=== PATIENT | female | born 1980 | race Caucasian/White ===

== ENCOUNTER 2023-01-09 15:54 | Observation (INO) ==
[2023-01-09 17:12] LABS: Appearance Urine Clear (Clear); Bilirubin Urine Negative (Negative); Blood Urine Negative (Negative); Color Urine Yellow; Glucose Urine UA Negative (Negative); Ketones Urine Negative (Negative); Leukocyte Esterase Urine Negative (Negative); Nitrite Urine Negative (Negative); Protein Urine Negative (Negative); Specific Gravity Urine 1.004 (1.000-1.030); Urobilinogen Urine Negative (Negative); pH Urine 6.5 (4.5-7.5)
[2023-01-09] MEDS ORDERED: SODIUM CHLORIDE 0.9% 500 ML IV SCH (17:15)
[2023-01-09 17:24] LABS: Basophils # (auto) 0.02 K/uL (0-0.2); Basophils % (auto) 0.3 %; Eosinophils # (auto) 0.27 K/uL (0-0.50); Hematocrit (blood only) 35.6 % (37.0-47.0); Hemoglobin 12.1 g/dl (12.0-16.0); Immature Granulocytes # (auto) 0.01 K/uL (0.01-0.20); Immature Granulocytes % (auto) 0.1 %; Lymphocytes % (auto) 25.4 %; Mean Corpuscular Hemoglobin 30.8 pg (25.0-34.0); Mean Corpuscular Volume 90.6 fL (80.0-100.0); Mean Platelet Volume 10.8 fL (9.4-12.4); Monocytes # (auto) 0.33 K/uL (0.11-0.59); Monocytes % (auto) 4.9 %; Neutrophils # (auto) 4.36 K/uL (1.40-6.50); Neutrophils % (auto) 65.3 %; Platelet Count 181 K/uL (130-400); RDW Coefficient of Variation 13.1 % (11.5-14.5); RDW Standard Deviation 43.4 fL (36.4-46.3); Red Blood Count 3.93 M/uL (4.20-5.40); White Blood Count 6.69 K/ul (4.8-10.8)
[2023-01-09] MEDS ORDERED: THIAMINE HCL 100 MG, FOLIC ACID 1 MG in SODIUM CHLORIDE 0.9% 1000ML 1,000 ML IV STA (17:30)
[2023-01-09] MEDS ORDERED: CEROVITE ADV FORMULA TAB PO STA (17:30)
--- NOTE | 2023-01-09 17:30 | Emergency Department Note ---
Impression & Plan Alcohol abuse, Benzodiazepine abuse, Withdrawal syndrome ED Provider Note NAME: DAGMAR LI AGE: 42 SEX: F : 1980 ARRIVES VIA: Walk-In INFORMANT: [Patient] ED PROVIDER(S): [Delano Perry MD] CHIEF COMPLAINT: Detox request HISTORY OF PRESENT ILLNESS: The patient is a 42-year-old female with a history of alcohol abuse and benzodiazepine abuse. She had been sober for 19 months but a week ago, had some wine. The patient states that she then started taking a lot of Klonopin. She had been taking 1 Klonopin daily, 1 mg. The patient states that she took way too many Klonopin and was in the ED until she sobered up. She states that her last dose of Klonopin was yesterday morning, 1 mg. She has no more to take and she knows she will start to withdrawal. The patient states that in the past, she has had hallucinations and seizures from withdrawal. She currently feels paranoid. She is not suicidal but does not care if she dies. She is asking to be admitted to the hospital for detox for a few days and then possibly be transferred to a center for more intensive therapy. There has been no cough or cold or congestion. She has not had fever. No vomiting or diarrhea PMHx/PSHx: See Below SOCIAL HISTORY: See Below. PHYSICAL EXAM: GENERAL: Patient is in no acute distress. HEENT: No acute trauma, normocephalic atraumatic, mucous membranes moist, no nasal congestion. NECK: No stridor, no adenopathy, no meningismus, trachea is midline. LUNGS: Clear to auscultation bilaterally, no wheeze, no rhonchi, breath sounds equal. HEART: Without murmurs gallops or rubs, regular rate and rhythm. ABDOMEN: Soft, nontender, bowel sounds positive, no peritonitis. EXTREMITIES: No cyanosis or edema, full range of motion of all the joints without pain or difficulty, no signs for acute trauma. NEUROLOGIC: Oriented x 3, no acute motor or sensory deficits, no focal weakness. SKIN: No rash, no jaundice, no diaphoresis. Psychiatric: Cooperative, voluntary, not actively suicidal. DIFFERENTIAL DIAGNOSIS: Need for detox, psychosis, electrolyte imbalance, anemia, thyroid disorder, among others. EMERGENCY DEPARTMENT COURSE/PROCEDURES: Prior/Outside records reviewed: Previous ED note. ECG per my interpretation: Indication was withdrawal. The ECG shows a normal sinus rhythm with a rate of 77. There is some baseline artifact. There is no ST elevation, no PVCs but the QTc is 445. Continuous Cardiac Monitoring per my interpretation: An order was placed for continuous cardiac monitoring. The monitor shows a rate of 99 with normal sinus rhythm. MEDICAL DECISION MAKING: There is no leukocytosis or concerning anemia. There is a normal platelet count. Potassium slightly low at 3.2. No renal failure. No concerning liver enzyme elevation. Patient appeared to be in a euthyroid state. testing returned negative. Urinalysis did not show infection. Aspirin, Tylenol levels were undetectable. Alcohol level was elevated at 180. Urine tox was negative. COVID test returned negative. ECG showed a normal sinus rhythm, no ischemia or dysrhythmia. On exam, the patient was not toxic or febrile. She was beginning to feel paranoia consistent with early benzodiazepine and/or alcohol withdrawal. Patient received IV saline, 500 cc. She was given IV saline with multivitamins, thiamine and folate. She received 5 mg of IV Valium. The patient presents with benzodiazepine withdrawal. She has gone through this type of withdrawal before. She has been quite ill with this type of withdrawal before. The patient was asking for detox, this seemed appropriate. She currently seems medically clear for hospitalization. I spoke with the patient and case management, the on-call hospitalist was consulted. DISPOSITION: Patient's presentation and findings warrant a hospital stay. Past Med/Surg History Medical History History of alcohol abuse Hx of drug abuse Hx drug and alcohol abuse. Has been free from drugs and alcohol since May 2021. Intentional overdose Surgical History History of D&C History of oral surgery Family History Sister Breast cancer Denies family history of Ovarian cancer Prostate cancer Myocardial infarction Colorectal cancer Social History Smoking Status: Never smoker Age Started Using Tobacco: 41; Age Quit Using Tobacco: 42; Cigarettes Per Day: 20; Second Hand Exposure: No; Do You Dip or Chew Tobacco: No; Hx Alcohol Use: Yes Alcohol type: wine Hx Substance Use: Yes Last Used Substance: Days (ago) Last Used Substance Other:: 2 Substance Use Type Other:: Benzodiazepines Preferred Language: Nigerian Communication Ability: Effective Micro Lab Analyst Required: No Beliefs That Will Affect Care: None marital status: Current Living Situation: Alone Current Living Situation Comment: Lives at home alone current occupational status: unemployed How many Children do You have: 0 Other Information That Helps Us Care for You: No Feels Safe at Home: Hesitant to Answer Safety Concerns: Afraid for Self Childhood Exposure to Second-Hand Smoke: No Diet: regular caffeine: Yes Dental Care, Regularly: No Physical Activity Frequency: Daily Seatbelt Use: always Sunscreen Use: Yes Allergies Allergies Allergy/AdvReac Type Severity Reaction Status Date / Time No Known Allergies Allergy Verified 11/13/22 09:09 Home Meds Home Medications Medication Instructions Recorded Confirmed clonazepam 1 mg tablet (Klonopin) 1 mg PO DAILY 09/18/22 11/13/22 vortioxetine 10 mg tablet 10 mg PO DAILY 11/13/22 11/13/22 (Trintellix) Previous Rx's Medication Instructions Recorded doxycycline monohydrate 100 mg 100 mg PO BID #20 caps 11/13/22 capsule clonazepam 0.5 mg tablet See Rx Instructions .Route 01/07/23 .COMPLEX #5 tabs Results & Data (ED) Vital Signs Vital Signs - 24 hr 01/09/23 15:57 01/09/23 16:12 01/09/23 15:54 Temperature 36.7 C Temperature Source Temporal Artery Scan Pulse Rate 97 H 89 Pulse Rate from SpO2 Sensor Pulse Rhythm Regular Pulse Strength Normal Respiratory Rate 18 Blood Pressure 131/78 Blood Pressure Mean 95 Pulse Oximetry 96 98 Oxygen Delivery Method Room Air Room Air Oxygen Flow Rate 0 Sepsis Recent Fever Within 48 Hours No Sepsis New/Unexplained Change in Mental Status N/A Sepsis Action Taken by Nursing No Action Required Pulse Oximetry Post Tiitration 98 01/09/23 16:12 01/09/23 16:13 01/09/23 16:30 Temperature Temperature Source Pulse Rate 89 92 H Pulse Rate from SpO2 Sensor 89 94 H Pulse Rhythm Pulse Strength Respiratory Rate 32 H 20 Blood Pressure 123/74 Blood Pressure Mean 89 Pulse Oximetry 96 96 Oxygen Delivery Method Oxygen Flow Rate Sepsis Recent Fever Within 48 Hours Sepsis New/Unexplained Change in Mental Status Sepsis Action Taken by Nursing Pulse Oximetry Post Tiitration 01/09/23 16:40 01/09/23 16:50 Temperature Temperature Source Pulse Rate 87 103 H Pulse Rate from SpO2 Sensor 87 101 H Pulse Rhythm Pulse Strength Respiratory Rate 28 H 15 Blood Pressure Blood Pressure Mean Pulse Oximetry 97 94 Oxygen Delivery Method Oxygen Flow Rate Sepsis Recent Fever Within 48 Hours Sepsis New/Unexplained Change in Mental Status Sepsis Action Taken by Nursing Pulse Oximetry Post Tiitration Home Medications Current Medication List: was personally reviewed by me Laboratory Data Attestation: I reviewed the patient's lab results. 01/09/23 16:30 01/09/23 16:30 Lab Results 01/09/23 01/09/23 01/09/23 Range/Units 16:30 16:30 16:30 WBC 6.69 (4.8-10.8) K/ul RBC 3.93 L (4.20-5.40) M/uL Hgb 12.1 (12.0-16.0) g/dl Hct 35.6 L (37.0-47.0) % MCV 90.6 (80.0-100.0) fL MCH 30.8 (25.0-34.0) pg MCHC 34.0 (32.0-36.0) g/dL RDW Std Deviation 43.4 (36.4-46.3) fL RDW Coeff of [place] 13.1 (11.5-14.5) % Plt Count 181 (130-400) K/uL MPV 10.8 (9.4-12.4) fL Immature Gran % (Auto) 0.1 % Neut % (Auto) 65.3 % Lymph % (Auto) 25.4 % [place] % (Auto) 4.9 % Eos % (Auto) 4.0 % Baso % (Auto) 0.3 % Neut # (Auto) 4.36 (1.40-6.50) K/uL Lymph # (Auto) 1.70 (1.2-3.4) K/uL [place] # (Auto) 0.33 (0.11-0.59) K/uL Eos # (Auto) 0.27 (0-0.50) K/uL Baso # (Auto) 0.02 (0-0.2) K/uL Immature Gran # (Auto) 0.01 (0.01-0.20) K/uL Sodium 140 (136-145) mmol/L Potassium 3.2 L (3.5-5.1) mmol/L Chloride 108 H (98-107) mmol/L Carbon Dioxide 24 (21-32) mmol/L Anion Gap 8 (3-11) BUN 10 (6-23) mg/dl Creatinine 0.65 (0.6-1.2) mg/dl Est Cr Clr Drug Dosing 116.6 ml/min Est GFR ( Amer) 126.0 ml/min Est GFR (Non-Af Amer) 108.7 ml/min BUN/Creatinine Ratio 15.4 (10-20) Glucose 119 H (70-99(Fasting)) mg/dl Calcium 8.9 (8.6-10.3) mg/dl Magnesium 2.0 (1.7-2.4) mg/dl Total Bilirubin 0.3 (0.2-1.0) mg/dl AST 25 (13-39) U/L ALT 20 (7-52) U/L Alkaline Phosphatase 32 L (34-104) U/L Total Protein 7.0 (6.0-8.3) gm/dl Albumin 4.4 (3.4-5.0) gm/dl Globulin 2.6 (2.5-4.0) gm/dl Albumin/Globulin Ratio 1.7 (0.9-2) TSH 1.053 (0.300-4.500) uIu/ml HCG, Qual (Negative) Urine Color Urine Appearance (Clear) Urine pH (4.5-7.5) Ur Specific [place] (1.000-1.030) Urine Protein (Negative) Urine Glucose (UA) (Negative) Urine Ketones (Negative) Urine Blood (Negative) Urine Nitrite (Negative) Urine Bilirubin (Negative) Urine Urobilinogen (Negative) Ur Leukocyte Esterase (Negative) Salicylates (3.0-30) mg/dl Urine Opiates Screen (Neg) Ur Methadone, Qual (Neg) Acetaminophen (10-30) ug/ml Urine Barbiturates (Neg) Ur Phencyclidine (PCP) (Neg) U Amphetamin/Meth Scrn (Neg) MDMA (Ecstasy) Screen (Neg) U Benzodiazepines Scrn (Neg) Ur Cocaine Metabolite (Neg) U Marijuana (THC) Screen (Neg) Ethyl Alcohol mg/dL (<10.0) mg/dl 01/09/23 01/09/23 01/09/23 Range/Units 16:30 16:30 16:30 WBC (4.8-10.8) K/ul RBC (4.20-5.40) M/uL Hgb (12.0-16.0) g/dl Hct (37.0-47.0) % MCV (80.0-100.0) fL MCH (25.0-34.0) pg MCHC (32.0-36.0) g/dL RDW Std Deviation (36.4-46.3) fL RDW Coeff of [place] (11.5-14.5) % Plt Count (130-400) K/uL MPV (9.4-12.4) fL Immature Gran % (Auto) % Neut % (Auto) % Lymph % (Auto) % [place] % (Auto) % Eos % (Auto) % Baso % (Auto) % Neut # (Auto) (1.40-6.50) K/uL Lymph # (Auto) (1.2-3.4) K/uL [place] # (Auto) (0.11-0.59) K/uL Eos # (Auto) (0-0.50) K/uL Baso # (Auto) (0-0.2) K/uL Immature Gran # (Auto) (0.01-0.20) K/uL Sodium (136-145) mmol/L Potassium (3.5-5.1) mmol/L Chloride (98-107) mmol/L Carbon Dioxide (21-32) mmol/L Anion Gap (3-11) BUN (6-23) mg/dl Creatinine (0.6-1.2) mg/dl Est Cr Clr Drug Dosing ml/min Est GFR ( Amer) ml/min Est GFR (Non-Af Amer) ml/min BUN/Creatinine Ratio (10-20) Glucose (70-99(Fasting)) mg/dl Calcium (8.6-10.3) mg/dl Magnesium (1.7-2.4) mg/dl Total Bilirubin (0.2-1.0) mg/dl AST (13-39) U/L ALT (7-52) U/L Alkaline Phosphatase (34-104) U/L Total Protein (6.0-8.3) gm/dl Albumin (3.4-5.0) gm/dl Globulin (2.5-4.0) gm/dl Albumin/Globulin Ratio (0.9-2) TSH (0.300-4.500) uIu/ml HCG, Qual (Negative) Urine Color Yellow Urine Appearance Clear (Clear) Urine pH 6.5 (4.5-7.5) Ur Specific [place] 1.004 (1.000-1.030) Urine Protein Negative (Negative) Urine Glucose (UA) Negative (Negative) Urine Ketones Negative (Negative) Urine Blood Negative (Negative) Urine Nitrite Negative (Negative) Urine Bilirubin Negative (Negative) Urine Urobilinogen Negative (Negative) Ur Leukocyte Esterase Negative (Negative) Salicylates < 3.0 L (3.0-30) mg/dl Urine Opiates Screen (Neg) Ur Methadone, Qual (Neg) Acetaminophen < 3 L (10-30) ug/ml Urine Barbiturates (Neg) Ur Phencyclidine (PCP) (Neg) U Amphetamin/Meth Scrn (Neg) MDMA (Ecstasy) Screen (Neg) U Benzodiazepines Scrn (Neg) Ur Cocaine Metabolite (Neg) U Marijuana (THC) Screen (Neg) Ethyl Alcohol mg/dL 180.0 H (<10.0) mg/dl 01/09/23 01/09/23 Range/Units 16:30 16:30 WBC (4.8-10.8) K/ul RBC (4.20-5.40) M/uL Hgb (12.0-16.0) g/dl Hct (37.0-47.0) % MCV (80.0-100.0) fL MCH (25.0-34.0) pg MCHC (32.0-36.0) g/dL RDW Std Deviation (36.4-46.3) fL RDW Coeff of Zahra[place] (11.5-14.5) % Plt Count (130-400) K/uL MPV (9.4-12.4) fL Immature Gran % (Auto) % Neut % (Auto) % Lymph % (Auto) % [place] % (Auto) % Eos % (Auto) % Baso % (Auto) % Neut # (Auto) (1.40-6.50) K/uL Lymph # (Auto) (1.2-3.4) K/uL [place] # (Auto) (0.11-0.59) K/uL Eos # (Auto) (0-0.50) K/uL Baso # (Auto) (0-0.2) K/uL Immature Gran # (Auto) (0.01-0.20) K/uL Sodium (136-145) mmol/L Potassium (3.5-5.1) mmol/L Chloride (98-107) mmol/L Carbon Dioxide (21-32) mmol/L Anion Gap (3-11) BUN (6-23) mg/dl Creatinine (0.6-1.2) mg/dl Est Cr Clr Drug Dosing ml/min Est GFR ( Amer) ml/min Est GFR (Non-Af Amer) ml/min BUN/Creatinine Ratio (10-20) Glucose (70-99(Fasting)) mg/dl Calcium (8.6-10.3) mg/dl Magnesium (1.7-2.4) mg/dl Total Bilirubin (0.2-1.0) mg/dl AST (13-39) U/L ALT (7-52) U/L Alkaline Phosphatase (34-104) U/L Total Protein (6.0-8.3) gm/dl Albumin (3.4-5.0) gm/dl Globulin (2.5-4.0) gm/dl Albumin/Globulin Ratio (0.9-2) TSH (0.300-4.500) uIu/ml HCG, Qual Negative (Negative) Urine Color Urine Appearance (Clear) Urine pH (4.5-7.5) Ur Specific [place] (1.000-1.030) Urine Protein (Negative) Urine Glucose (UA) (Negative) Urine Ketones (Negative) Urine Blood (Negative) Urine Nitrite (Negative) Urine Bilirubin (Negative) Urine Urobilinogen (Negative) Ur Leukocyte Esterase (Negative) Salicylates (3.0-30) mg/dl Urine Opiates Screen Neg (Neg) Ur Methadone, Qual Neg (Neg) Acetaminophen (10-30) ug/ml Urine Barbiturates Neg (Neg) Ur Phencyclidine (PCP) Neg (Neg) U Amphetamin/Meth Scrn Neg (Neg) MDMA (Ecstasy) Screen Neg (Neg) U Benzodiazepines Scrn Neg (Neg) Ur Cocaine Metabolite Neg (Neg) U Marijuana (THC) Screen Neg (Neg) Ethyl Alcohol mg/dL (<10.0) mg/dl Administered Medications Discontinued Medications Diazepam (Diazepam 5 Mg/Ml Inj 10ml Vial) 5 mg IV NOW STA Stop: 01/09/23 17:31 Last Admin: 01/09/23 18:30 Dose: 5 mg Documented By: ACC Sodium Chloride (Nss) 500 mls @ 999 mls/hr IV .Q31M LEXX Stop: 01/09/23 17:45 Last Infusion: 01/09/23 18:49 Dose: 0 mls/hr Documented By: Admin: 01/09/23 17:30 Dose: 999 mls/hr Documented By: ACC Thiamine HCl 100 mg/ Folic (Acid 1 mg/ Sodium Chloride) 1,001.2 mls @ 500 mls/hr IV .Q2H1M STA; Protocol Stop: 01/09/23 19:30 Last Infusion: 01/09/23 21:45 Dose: 0 mls/hr Documented By: Admin: 01/09/23 18:31 Dose: 500 mls/hr Documented By: ACC Multivitamins/Minerals (Cerovite Adv Formula Tab) 1 tab PO ONE STA Stop: 01/09/23 17:31 Last Admin: 01/09/23 18:30 Dose: 1 tab Documented By: ACC Potassium Chloride (Potassium Chloride Crtab 20 Meq Tabcr) 20 meq PO NOW STA Stop: 01/09/23 18:34 Last Admin: 01/09/23 19:23 Dose: 20 meq Documented By: Discharge Plan Visit Data Chief Complaint: Detox Request Stated Complaint: DETOX REQUEST ED Provider: Delano Perry Discharge Problem: Alcohol abuse, Benzodiazepine abuse, Withdrawal syndrome Patient Disposition: Admitted As Inpatient Condition: Fair Discharge Instructions Interventions: ED Discharge Assessment Last Done: 01/09/23 20:00
[2023-01-09 17:31] LABS: Pregnancy Test, Serum Negative (Negative)
[2023-01-09 17:42] LABS: Albumin Globulin Ratio 1.7 (0.9-2); Albumin Level 4.4 gm/dl (3.4-5.0); BUN Creatinine Ratio 15.4 (10-20); Bilirubin,Total 0.3 mg/dl (0.2-1.0); Calcium 8.9 mg/dl (8.6-10.3); Creatinine Clr Calc Pharmacy 116.6 ml/min; Est GFR (Non-African American) 108.7 ml/min; Globulin 2.6 gm/dl (2.5-4.0); Potassium 3.2 mmol/L (3.5-5.1)
[2023-01-09 17:59] LABS: Acetaminophen < 3 ug/ml (10-30); Salicylate < 3.0 mg/dl (3.0-30)
[2023-01-09 18:08] LABS: Amphetamines+Metham, Urine Neg (Neg); Barbiturates, Urine Neg (Neg); Benzodiazepine, Urine Neg (Neg); Cocaine, Urine Neg (Neg); MDMA (Ecstacy), Urine Neg (Neg); Methadone, Urine Neg (Neg); Opiate, Urine Neg (Neg); Phencyclidine, Urine Neg (Neg)
--- NOTE | 2023-01-09 18:23 | History & Physical Report ---
Date of Service January 09, 2023 Assessment & Plan (1) Intentional clonazepam overdose: Plan: Clonazepam overdose, alcohol abuse with history of seizure and DTs/concern for suicidality Patient has a prior history of both alcohol abuse and benzodiazepine abuse She is continued on clonazepam 1 mg daily for breathing somatic dysfunction which had failed all treatments except gabapentin and clonazepam She reports that she was in rehab "a while "ago and was clean for 19 months until 1 week ago when she had some wine and then began to decompensate and was drinking "a lot "of wine and sometimes fireball She reports that 2 days ago she took all 25 remaining 1 mg tablets of her Klonopin. She reports she did not have suicidal intention or ideation, but also did not care if she lived. She reports she took these because she was having trouble sleeping waking up and worrying about whether she would or would not drink alcohol. 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 Positive alcohol while in the ER, last drink was morning of admission. Denies any benzodiazepine ingestion since she took the tablets 2 days ago Many years ago at a prior hospitalization for detox she had hallucinations and seizures at around day 3 of benzodiazepine withdrawal Received diazepam while in the ER We will admit on DHARMESH S protocol. No airway compromise CM and psych consulted. Does not overtly endorse SI/HI, but did have gestural ingestion with the intention to make her worries go away. Continue on one-to-one and suicide precautions with safe tray at this time Received banana bag Continue thiamine, folic acid daily Ethyl alcohol 180 at 1630, acetaminophen is negative, salicylates negative. No coingestions - Remaining tox screen negative - Clonazepam 2 days ago unlikely to precipiate toxic ingestion at this time. Rouses easily, although was initially very confused and does not remember coming to the ER. After reorientation is able to give a reasonably accurate history. Given high risk of seizures and benzo withdrawal agree with diazepam administration while in ER, and will continue DHARMESH S. Patient is agreeable to looking for rehab placement EKG: QTc 445, normal sinus rhythm without ischemic change Somatic dysfunction of breathing Patient reports a discomfort with breathing which while is not anxiety is related to anxiety and is only improved with clonazepam AWSS as noted No hypoxia DVT prophylaxis: Low risk SCDs Disposition: PCU given seizure precautions, past seizures, and active withdrawal with congestion CODE STATUS: Full Diet: Safe Tray (2) Alcohol intoxication: (3) Intentional overdose: (4) Somatic dysfunction of pelvic region: (5) Hx of drug abuse: History of Present Illness Primary Care Provider: DO Adia Michaelgaurav Woo is a 42-year-old female with a past medical history of alcohol abuse, clonazepam abuse, somatic dysfunction, anxiety/depression who presents after a relapse with alcohol use and withdrawal symptoms. She has a history of hallucinations and seizures with alcohol withdrawal in the past. Adia reports she has been abusing benzos. she has been sober for 19 months and last she relapsed and started drinking some wine but then decided to take all of her Klonopin. Took 25x 1mg tablets of klonopin 2 days ago. Takes clonopin 1mg per day at bedtime for 'not anxiety but a breathing condition related to anxiety which the klopin helps." Had tried many remedies over 20 years and only gabapentin and klonopin help. No shortness of breath or chest pain at time of admission. Adia reports 'things were going really well last week." [place] to be closer to family. Doing well with her own apartment, an dher job has been going well and isn't really sure what caused her to relapse. She had a interview at [facility] but felt it went good and 'felt like fuck it I'll celebrate a little.' She reports that she was tired of waking up and thinking and worrying over drinking after having some wine the night before so took the klonopin to make the thoughts go away. Sheknows she could from klonopin and while she did not have active SI, also did not care if she or not. Denies SI/HI. Medical History: Reviewed Medications: Reviewed Surgical History: Reviewed Family history: Reviewed Allergies: Reviewed Social History: See HPI Code Status: Full Allergies Allergy/AdvReac Type Severity Reaction Status Date / Time No Known Allergies Allergy Verified 11/13/22 09:09 Home Medications Medication Instructions Recorded Confirmed Type clonazepam 1 mg tablet (Klonopin) 1 mg PO DAILY 09/18/22 11/13/22 History doxycycline monohydrate 100 mg 100 mg PO BID #20 caps 11/13/22 11/13/22 Rx capsule vortioxetine 10 mg tablet 10 mg PO DAILY 11/13/22 11/13/22 History (Trintellix) clonazepam 0.5 mg tablet See Rx Instructions .Route 01/07/23 Rx .COMPLEX #5 tabs Past Med/Surg History Surgical History History of D&C History of oral surgery Family History Sister Breast cancer Denies family history of Ovarian cancer Prostate cancer Myocardial infarction Colorectal cancer Social History Smoking Status: Former smoker Age Started Using Tobacco: 41; Age Quit Using Tobacco: 42; Cigarettes Per Day: 20; Second Hand Exposure: No; Do You Dip or Chew Tobacco: No; Hx Alcohol Use: No Hx Substance Use: No Preferred Language: Khmer Communication Ability: Effective Soc Analyst Required: No marital status: Current Living Situation: Family current occupational status: unemployed How many Children do You have: 0 Feels Safe at Home: Yes Childhood Exposure to Second-Hand Smoke: No Diet: regular caffeine: Yes Dental Care, Regularly: No Physical Activity Frequency: Daily Seatbelt Use: always Sunscreen Use: Yes Review of Systems Review of Systems: All systems reviewed & are unremarkable except as noted in HPI & below Physical Exam Physical Exam: General: Not oriented when she awakes initially, reorients easily including ER/day of week/place HEENT: Atraumatic, normocephalic. Patient/hearing grossly intact Pulm: CTAB A&P. -wheezes, -rales, -rhonchi. Symmetrical chest rise. No increased work of breathing. No respiratory distress. Cardiac: Regular, tachycardic, no murmurs or radial pulses intact and symmetrical. Abdominal: Nontender, nondistended, soft. BS present. Extremities: Slightly tremulous, otherwise warm and dry. Sensation soft touch intact in hands and feet. Moves all extremities equally. No interdigital or antecubital chahal Results & Data Results & Data Vital Signs (Past 12 Hours) Vital Signs Temp Pulse Resp BP Pulse Ox O2 Del Method O2 Flow Rate 01/09/23 16:50 103 H 15 94 01/09/23 16:40 87 28 H 97 01/09/23 16:30 92 H 20 96 01/09/23 16:13 89 32 H 96 01/09/23 16:12 123/74 01/09/23 15:54 98 Room Air 0 01/09/23 16:12 89 01/09/23 15:57 36.7 C 97 H 18 131/78 96 Room Air PG Care Time/CCT Total # of Minutes Spent Total Time Spent with Patient: Total time spent is greater than 50% in coordination of care (as documented) at patient's floor/unit and/or counseling patient: Coding Level of Care Code 36820 INT INP/OBS CARE 3/75MIN Diagnoses Intentional clonazepam overdose T42.4X2A Alcohol intoxication F10.929 Intentional overdose T50.902A Somatic dysfunction of pelvic region M99.05 Hx of drug abuse F19.11
[2023-01-09] MEDS ORDERED: POTASSIUM CHLORIDE CRTAB 20 MEQ TABCR PO STA (18:33)
[2023-01-09] MEDS ORDERED: LORazepam 2 MG/1 ML VIAL IV PRN ×3 (20:56)
[2023-01-09] MEDS ORDERED: Ativan IV Alcohol Withdrawal--Active Protocol IV PRN (20:56)
[2023-01-10 06:54] LABS: Basophils # (auto) 0.02 K/uL (0-0.2); Basophils % (auto) 0.5 %; Eosinophils # (auto) 0.29 K/uL (0-0.50); Eosinophils % (auto) 6.7 %; Hematocrit (blood only) 34.5 % (37.0-47.0); Hemoglobin 11.9 g/dl (12.0-16.0); Immature Granulocytes # (auto) 0.01 K/uL (0.01-0.20); Immature Granulocytes % (auto) 0.2 %; Lymphocytes % (auto) 27.7 %; Mean Corpuscular Hemoglobin 31.3 pg (25.0-34.0); Mean Corpuscular Hgb Conc 34.5 g/dL (32.0-36.0); Mean Corpuscular Volume 90.8 fL (80.0-100.0); Mean Platelet Volume 10.9 fL (9.4-12.4); Monocytes # (auto) 0.25 K/uL (0.11-0.59); Monocytes % (auto) 5.8 %; Neutrophils # (auto) 2.56 K/uL (1.40-6.50); Neutrophils % (auto) 59.1 %; Platelet Count 135 K/uL (130-400); RDW Coefficient of Variation 13.2 % (11.5-14.5); RDW Standard Deviation 43.9 fL (36.4-46.3); White Blood Count 4.33 K/ul (4.8-10.8)
[2023-01-10 07:17] LABS: Albumin Globulin Ratio 1.5 (0.9-2); Albumin Level 3.7 gm/dl (3.4-5.0); BUN Creatinine Ratio 14.7 (10-20); Bilirubin,Total 0.7 mg/dl (0.2-1.0); Calcium 8.4 mg/dl (8.6-10.3); Creatinine Clr Calc Pharmacy 111.5 ml/min; Est GFR (African American) 124.2 ml/min; Est GFR (Non-African American) 107.1 ml/min; Globulin 2.4 gm/dl (2.5-4.0); Total Protein 6.1 gm/dl (6.0-8.3)
--- NOTE | 2023-01-10 07:56 | Hospitalist Progress Note ---
Date of Service January 10, 2023 Assessment & Plan (1) Intentional clonazepam overdose: Plan: Clonazepam overdose, alcohol abuse with history of seizure and DTs/concern for suicidality Patient has a prior history of both alcohol abuse and benzodiazepine abuse Home medication includes clonazepam 1 mg daily for breathing somatic dysfunction which had failed all treatments except gabapentin and clonazepam After recent rehab she was off alcohol for many months relapsed, but then was worried about drinking and took excessive clonazepam Is on vortioxetine a seroton modulator and stimulator CM and psych consulted. Does not overtly endorse SI/HI, but did have gestural ingestion with the intention to make her worries go away. Continue on one-to-one and suicide precautions with safe tray at this time Continue thiamine, folic acid daily Patient is agreeable to looking for rehab placement Somatic dysfunction of breathing Patient reports a discomfort with breathing which while is not anxiety is related to anxiety and is only improved with clonazepam AWSS as noted No hypoxia DVT prophylaxis: Low risk SCDs Disposition: PCU given seizure precautions, past seizures, and active withdrawal with congestion CODE STATUS: Full Diet: Safe Tray (2) Alcohol intoxication: (3) Intentional overdose: (4) Somatic dysfunction of pelvic region: (5) Hx of drug abuse: Admission and Anticipated Discharge Date Admission Date: January 09, 2023 Results & Data Results & Data Vital Signs (Past 12 Hours) Vital Signs Temp Pulse Pulse Resp BP Pulse Ox O2 Del Method 01/10/23 03:19 98.4 F 71 16 116/75 97 Room Air 01/09/23 23:00 69 01/09/23 22:44 97.5 F L 67 18 127/84 97 Room Air 01/09/23 20:56 98.1 F 61 18 142/94 H 97 Room Air PG Care Time/CCT Total # of Minutes Spent Total Time Spent with Patient: Total time spent is greater than 50% in coordination of care (as documented) at patient's floor/unit and/or counseling patient: Coding Diagnoses Intentional clonazepam overdose T42.4X2A Alcohol intoxication F10.929 Intentional overdose T50.902A Somatic dysfunction of pelvic region M99.05 Hx of drug abuse F19.11
[2023-01-10] MEDS ORDERED: FOLIC ACID 1 MG in SYRINGE 9.8 ML IV SCH (09:00)
[2023-01-10] MEDS ORDERED: THIAMINE HCL 100 MG in SYRINGE 9 ML IV SCH (09:00)
[2023-01-10] MEDS ORDERED: BISMUTH SUBSALICYLATE SUSP PO PRN (15:15)
[2023-01-10] MEDS ORDERED: clonazePAM 0.5 MG TAB PO STA (16:07)
--- NOTE | 2023-01-10 19:18 | Discharge Summary ---
Date of Service January 10, 2023 Admission HPI Per Admitting Provider Angeles Woo is a 42-year-old female with a past medical history of alcohol abuse, clonazepam abuse, somatic dysfunction, anxiety/depression who presents after a relapse with alcohol use and withdrawal symptoms. She has a history of hallucinations and seizures with alcohol withdrawal in the past. Adia reports she has been abusing benzos. she has been sober for 19 months and last she relapsed and started drinking some wine but then decided to take all of her Klonopin. Took 25x 1mg tablets of klonopin 2 days ago. Takes clonopin 1mg per day at bedtime for 'not anxiety but a breathing condition related to anxiety which the klopin helps." Had tried many remedies over 20 years and only gabapentin and klonopin help. No shortness of breath or chest pain at time of admission. Adia reports 'things were going really well last week." moved to [place] in June to be closer to family. Doing well with her own apartment, an dher job has been going well and isn't really sure what caused her to relapse. She had a interview at [facility] but felt it went good and 'felt like fuck it I'll celebrate a little.' She reports that she was tired of waking up and thinking and worrying over drinking after having some wine the night before so took the klonopin to make the thoughts go away. Sheknows she could from klonopin and while she did not have active SI, also did not care if she or not. Denies SI/HI. Medical History: Reviewed Medications: Reviewed Surgical History: Reviewed Family history: Reviewed Allergies: Reviewed Social History: See HPI Code Status: Full Principal Diagnosis intentional benzodiazepine overdose now resolved Discharge Exam physical exam is without distress she is alert and clear she is protecting airway not slurring speech able to ambulate Discharge Data Allergies Allergy/AdvReac Type Severity Reaction Status Date / Time No Known Allergies Allergy Verified 11/13/22 09:09 Consultations 01/09/23 18:06 ED Decision to Admit Stat 01/09/23 20:56 Consult Behavioral Health Liaison Routine Hospital Course (1) Intentional clonazepam overdose: Clonazepam overdose, alcohol abuse with history of seizure and DTs/concern for suicidality Patient has a prior history of both alcohol abuse and benzodiazepine abuse Home medication includes clonazepam 1 mg daily for breathing somatic dysfunction which had failed all treatments except gabapentin and clonazepam After recent rehab she was off alcohol for many months relapsed, but then was worried about drinking and took excessive clonazepam Is on vortioxetine a seroton modulator and stimulator patient now thinks she can control her self at home with supportive friends she is gonorrhea and role with [facility]. Patient has a friend coming again at this evening will be given a prescription for clonazepam to get her to her next fill state and is following with [place] care physician Somatic dysfunction of breathing Patient reports a discomfort with breathing which while is not anxiety is related to anxiety and is only improved with clonazepam (2) Alcohol intoxication: (3) Intentional overdose: (4) Somatic dysfunction of pelvic region: (5) Hx of drug abuse: Total Time Total Time Spent Total Time Spent (In Minutes): it required greater than 30 minutes to prepare this patient for discharge Discharge Plan Discharge Items Patient Disposition: Home - Self-Care Reason For Visit: BENZO INGESTION, WITHDRAWAL, HX SEIZURE Discharge Diagnosis: benzodiazepine overdose alcohol ingestion Condition on Discharge: Fair Activity: Resume your previous activity Non-emergency contact: Primary Care Provider Call non-emergency contact if: your symptoms worsen Follow-up/Referrals: Jair Cui, [Primary Care Provider] - Diet: Regular Addtl Attending Provider Instructions: please do not take more than one full tablet of clonazepam a day contact your primary care and your counsellor as soon as possible for a follow up Pending Studies at Discharge: No Stand-Alone Forms: My [id number], Smoking Cessation Medications and DC Order Prescriptions: Continued Trintellix 10 mg tablet 10 mg PO DAILY clonazepam [Klonopin] 1 mg tablet 1 mg PO DAILY Qty: 24 0RF Discontinued doxycycline monohydrate 100 mg capsule 100 mg PO BID Qty: 20 0RF clonazepam 0.5 mg tablet See Rx Instructions .ROUTE .COMPLEX Qty: 5 0RF Rx Instructions: Take 2 tab x 1 day, 1 tab x 1 day, 1/2 tab x 2 days Discharge Orders: Discharge Order (Routine); Ordered 01/10/23 Ordered By: Juan Khoury Admission Data Admit Date/Time: 01/09/23 18:55 Attending Provider: Juan Khoury Admit Provider: Ankit Gupta Primary Care Provider: Jair Cui Other Providers: Ankit Gupta Other Interventions: Discharge Summary Assessment (RN) Last Done: 01/10/23 16:28 Coding Level of Care Code 61231 INP/OBS DISCH >30 MIN Diagnoses Intentional clonazepam overdose T42.4X2A Alcohol intoxication F10.929 Intentional overdose T50.902A Somatic dysfunction of pelvic region M99.05 Hx of drug abuse F19.11
--- NOTE | 2023-01-11 06:32 | Electrocardiogram Report ---
Test Reason : Blood Pressure : / mmHG Vent. Rate : 077 BPM Atrial Rate : 077 BPM P-R Int : 166 ms QRS Dur : 088 ms QT Int : 394 ms P-R-T Axes : 050 033 045 degrees QTc Int : 445 ms Normal sinus rhythm When compared with ECG of 07-JAN-2023 15:36, No significant change was found Confirmed by Juanpablo Lawrence ([id number]) on 01/11/2023 6:31:52 AM Referred By: REFERRED SELF Confirmed By:Juanpablo Lawrence
== END 2023-01-10 17:32 | disposition home or self-care (01) | DRG 918 ==
LOC: ED 15:54 → 2S 18:55 → SUATTDRO 18:55 → INTOOBSV 18:55 → 2S 20:00

== ENCOUNTER 2023-12-20 15:58 | Observation (INO) ==
--- NOTE | 2023-12-20 16:06 | Emergency Department Note ---
ED Provider Note History of Present Illness Chief Complaint: Bite Stated Complaint: LEFT FOOT SPIDER BITE Time Seen by Provider: 12/20/23 16:05 This is a 43-year-old female who returns to the emergency department with pain in her left foot, concerned the infection is getting worse. Patient was seen in this emergency department last night and early this morning and diagnosed with an infection in her toe spreading onto her foot. She had normal labs this morning and was given a dose of Rocephin and instructed to start Bactrim for possible MRSA. Culture is pending. Please see prior ED notes for further details. Patient states that she has not started the Bactrim. She went home and took a nap after being seen this morning, and when she woke up she felt like the pain was worse in her foot and she felt like she had a fever, felt very warm. She did not check her temperature. She has not taken any Tylenol or ibuprofen since being given Toradol this morning. She left the Ruelas wrap in place, and has not seen any red streaks going up her leg above the wrap. She states that the pain in her foot is more than it was earlier today. Has not had any vomiting. Denies any pain in her groin. Denies any IV drug use. No chance of right now. Home Medications Medication Instructions Recorded Confirmed Type epinephrine 0.3 mg/0.3 mL 0.3 mg (0.3 mL) subcut Q10M PRN 10/28/23 12/20/23 Rx injection syringe anaphylaxis #2 ea sulfamethoxazole 800 1 tab PO BID 7 days #14 tabs 12/19/23 12/20/23 Rx mg-trimethoprim 160 mg tablet (Bactrim DS) clonazepam 0.5 mg tablet 0.5 mg PO HS anxiety 12/20/23 12/20/23 History gabapentin 400 mg capsule 0 mg PO HS 12/20/23 12/20/23 History Allergies Allergy/AdvReac Type Severity Reaction Status Date / Time hornet venom Allergy Severe Anaphylaxis Unverified 12/20/23 18:13 Past Med/Surg History Problem List (Updated 12/20/23 @ 23:41 by ARTHUR Damon) Open wound of second toe of left foot (Acute) Cellulitis of foot, left (Acute) Cellulitis of second toe of left foot (Acute) Toe infection (Acute) Cellulitis (Acute) Hx of herpes genitalis Hx of cold sores Anaphylactic reaction to wasp sting to wasps and red ants Alcohol abuse (Acute) History of alcohol abuse (Acute) Hx of drug abuse Hx drug and alcohol abuse. Has been free from drugs and alcohol since May 2021. Dyspnea Arthritis Somatic dysfunction of pelvic region Somatic dysfunction of lumbar region Somatic dysfunction of thoracic region Somatic dysfunction of cervical region Somatic dysfunction of rib Chest pain Lightheadedness Anxiety (Acute) Medical History Withdrawal syndrome Benzodiazepine abuse Intentional overdose Surgical History History of oral surgery History of D&C Family History Sister Breast cancer Denies family history of Ovarian cancer Prostate cancer Myocardial infarction Colorectal cancer Social History Smoking Status: Never smoker Age Started Using Tobacco: 41; Age Quit Using Tobacco: 42; Cigarettes Per Day: 20; Second Hand Exposure: No; Do You Dip or Chew Tobacco: No; Hx Alcohol Use: Yes Alcohol type: wine Hx Substance Use: Yes Last Used Substance: Days (ago) Last Used Substance Other:: 2 Substance Use Type Other:: Benzodiazepines Preferred Language: Bahamian Communication Ability: Effective Manager Respiratory Required: No Beliefs That Will Affect Care: None marital status: Current Living Situation: Alone Current Living Situation Comment: Lives at home alone current occupational status: unemployed How many Children do You have: 0 Feels Safe at Home: Yes Childhood Exposure to Second-Hand Smoke: No Diet: regular caffeine: Yes Dental Care, Regularly: No Physical Activity Frequency: Daily Seatbelt Use: always Sunscreen Use: Yes Assistive Devices: None Physical Exam Vital Signs Vital Signs - 24 hr 12/20/23 16:01 Temperature 98.8 F Temperature Source Oral Pulse Rate 109 H Respiratory Rate 18 Respiratory Effort / Characteristics Non-Labored Spontaneous Respiratory Depth Normal Respiratory Pattern Regular Blood Pressure 148/81 H Blood Pressure Mean 103 Blood Pressure Position Sitting Pulse Oximetry 99 Oxygen Delivery Method Room Air Sepsis Recent Fever Within 48 Hours No Sepsis New/Unexplained Change in Mental Status No Sepsis Action Taken by Nursing No Action Required CONSTITUTIONAL: Well developed, well nourished, mildly uncomfortable, nontoxic. HEAD: Normocephalic, atraumatic. NECK: Full active range of motion. RESPIRATORY: Breathing unlabored and symmetric. CARDIOVASCULAR: PT pulses 2+ bilaterally. Tachycardic rate. LYMPHATIC: No left inguinal adenopathy MUSCULOSKELETAL: Left foot: Area of purple discoloration noted at the base of the second toe with some serosanguineous/thin discharge. Several tiny areas of blistering are noted, no large blisters. There is surrounding erythema associated with the purple discoloration and there is erythema that extends onto the dorsum of the foot to about the midfoot. There is a subtle streak noted traveling up the dorsum of the foot, this stops at the ankle. There is no lymphatic streaking on the leg. This whole area is warm and tender. No significant tenderness with passive range of motion of the second toe. SKIN: [place], warm, dry. NEUROLOGIC: Awake, alert, oriented. Course Administered Medications Clonazepam (Clonazepam 0.5 Mg Tab) 0.5 mg PO HS LEXX Stop: 01/19/24 22:29 Last Admin: 12/20/23 23:17 Dose: 0.5 mg Documented By: ALONDRA Gabapentin (Gabapentin 400 Mg Cap) 400 mg PO TID PRN PRN Reason: anxiety Stop: 01/19/24 22:29 Last Admin: 12/20/23 23:17 Dose: 400 mg Documented By: ALONDRA Discontinued Medications Acetaminophen (Acetaminophen 500 Mg Tab) 1,000 mg PO NOW STA Stop: 12/20/23 16:25 Last Admin: 12/20/23 16:42 Dose: 1,000 mg Documented By: NAMAN Sodium Chloride (Nss) 1,000 mls @ 999 mls/hr IV .Q1H1M ONE Stop: 12/20/23 18:01 Last Infusion: 12/20/23 18:52 Dose: Infused Documented By: Admin: 12/20/23 17:37 Dose: 999 mls/hr Documented By: JOSÉ MIGUEL Vancomycin HCl 1,500 mg/ (Sodium Chloride) 530 mls @ 200 mls/hr IV NOW ONE Stop: 12/20/23 19:57 Last Infusion: 12/20/23 21:30 Dose: Infused Documented By: Admin: 12/20/23 18:43 Dose: 200 mls/hr Documented By: JOSÉ MIGUEL Ceftriaxone Sodium (Rocephin) 1,000 mg in 50 mls @ 100 mls/hr IV NOW STA Stop: 12/20/23 17:48 Last Infusion: 12/20/23 18:52 Dose: Infused Documented By: Admin: 12/20/23 18:03 Dose: 100 mls/hr Documented By: NAMAN Ketorolac Tromethamine (Ketorolac Tromethamine 15 Mg/Ml Vial) 15 mg IV NOW ONE Stop: 12/20/23 20:19 Last Admin: 12/20/23 20:40 Dose: 15 mg Documented By: KATIE Oxycodone HCl (Oxycodone Hcl Ir 5 Mg Tab (Immediate Release)) 5 mg PO NOW STA Stop: 12/20/23 17:02 Last Admin: 12/20/23 17:36 Dose: 5 mg Documented By: JOSÉ MIGUEL Trimethoprim/Sulfamethoxazole (Sulfamethoxazole/Trimethoprim Ds 800/160mg Tab) 1 tab PO NOW ONE Stop: 12/20/23 16:30 Last Admin: 12/20/23 16:42 Dose: 1 tab Documented By: NAMAN Medical Decision Making Differential Diagnosis Cellulitis, MRSA, insect bite, tenosynovitis, lymphangitis, osteomyelitis, foreign body, spider bite, among other pathology Laboratory Data 12/20/23 17:32 12/20/23 18:46 Lab Results 12/20/23 Range/Units 17:32 WBC 8.45 (4.8-10.8) K/ul RBC 4.51 (4.20-5.40) M/uL Hgb 14.3 (12.0-16.0) g/dl Hct 41.7 (37.0-47.0) % MCV 92.5 (80.0-100.0) fL MCH 31.7 (25.0-34.0) pg MCHC 34.3 (32.0-36.0) g/dL RDW Std Deviation 42.3 (36.4-46.3) fL RDW Coeff of Zahraa 12.5 (11.5-14.5) % Plt Count 178 (130-400) K/uL MPV 11.0 (9.4-12.4) fL Immature Gran % (Auto) 0.4 % Neut % (Auto) 81.8 % Lymph % (Auto) 8.0 % Bureau % (Auto) 5.0 % Eos % (Auto) 4.6 % Baso % (Auto) 0.2 % Neut # (Auto) 6.91 H (1.40-6.50) K/uL Lymph # (Auto) 0.68 L (1.20-3.40) K/uL Bureau # (Auto) 0.42 (0.11-0.59) K/uL Eos # (Auto) 0.39 (0.00-0.50) K/uL Baso # (Auto) 0.02 (0.00-0.20) K/uL Immature Gran # (Auto) 0.03 (0.01-0.20) K/uL Sodium 136 (136-145) mmol/L Potassium TNP Chloride 103 (98-107) mmol/L Carbon Dioxide 26 (21-32) mmol/L Anion Gap 7 (3-11) BUN 12 (6-23) mg/dl Creatinine 0.86 (0.6-1.2) mg/dl Est Cr Clr Drug Dosing 87.2 ml/min Est GFR ( Amer) 95.2 ml/min Est GFR (Non-Af Amer) 82.2 ml/min BUN/Creatinine Ratio 14.0 (10-20) Glucose 106 H (70-99(Fasting)) mg/dl Lactate 1.4 (0.4-2.0) mmol/L Calcium 9.3 (8.6-10.3) mg/dl Total Bilirubin 0.4 (0.2-1.0) mg/dl AST TNP ALT 12 (7-52) U/L Alkaline Phosphatase 29 L (34-104) U/L Total Protein 7.6 (6.0-8.3) gm/dl Albumin 4.6 (3.4-5.0) gm/dl Globulin 3.0 (2.5-4.0) gm/dl Albumin/Globulin Ratio 1.5 (0.9-2) Imaging Data Attestation: I personally reviewed and interpreted this imaging study as follows: (I agree with the radiologist's interpretation) Radiologist's Impression: Foot X-Ray 12/20/23 16:24 XR foot LT min 3V routine HISTORY: 43 years-old Female infection base 2nd toe onto dorsum foot acute pain and swelling of the left foot COMPARISON: None TECHNIQUE: 3 views of the left foot FINDINGS: Mild hallux valgus. Extension of the metatarsophalangeal joints. Moderate-sized calcaneal enthesophytes. No acute fracture, dislocation, osseous erosion or opaque foreign body identified. Mild soft tissue swelling of the forefoot. Distal fifth metatarsal cortical thickening suggestive of a healed fracture deformity. IMPRESSION: No acute osseous abnormality. ACT 112: Negative or not required by law. The above report was generated using voice recognition software. It may contain grammatical, syntax or spelling errors. Electronically signed by: Bobby Marinelli M.D. 12/20/2023 4:42 PM MDM Narrative This is a 43-year-old female who presents to the emergency department for her third visit since last night secondary to presumed infection originating at the left second toe extending onto the foot. Patient states that her pain is becoming more severe and she had a subjective fever at home after taking a nap this morning. See above for further details. Patient mildly uncomfortable on initial exam. She is tachycardic in the 110s. Temperature 99.5 orally on my evaluation. Ruelas wrap was removed and patient was evaluated. The erythema on her foot was now progressed further than this morning. There was nothing to drain. She does have lymphatic streaking on the foot which was documented this morning. An x-ray of the left foot was obtained demonstrating soft tissue swelling with no bony involvement, no foreign body. Prior ED records were reviewed. Case was reviewed with ED attending Dr. Villegas. As this is the patient's third visit, infection seems to be rapidly progressing. Considered inpatient versus outpatient management and I reviewed this with the patient at bedside. After a long discussion it was felt that admission for IV antibiotics, pain control would be prudent. At that time an IV was inserted and labs were obtained and she was given IV fluids. White blood cell count slightly higher than this morning at 8.45 but still normal. No electrolyte disturbances. Renal function normal. Lactate normal. Case discussed with Dr. Ross [facility] hospitalist who requests initiating vancomycin and giving second gram of Rocephin. Agrees to admit the patient. Impression Cellulitis of second toe of left foot, Cellulitis of foot, left, Open wound of second toe of left foot Discharge Plan Visit Data Chief Complaint: Bite Stated Complaint: LEFT FOOT SPIDER BITE ED Provider: Lb Villegas ED Midlevel Provider: Hakan Domingo Discharge Problem: Cellulitis of second toe of left foot, Cellulitis of foot, left, Open wound of second toe of left foot Patient Disposition: Admitted As Inpatient Condition: Fair Discharge Instructions Interventions: ED Discharge Assessment Last Done: 12/20/23 21:50 Discharge Problem: Open wound of second toe of left foot Qualifiers: Encounter type: initial encounter Qualified Code(s): S91.105A - Unspecified open wound of left lesser toe(s) without damage to nail, initial encounter
[2023-12-20] MEDS: SULFAMETHOXAZOLE/TRIMETHOPRIM DS 800/160MG TAB PO ONE (16:42)
[2023-12-20] MEDS: ACETAMINOPHEN 500 MG TAB PO STA (16:42)
--- NOTE | 2023-12-20 16:45 | XRay Report ---
XR foot LT min 3V routine HISTORY: 43 years-old Female infection base 2nd toe onto dorsum foot acute pain and swelling of the left foot COMPARISON: None TECHNIQUE: 3 views of the left foot FINDINGS: Mild hallux valgus. Extension of the metatarsophalangeal joints. Moderate-sized calcaneal enthesophyt es. No acute fracture, dislocation, osseous erosion or opaque foreign body identified. Mild soft tiss ue swelling of the forefoot. Distal fifth metatarsal cortical thickening suggestive of a healed fract ure deformity. IMPRESSION: No acute osseous abnormality. ACT 112: Negative or not required by law. The above report was generated using voice recognition software. It may contain grammatical, syntax o r spelling errors. Electronically signed by: Bobby Marinelli M.D. 12/20/2023 4:42 PM
[2023-12-20] MEDS ORDERED: VANCOMYCIN CONSULT ACTIVE PRN (17:19)
[2023-12-20] MEDS: oxyCODONE HCL IR 5 MG TAB (IMMEDIATE RELEASE) PO STA (17:36)
[2023-12-20] MEDS: SODIUM CHLORIDE 0.9% 1,000 ML IV ONE (17:37)
--- NOTE | 2023-12-20 17:49 | History & Physical Report ---
Date of Service December 20, 2023 Assessment & Plan (1) Cellulitis: Plan: Vancomycin - GPC on gram stain therefore no need to continue ceftriaxone Monitor for improvement (picture in H&P on admission) Elevate extremity (2) Toe infection: Plan: No osseous abnormality on XR Consider ortho consult for debridement pending clinical course Plan VTE Prophylaxis - low risk Diet - regular Disposition - observation to med/surg Admission and Anticipated Discharge Date Admission Date: December 20, 2023 History of Present Illness Chief Complaint: Foot infection Primary Care Provider: DO Angeles Michael Chilo is a 43 year old female who presents to the ER with fever, chills, foot infection. Started on - she thinks possible a bug bite. Came to ER last night and prescribed Keflex. Returned this morning and given ceftriaxone in the ER. Despite this erythema got much worse throughout the day despite not walking on it or leaving it down. Prior alcohol abuse but not currently and issue - very occasional use only. No prior or current IVDU. Non-smoker. Allergies Allergy/AdvReac Type Severity Reaction Status Date / Time hornet venom Allergy Severe Anaphylaxis Unverified 12/20/23 18:13 Home Medications Medication Instructions Recorded Confirmed Type epinephrine 0.3 mg/0.3 mL 0.3 mg (0.3 mL) subcut Q10M PRN 10/28/23 12/20/23 Rx injection syringe anaphylaxis #2 ea sulfamethoxazole 800 1 tab PO BID 7 days #14 tabs 12/19/23 12/20/23 Rx mg-trimethoprim 160 mg tablet (Bactrim DS) clonazepam 0.5 mg tablet 0.5 mg PO HS anxiety 12/20/23 12/20/23 History gabapentin 400 mg capsule 0 mg PO HS 12/20/23 12/20/23 History Past Med/Surg History Problem List Toe infection (Acute) Cellulitis (Acute) Hx of herpes genitalis Hx of cold sores Anaphylactic reaction to wasp sting to wasps and red ants Alcohol abuse (Acute) History of alcohol abuse (Acute) Hx of drug abuse Hx drug and alcohol abuse. Has been free from drugs and alcohol since May 2021. Dyspnea Arthritis Somatic dysfunction of pelvic region Somatic dysfunction of lumbar region Somatic dysfunction of thoracic region Somatic dysfunction of cervical region Somatic dysfunction of rib Chest pain Lightheadedness Anxiety (Acute) Medical History Withdrawal syndrome Benzodiazepine abuse Intentional overdose Surgical History History of oral surgery History of D&C Family History Sister Breast cancer Denies family history of Ovarian cancer Prostate cancer Myocardial infarction Colorectal cancer Social History Smoking Status: Never smoker Age Started Using Tobacco: 41; Age Quit Using Tobacco: 42; Cigarettes Per Day: 20; Second Hand Exposure: No; Do You Dip or Chew Tobacco: No; Hx Alcohol Use: Yes Alcohol type: wine Hx Substance Use: Yes Last Used Substance: Days (ago) Last Used Substance Other:: 2 Substance Use Type Other:: Benzodiazepines Preferred Language: Greek Communication Ability: Effective Seed Analyst Required: No Beliefs That Will Affect Care: None marital status: Current Living Situation: Alone Current Living Situation Comment: Lives at home alone current occupational status: unemployed How many Children do You have: 0 Feels Safe at Home: Yes Childhood Exposure to Second-Hand Smoke: No Diet: regular caffeine: Yes Dental Care, Regularly: No Physical Activity Frequency: Daily Seatbelt Use: always Sunscreen Use: Yes Assistive Devices: None Review of Systems 2 Review of Systems: All systems reviewed & are unremarkable except as noted in HPI & below Physical Exam 2 Constitutional: WD/WN, vitals as above Respiratory: normal respiratory effort, lungs clear to auscultation Cardiovascular: RRR, no murmur, no edema Skin: Psychiatric: A+Ox3, euthymic affect Results & Data Results & Data Vital Signs (Past 12 Hours) Vital Signs Temp Pulse Resp BP Pulse Ox O2 Del Method 12/20/23 16:01 37.1 C 109 H 18 148/81 H 99 Room Air Diagnostic Findings XR foot LT min 3V routine HISTORY: 43 years-old Female infection base 2nd toe onto dorsum foot acute pain and swelling of the left foot COMPARISON: None TECHNIQUE: 3 views of the left foot FINDINGS: Mild hallux valgus. Extension of the metatarsophalangeal joints. Moderate-sized calcaneal enthesophytes. No acute fracture, dislocation, osseous erosion or opaque foreign body identified. Mild soft tissue swelling of the forefoot. Distal fifth metatarsal cortical thickening suggestive of a healed fracture deformity. IMPRESSION: No acute osseous abnormality. Medications Administered ER Medications Given: NSS 1L bolus Vancomycin 1500mg IV Acetaminophen 1000mg PO Bactrim 800/160 1 tab PO Oxycodone 5mg PO Ceftriaxone 1g IV Code Status & VTE Plan Code Status Full VTE Prophylaxis Plan VTE Prophylaxis will be ordered: No Reason for no VTE drug order: Treatment not indicated PG Care Time/CCT Total # of Minutes Spent Total Time Spent with Patient: Total time spent is greater than 50% in coordination of care (as documented) at patient's floor/unit and/or counseling patient: Coding Level of Care Code 43692 INT INP/OBS CARE 2/55MIN Diagnoses Cellulitis L03.90 Site of cellulitis: unspecified site Toe infection L08.9 (1) Cellulitis Site of cellulitis: unspecified site Qualified Code(s): L03.90 - Cellulitis, unspecified
[2023-12-20 17:53] LABS: Basophils # (auto) 0.02 K/uL (0.00-0.20); Basophils % (auto) 0.2 %; Eosinophils # (auto) 0.39 K/uL (0.00-0.50); Eosinophils % (auto) 4.6 %; Hematocrit (blood only) 41.7 % (37.0-47.0); Hemoglobin 14.3 g/dl (12.0-16.0); Immature Granulocytes # (auto) 0.03 K/uL (0.01-0.20); Immature Granulocytes % (auto) 0.4 %; Lymphocytes # (auto) 0.68 K/uL (1.20-3.40); Mean Corpuscular Hemoglobin 31.7 pg (25.0-34.0); Mean Corpuscular Hgb Conc 34.3 g/dL (32.0-36.0); Mean Corpuscular Volume 92.5 fL (80.0-100.0); Monocytes # (auto) 0.42 K/uL (0.11-0.59); Neutrophils # (auto) 6.91 K/uL (1.40-6.50); Neutrophils % (auto) 81.8 %; Platelet Count 178 K/uL (130-400); RDW Coefficient of Variation 12.5 % (11.5-14.5); RDW Standard Deviation 42.3 fL (36.4-46.3); Red Blood Count 4.51 M/uL (4.20-5.40); White Blood Count 8.45 K/ul (4.8-10.8)
[2023-12-20] MEDS: cefTRIAXone SODIUM 1,000 MG/50 ML BAG IV STA (18:03)
[2023-12-20 18:32] LABS: Alanine Aminotransferase 12 U/L (7-52); Albumin Globulin Ratio 1.5 (0.9-2); Albumin Level 4.6 gm/dl (3.4-5.0); Alkaline Phosphatase 29 U/L (34-104); Anion Gap 7 (3-11); Bilirubin,Total 0.4 mg/dl (0.2-1.0); Blood Urea Nitrogen 12 mg/dl (6-23); Calcium 9.3 mg/dl (8.6-10.3); Carbon Dioxide 26 mmol/L (21-32); Chloride 103 mmol/L (98-107); Creatinine Clr Calc Pharmacy 87.2 ml/min; Est GFR (African American) 95.2 ml/min; Est GFR (Non-African American) 82.2 ml/min; Glucose 106 mg/dl (70-99(Fasting)); Sodium 136 mmol/L (136-145); Total Protein 7.6 gm/dl (6.0-8.3)
[2023-12-20] MEDS: VANCOMYCIN HCL 1,500 MG in SODIUM CHLORIDE 0.9% 500 ML IV ONE (18:43)
[2023-12-20 19:15] LABS: Potassium 3.7 mmol/L (3.5-5.1)
[2023-12-20] MEDS: KETOROLAC TROMETHAMINE 15 MG/ML VIAL IV ONE (20:40)
[2023-12-20] MEDS: GABAPENTIN 400 MG CAP PO PRN (23:17)
[2023-12-20] MEDS: clonazePAM 0.5 MG TAB PO SCH (23:17)
[2023-12-21] MEDS: VANCOMYCIN HCL 1,000 MG in SODIUM CHLORIDE 0.9% 250 ML IV SCH (02:48)
[2023-12-21] MEDS: ACETAMINOPHEN 500 MG TAB PO SCH (06:06)
[2023-12-21 06:21] LABS: Creatinine Clr Calc Pharmacy 89.3 ml/min; Est GFR (Non-African American) 84.5 ml/min
[2023-12-21 08:49] LABS: BUN Creatinine Ratio 14.8 (10-20); C Reactive Protein 4.1 mg/dl (0-0.5); Calcium 8.2 mg/dl (8.6-10.3); Creatinine Clr Calc Pharmacy 92.6 ml/min; Est GFR (African American) 102.4 ml/min; Est GFR (Non-African American) 88.3 ml/min; Hematocrit (blood only) 38.1 % (37.0-47.0); Hemoglobin 12.8 g/dl (12.0-16.0); Mean Corpuscular Hemoglobin 31.2 pg (25.0-34.0); Mean Corpuscular Hgb Conc 33.6 g/dL (32.0-36.0); Mean Corpuscular Volume 92.9 fL (80.0-100.0); Mean Platelet Volume 11.1 fL (9.4-12.4); Platelet Count 163 K/uL (130-400); RDW Coefficient of Variation 12.6 % (11.5-14.5); White Blood Count 6.03 K/ul (4.8-10.8)
--- NOTE | 2023-12-21 09:32 | Hospitalist Progress Note ---
Date of Service December 21, 2023 Assessment & Plan (1) Cellulitis: Plan: Patient originally presented to the ED on 12/19 for evaluation of left second toe. She was diagnosed with cellulitis and she was discharged home on Keflex. Patient then presented back to the ER in the evening of 12/19 with complaints of infection worsening. -Wound culture prelim results from 12/19 showing gram positive cocci -Patient placed on vancomycin q12h -Await blood culture results -Consulted ortho to eval for debridement, appreciate recommendations -Consulted wound nurse -Reviewed labs from 12/20 which revealed normal WBC of 6.03, procalcitonin 0.07, CRP 4.10 -Reviewed XR from 12/19 which was negative for osseous abnormalities. -Continue to elevate extremity AM CBC and BMP Plan VTE Prophylaxis - low risk Diet - regular Disposition - observation to med/surg Admission and Anticipated Discharge Date Admission Date: December 20, 2023 Subjective Patient seen and examined this morning at bedside. Patient denied any fevers, chills, chest pain, SOB. She did note she has not moved her bowels for about 3-4 days now and would like a dose of miralax. She feels her cellulitis is worsening of her left 2nd toe. She stated another fluid collection appeared and it is still oozing discharge on left 2nd toe. Physical Exam 2 Constitutional: WD/WN, vitals as above Eyes: PERRL, conjunctivae normal, anicteric sclerae ENMT: external ear and nose normal, oropharynx normal Cardiovascular: RRR, no murmur, no edema Skin: left second toe: erythema, oozing exudate. Fluid collection in superior portion of toe. Neurologic: PERRL, EOMI, accommodation nl, no face palsy, no dysarthria Psychiatric: A+Ox3, euthymic affect Results & Data Results & Data Vital Signs (Past 12 Hours) Vital Signs Temp Pulse Pulse Resp BP BP Pulse Ox 12/21/23 08:00 12/21/23 07:08 37.2 C 91 H 14 123/73 95 12/20/23 22:00 37.3 C 92 H 18 119/70 94 O2 Del Method 12/21/23 08:00 Room Air 12/21/23 07:08 Room Air 12/20/23 22:00 Room Air Laboratory Results 12/21/23 05:46 12/21/23 05:46 Diagnostic Findings Foot X-Ray 12/20/23 16:24 XR foot LT min 3V routine HISTORY: 43 years-old Female infection base 2nd toe onto dorsum foot acute pain and swelling of the left foot COMPARISON: None TECHNIQUE: 3 views of the left foot FINDINGS: Mild hallux valgus. Extension of the metatarsophalangeal joints. Moderate-sized calcaneal enthesophytes. No acute fracture, dislocation, osseous erosion or opaque foreign body identified. Mild soft tissue swelling of the forefoot. Distal fifth metatarsal cortical thickening suggestive of a healed fracture deformity. IMPRESSION: No acute osseous abnormality. Electronically signed by: Bobby Marinelli M.D. 12/20/2023 4:42 PM PG Care Time/CCT Total # of Minutes Spent Total Time Spent with Patient: Total time spent is greater than 50% in coordination of care (as documented) at patient's floor/unit and/or counseling patient: Coding Level of Care Code 76509 SUB INP/OBS CARE 2/35MIN Diagnoses Cellulitis L03.90 Site of cellulitis: unspecified site (1) Cellulitis Site of cellulitis: unspecified site Qualified Code(s): L03.90 - Cellulitis, unspecified
--- NOTE | 2023-12-21 09:40 | Pharmacy Report ---
Pharmacy PK ABX Note - Date of Service December 21, 2023 - Assessment and Plan Assessment 43 year old F receiving vancomycin for treatment of cellulitis. Patient presented with fever, chills and foot infection. Blood cultures pending. Toe culture with pin point growth currently, few GPCs on gram stain. Day # 2 of antimicrobial therapy. Plan Vancomycin * Loading dose: 1500 mg IV x 1 (administered 12/19 @1843) * Maintenance dose: 1000 mg IV every 12 hours * Regimen is predicted to achieve target AUC/EMMANUEL of 400-600 mg/L.hr * Random level ordered for: 12/22/23 @ 1000. Pharmacy will continue to follow and will adjust dose/frequency as necessary. Thank you. Pharmacy has transitioned to AUC monitoring for vancomycin. AUC/EMMANUEL is the preferred PK/PD target and is associated with decreased risk of nephrotoxicity compared to traditional trough targets.
[2023-12-21] MEDS: POLYETHYLENE (MIRALAX) 17 GM PACK PO PRN (11:23)
[2023-12-21] MEDS: KETOROLAC TROMETHAMINE 15 MG/ML VIAL IV PRN (13:06)
[2023-12-21] MEDS: PIPER/TAZO 4.5g in D5W MINI-B 100 ML IV ONE (14:37)
[2023-12-21] MEDS: PIPERACILLIN/TAZOBACTAM 4.5 GM in DEXTROSE 5% MINI-B 100 ML IV SCH (19:46)
--- NOTE | 2023-12-22 07:16 | Orthopedic Consultation ---
Date of Service December 22, 2023 Assessment & Plan (1) Cellulitis of foot, left: 43-year-old female with fairly acute onset of left second toe infection of unclear etiology. Is progressed pretty rapidly but looks to be improving since admission. Based on previous photographs in the reviewed this morning the narendra lulitis seems to be somewhat improved. There is no detectable pus. No signs of bone infection. Plan: There is not appear to be a surgical indication at this point. Cellulitis is treated with IV antibiotics or p.o. antibiotics. If there is an abscess or pus then surgical intervention would be considered. Will follow her daily. Continue elevation. Would recommend she soak this 20 minutes 3 times a day and a one third solution of hydrogen peroxide, Betadine, normal saline. The Hilario wash the battery. Reasonable to consult the wound care nurse for routine wound care. Any orthopedic questions can be directed me at [phone]. (2) Cellulitis of second toe of left foot: History of Present Illness Reason for Consultation: . Left second toe infection. Requesting Physician: . Attending Physician: Eloy Castillo . 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 She says she thinks she got a bug bite on night. Really did not start bothering her till Friday but progressed pretty rapidly. She was in the emergency room by was discharged home and then came back. She is now been admitted. Were consulted for evaluation. She describes no other real complaints. Isolated second toe pain. This just started evening and Friday. Allergies Allergy/AdvReac Type Severity Reaction Status Date / Time hornet venom Allergy Severe Anaphylaxis Unverified 12/20/23 18:13 Home Medications Medication Instructions Recorded Confirmed Type epinephrine 0.3 mg/0.3 mL 0.3 mg (0.3 mL) subcut Q10M PRN 10/28/23 12/20/23 Rx injection syringe anaphylaxis #2 ea sulfamethoxazole 800 1 tab PO BID 7 days #14 tabs 12/19/23 12/20/23 Rx mg-trimethoprim 160 mg tablet (Bactrim DS) clonazepam 0.5 mg tablet 0.5 mg PO HS anxiety 12/20/23 12/20/23 History gabapentin 400 mg capsule 0 mg PO HS 12/20/23 12/20/23 History Past Med/Surg History Problem List Open wound of second toe of left foot (Acute) Cellulitis of foot, left (Acute) Cellulitis of second toe of left foot (Acute) Toe infection (Acute) Cellulitis (Acute) Hx of herpes genitalis Hx of cold sores Anaphylactic reaction to wasp sting to wasps and red ants Alcohol abuse (Acute) History of alcohol abuse (Acute) Hx of drug abuse Hx drug and alcohol abuse. Has been free from drugs and alcohol since May 2021. Dyspnea Arthritis Somatic dysfunction of pelvic region Somatic dysfunction of lumbar region Somatic dysfunction of thoracic region Somatic dysfunction of cervical region Somatic dysfunction of rib Chest pain Lightheadedness Anxiety (Acute) Medical History Withdrawal syndrome Benzodiazepine abuse Intentional overdose Surgical History History of oral surgery History of D&C Family History Sister Breast cancer Denies family history of Ovarian cancer Prostate cancer Myocardial infarction Colorectal cancer Social History Smoking Status: Never smoker Age Started Using Tobacco: 41; Age Quit Using Tobacco: 42; Cigarettes Per Day: 20; Second Hand Exposure: No; Do You Dip or Chew Tobacco: No; Hx Alcohol Use: No Hx Substance Use: Yes Last Used Substance: Days (ago) Last Used Substance Other:: 2 Substance Use Type Other:: Benzodiazepines Preferred Language: Serbian Communication Ability: Effective Electronic Lab Technician Required: No Beliefs That Will Affect Care: None marital status: Current Living Situation: Alone Current Living Situation Comment: Lives at home alone current occupational status: unemployed How many Children do You have: 0 Feels Safe at Home: Yes Safety Concerns: Feels Safe At This Time Childhood Exposure to Second-Hand Smoke: No Diet: regular caffeine: Yes Dental Care, Regularly: No Physical Activity Frequency: Daily Seatbelt Use: always Sunscreen Use: Yes Assistive Devices: None Review of Systems All systems reviewed & are unremarkable except as noted in HPI & below. Physical Exam . Physical examination left foot reveals some mild forefoot swelling. Is got obvious diffuse swelling of her second toe with some blistering which is ruptured on the dorsal side. Is kind of fusiform swelling. There is no pus. I will detect any abscess. She is neurologically intact. Results & Data Results & Data Laboratory Results . Diagnostic Findings . X-rays of the left foot were reviewed. Shows no signs of bone destruction. Some mild forefoot swelling. PG Care Time/CCT Total # of Minutes Spent Total Time Spent with Patient: Total time spent is greater than 50% in coordination of care (as documented) at patient's floor/unit and/or counseling patient: Coding Level of Care Code 36611 IN/OBS CONSULT LVL 3,45M Diagnoses Cellulitis of foot, left L03.116 Cellulitis of second toe of left foot L03.032
[2023-12-22 10:17] LABS: Hematocrit (blood only) 38.4 % (37.0-47.0); Hemoglobin 12.9 g/dl (12.0-16.0); Mean Corpuscular Hemoglobin 31.3 pg (25.0-34.0); Mean Corpuscular Hgb Conc 33.6 g/dL (32.0-36.0); Mean Corpuscular Volume 93.2 fL (80.0-100.0); Mean Platelet Volume 10.2 fL (9.4-12.4); Platelet Count 191 K/uL (130-400); RDW Coefficient of Variation 12.7 % (11.5-14.5); RDW Standard Deviation 43.7 fL (36.4-46.3); Red Blood Count 4.12 M/uL (4.20-5.40)
[2023-12-22 10:35] LABS: BUN Creatinine Ratio 10.6 (10-20); Calcium 8.6 mg/dl (8.6-10.3); Creatinine Clr Calc Pharmacy 88.3 ml/min; Est GFR (African American) 96.6 ml/min; Est GFR (Non-African American) 83.3 ml/min; Potassium 4.2 mmol/L (3.5-5.1)
--- NOTE | 2023-12-22 10:51 | Pharmacy Report ---
Pharmacy PK ABX Note - Date of Service December 22, 2023 - Assessment and Plan Assessment 12/21: * Random vancomycin level came back at 11.7 mcg/ml - current vancomycin dosing expected to achieve goal AUC/EMMANUEL 400-600 therefore will continue current regimen 12/20: * 43 year old F receiving vancomycin for treatment of cellulitis. Patient presented with fever, chills and foot infection. Blood cultures pending. Toe culture with pin point growth currently, few GPCs on gram stain. * Day # 2 of antimicrobial therapy. Plan Vancomycin * Continue vancomycin 1000 mg iv q 12 hours Pharmacy will continue to follow and will adjust dose/frequency as necessary. J Luis anderson. Pharmacy has transitioned to AUC monitoring for vancomycin. AUC/EMMANUEL is the preferred PK/PD target and is associated with decreased risk of nephrotoxicity compared to traditional trough targets.
[2023-12-22] MEDS: valACYclovir HCL 500 MG TABLET PO ONE ×2 (13:19→21:57)
[2023-12-22] MEDS: DOCUSATE SODIUM 100 MG CAP PO SCH (13:20)
--- NOTE | 2023-12-22 15:07 | Hospitalist Progress Note ---
Date of Service December 22, 2023 Assessment & Plan (1) Cellulitis: Plan: Patient originally presented to the ED on 12/19 for evaluation of left second toe. She was diagnosed with cellulitis and she was discharged home on Keflex. Patient then presented back to the ER in the evening of 12/19 with complaints of infection worsening. -Foot xray: no acute osseous abnormality -Wound culture prelim results from 12/19 showing gram positive cocci -Patient placed on vancomycin q12h and IV ZOsyn -blood cultures: no growth 24 hours -Consulted ortho - no surgical management - soak with hydrogen peroxide/betadine/normal saline solution TID -Consulted wound nurse -Continue to elevate extremity AM CBC and BMP (2) Hx of cold sores: Plan: Patient feels like oral cold sore coming on 2g valtrex BID x 2 doses Plan VTE Prophylaxis - low risk Dispo: continued inpatient stay, hopeful for discharge in the next 24-48 hours Admission and Anticipated Discharge Date Admission Date: December 20, 2023 Supervising Physician Co-Signing Physician Notes PA Supervision Note: I did not personally see or examine the patient today, but I verified all torres points of ARTHUR Castañeda's assessment and plan with the following exceptions/additions: None Subjective Patient seen ambulating in the room. Pain in her toe is improving. feels like she is getting a cold sore and requesting valtrex Review of Systems Review of Systems: All systems reviewed & are unremarkable except as noted in Subjective Physical Exam Physical Exam: General: NAD, VS as above Resp: normal respiratory effort, lungs clear to auscultation CV: RRR, no murmur, Extremities: Moves all extremities, cellulitis on foot improving, with central ulcerative lesion. see picture in chart Neuro: A&O x3, Results & Data Results & Data Vital Signs (Past 12 Hours) Vital Signs Temp Pulse Resp BP Pulse Ox O2 Del Method 12/22/23 14:35 36.7 C 80 17 116/72 95 Room Air 12/22/23 08:00 Room Air 12/22/23 07:14 36.8 C 76 16 120/77 97 Room Air Laboratory Results CBC and chemistry reviewed PG Care Time/CCT Total # of Minutes Spent Total Time Spent with Patient: Total time spent is greater than 50% in coordination of care (as documented) at patient's floor/unit and/or counseling patient: Coding Level of Care Code 99429 SUB INP/OBS CARE MIN Diagnoses Cellulitis L03.90 Site of cellulitis: unspecified site Hx of cold sores Z86.19 (1) Cellulitis Site of cellulitis: unspecified site Qualified Code(s): L03.90 - Cellulitis, unspecified
[2023-12-23 06:41] LABS: Hematocrit (blood only) 37.2 % (37.0-47.0); Hemoglobin 12.6 g/dl (12.0-16.0); Mean Corpuscular Hemoglobin 31.7 pg (25.0-34.0); Mean Corpuscular Hgb Conc 33.9 g/dL (32.0-36.0); Mean Corpuscular Volume 93.5 fL (80.0-100.0); Mean Platelet Volume 10.2 fL (9.4-12.4); Platelet Count 206 K/uL (130-400); RDW Coefficient of Variation 12.4 % (11.5-14.5); RDW Standard Deviation 42.8 fL (36.4-46.3); Red Blood Count 3.98 M/uL (4.20-5.40); White Blood Count 4.34 K/ul (4.8-10.8)
[2023-12-23 06:59] LABS: BUN Creatinine Ratio 14.4 (10-20); Calcium 8.4 mg/dl (8.6-10.3); Creatinine Clr Calc Pharmacy 83.4 ml/min; Est GFR (African American) 90.1 ml/min; Est GFR (Non-African American) 77.8 ml/min; Potassium 4.3 mmol/L (3.5-5.1)
--- NOTE | 2023-12-23 11:13 | Orthopedic Progress Note ---
Date of Service December 23, 2023 Assessment & Plan (1) Open wound of second toe of left foot: - No urgent surgical intervention at this time. She has a stable white count and no worsening of her symptoms. - Dr. Jimenez also evaluated the patient this morning. I personally spoke with nursing staff today as well as the wound care nurse about ortho recommendations of TID soaks with 1/3 Betadine, 1/3 peroxide, 1/3 saline. It can then be covered with the Aquacel dressing after the soaks. Order will be changed by wound care nurse. We appreciate the assistance with inpatient wound care and wound care follow-up. I, as well as Dr. Jimenez, informed the patient of the plan. - Continue ABX as per hospitalist. - Ortho will follow daily. Please reach out with any questions or concerns. (2) Cellulitis of foot, left: Subjective CC: left 2nd toe cellulitis Patient is a 43 year old male who is being seen today for an interval check of her left 2nd toe cellulitis. She was seen by Dr. Jimenez yesterday where it was recommended to begin TID soaks of the left foot in Saline, Peroxide and Betadine as he recommended no urgent surgical intervention at that time. A wound care consult was placed yesterday as well to help with these soaks. The patient states that she has not been having the soaks done but was instructed to use saline, a silver dressing and then a protective dressing without soaks by wound care. She feels as if the pain is improving, but the swelling is persistent. She is on vancomycin. She denies any worsening of her left foot pain and swelling. She denies any fever,chills, etc. Review of Systems All systems reviewed & are unremarkable except as noted in HPI & below. Physical Exam General: alert and oriented. In no acute distress. Left foot: She does have soft tissue swelling from her midfoot down to her toes. Regarding her left second toe, the dressing was removed. The wound is on the dorsum of the toe below the PIP joint. The skin surrounding the wound looks macerated. Some erythema noted in the 2nd toe going into the foot. There is some saturation on the silver dressing that was placed. No active drainage at my visit. Sensation intact. Distal pulses palpated. She has good ROM of the toes and ankle. Results & Data Results & Data Laboratory Results . Abnormal lab results 12/23/23 Range/Units 06:07 WBC 4.34 L (4.8-10.8) K/ul RBC 3.98 L (4.20-5.40) M/uL Chloride 109 H (98-107) mmol/L Glucose 107 H (70-99(Fasting)) mg/dl Calcium 8.4 L (8.6-10.3) mg/dl Diagnostic Findings . PG Care Time/CCT Total # of Minutes Spent Total Time Spent with Patient: Total time spent is greater than 50% in coordination of care (as documented) at patient's floor/unit and/or counseling patient: Coding Level of Care Code 62154 SUB INP/OBS CARE 2/35MIN Diagnoses Open wound of second toe of left foot S91.105A Encounter type: initial encounter Cellulitis of foot, left L03.116 (1) Open wound of second toe of left foot Encounter type: initial encounter Qualified Code(s): S91.105A - Unspecified open wound of left lesser toe(s) without damage to nail, initial encounter
--- NOTE | 2023-12-23 15:00 | Hospitalist Progress Note ---
Date of Service December 23, 2023 Assessment & Plan (1) Cellulitis: Plan: Patient originally presented to the ED on 12/19 for evaluation of left second toe. She was diagnosed with cellulitis and she was discharged home on Keflex. Patient then presented back to the ER in the evening of 12/19 with complaints of infection worsening. -Foot xray: no acute osseous abnormality -Wound culture prelim results from 12/19 showing gram positive cocci -Patient placed on vancomycin q12h and IV ZOsyn - de-escalate to vancomycin and ceftriaxone 12/22 -blood cultures: no growth 48 hours -Consulted ortho - no surgical management - soak with hydrogen peroxide/betadine/normal saline solution TID - communication order placed so these can be completed -Consulted wound nurse -Continue to elevate extremity (2) Hx of cold sores: Plan: Patient feels like oral cold sore coming on 2g valtrex BID x 2 doses area improving Plan VTE Prophylaxis - low risk Dispo: continued inpatient stay, hopeful for discharge in the next 24-48 hours Admission and Anticipated Discharge Date Admission Date: December 22, 2023 Supervising Physician Co-Signing Physician Notes ARTHUR Supervision Note: I did not personally see or examine the patient today, but I verified all torres points of ARTHUR Castañeda's assessment and plan with the following exceptions/additions: None Subjective patient seen earlier this afternoon, resting in bed. States she has been able to ambulate in the halls and the pain in her foot is less. We discussed the [facility] wound care program, she tells me how she was stung by a bee in her right arm that caused a similar lesion in her right ankle? With similar blisters. States she was seen by her PCP for this and was given antibiotics but she never took them and resolved on its own Discussing risk factors states she has an alligator and rats in the home as pets, no dogs or cats. Pets have not been been around the wounds. 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 Review of Systems Review of Systems: All systems reviewed & are unremarkable except as noted in Subjective Physical Exam Physical Exam: General: NAD, VS as above Resp: normal respiratory effort, lungs clear to auscultation CV: RRR, no murmur, Extremities: Moves all extremities, cellulitis on foot improving, with central ulcerative lesion similar to yesterday Neuro: A&O x3, Results & Data Results & Data Vital Signs (Past 12 Hours) Vital Signs Temp Pulse Resp BP Pulse Ox O2 Del Method 12/23/23 07:29 36.7 C 77 16 121/80 96 Room Air Laboratory Results CBC and chemistry reviewed PG Care Time/CCT Total # of Minutes Spent Total Time Spent with Patient: Total time spent is greater than 50% in coordination of care (as documented) at patient's floor/unit and/or counseling patient: Coding Level of Care Code 97496 SUB INP/OBS CARE 2/35MIN Diagnoses Cellulitis L03.90 Site of cellulitis: unspecified site Hx of cold sores Z86.19 (1) Cellulitis Site of cellulitis: unspecified site Qualified Code(s): L03.90 - Cellulitis, unspecified
[2023-12-23] MEDS: cefTRIAXone SODIUM 2,000 MG/50 ML BAG IV SCH (17:55)
[2023-12-24 07:21] LABS: Hematocrit (blood only) 38.6 % (37.0-47.0); Mean Corpuscular Hemoglobin 31.2 pg (25.0-34.0); Mean Corpuscular Hgb Conc 33.7 g/dL (32.0-36.0); Mean Corpuscular Volume 92.6 fL (80.0-100.0); Mean Platelet Volume 10.3 fL (9.4-12.4); Platelet Count 243 K/uL (130-400); RDW Coefficient of Variation 12.5 % (11.5-14.5); RDW Standard Deviation 42.9 fL (36.4-46.3); Red Blood Count 4.17 M/uL (4.20-5.40); White Blood Count 5.02 K/ul (4.8-10.8)
[2023-12-24 07:41] LABS: BUN Creatinine Ratio 11.8 (10-20); Creatinine Clr Calc Pharmacy 98.7 ml/min; Est GFR (African American) 110.6 ml/min; Est GFR (Non-African American) 95.4 ml/min
--- NOTE | 2023-12-24 11:44 | Discharge Summary ---
Discharge Summary Date of Service December 24, 2023 Principal Dx & Hospital Course #1 = Principal Diagnosis (1) Cellulitis: Patient originally presented to the ED on 12/19 for evaluation of left second toe. She was diagnosed with cellulitis and she was discharged home on Keflex. Patient then presented back to the ER in the evening of 12/19 with complaints of infection worsening. -Foot xray: no acute osseous abnormality -Wound culture: normal salo -Patient placed on vancomycin q12h and IV ZOsyn - de-escalate to vancomycin and ceftriaxone 12/22 -Discharged with Ciprofloxacin 500mg twice a day and Augmentin twice a day. For 7 more doses, first dose tonight, 12/23 PM -blood cultures: no growth 48 hours -Consulted ortho - no surgical management - soak with hydrogen peroxide/betadine/normal saline solution TID - -Consulted wound nurse - will follow up outpatient -Continue to elevate extremity (2) Hx of cold sores: Patient feels like oral cold sore coming on 2g valtrex BID x 2 doses area improving Plan VTE Prophylaxis - low risk Dispo:Discharged home today, with wound care and primary care follow-up Notes For Next Care Provider Admitted after presumed spider bite, with worsening cellulitis. Improving with wound care and IV antibiotics. Discharged with ciprofloxacin and Augmentin. Blood cultures pending, negative at 48 hours Wound culture pending at discharge but preliminary reports were mixed skin salo Provided with work note to be off work as she stands and has to wear closed toed shoes until PCP follow-up Medication Changes From Visit Ciprofloxacin 500mg twice a day and Augmentin twice a day. For 7 more doses, first dose tonight, 12/23 PM Admission HPI Per Admitting Provider Angeles Woo is a 43 year old female who presents to the ER with fever, chills, foot infection. Started on - she thinks possible a bug bite. Came to ER last night and prescribed Keflex. Returned this morning and given ceftriaxone in the ER. Despite this erythema got much worse throughout the day despite not walking on it or leaving it down. Prior alcohol abuse but not currently and issue - very occasional use only. No prior or current IVDU. Non-smoker. Discharge Exam General: NAD, VS as above Resp: normal respiratory effort, lungs clear to auscultation CV: RRR, no murmur, Extremities: Moves all extremities, cellulitis on foot improving, with central ulcerative lesion similar to yesterday surrounding above edema has decreased Neuro: A&O x3, Updated Medication List Medication Instructions Recorded Confirmed Type epinephrine 0.3 mg/0.3 mL 0.3 mg (0.3 mL) subcut Q10M PRN 10/28/23 12/20/23 Rx injection syringe anaphylaxis #2 ea clonazepam 0.5 mg tablet 0.5 mg PO HS anxiety 12/20/23 12/20/23 History gabapentin 400 mg capsule 0 mg PO HS 12/20/23 12/20/23 History amoxicillin 875 mg-potassium 1 tab PO BID #7 tabs 12/24/23 Rx clavulanate 125 mg tablet ciprofloxacin HCl 500 mg tablet 500 mg PO BID #7 tabs 12/24/23 Rx (Cipro) Hospital Stay Data Consultations 12/20/23 17:20 ED Decision to Admit Stat 12/21/23 10:10 Consult Orthopedic Surgery Routine Diagnostic Imagining Performed Foot X-Ray 12/20/23 16:24 XR foot LT min 3V routine HISTORY: 43 years-old Female infection base 2nd toe onto dorsum foot acute pain and swelling of the left foot COMPARISON: None TECHNIQUE: 3 views of the left foot FINDINGS: Mild hallux valgus. Extension of the metatarsophalangeal joints. Moderate-sized calcaneal enthesophytes. No acute fracture, dislocation, osseous erosion or opaque foreign body identified. Mild soft tissue swelling of the forefoot. Distal fifth metatarsal cortical thickening suggestive of a healed fracture deformity. IMPRESSION: No acute osseous abnormality. ACT 112: Negative or not required by law. The above report was generated using voice recognition software. It may contain grammatical, syntax or spelling errors. Electronically signed by: Bobby Marinelli M.D. 12/20/2023 4:42 PM Pending Results Patient Have Any Pending Studies at Discharge: Yes (Blood cultures. ) Discharge Instructions Given to Patient (Per Discharging Provider) Ms. Woo, You were hopsitalized after having a possible insect bite resulting in cellulitis. You were seen by orthopedics and the wound care nurse. We have treated this with wound care and IV antibiotics. You will be discharged with two antibiotics and continued wound care. You will need to be off work to keep this wound clean and dry and out of shoes. You work restriction will be until your primary care appointment on 12/30, if further restrictions are needed that can be provided by your PCP. Your blood cultures are negative at 48 hours, they take 5 days to get the final results. I suspect that these will continue to be negative but if they were to turn positive you will be notified. You can also check your patient portal. Can continue tylenol for pain as needed. Recommendations: * Keep area clean and dry * Wound soaks with 1/3 Betadine, 1/3 hydrogen peroxide and 1/3 saline and pat dry. Apply Aquacel Ag and cover with optifoam or gauze. Continue this 3 times a day. * The Betadine and hydrogen peroxide can be purchased over the counter * Ciprofloxacin 500mg twice a day and Augmentin twice a day. For 7 more doses, first dose tonight, 12/23 PM * Wound care follow up - 12/31 * PCP follow up 12/30 * Please discard prior antibiotics given (bactrim) Activity: You can do normal everyday activities as your body allows. Take rest breaks if you feel tired. Do not overexert. Stop activity if you have pain, shortness of breath or feel dizzy. Follow-up appointments: Make an appointment with your primary care physician within one week of discharge. A copy of this summary will be sent to them. Every time you see your primary care physician, or any other doctor, bring your medication list, and a list of questions. CONTACT YOUR PRIMARY CARE PROVIDER if you experience any of the following: Shortness of breath or difficulty breathing Fevers or chills Feeling tired with normal activity or experiencing dizziness or fainting Difficulty following your treatment plan, or difficulty taking medications CALL 911 OR GO TO THE EMERGENCY DEPARTMENT if you experience any of the following: Severe abdominal pain or nausea/vomiting Severe chest pain, or chest pain that radiates (moves) to your jaw or arm Sudden, severe shortness of breath or difficulty breathing Thank you for allowing us to participate in your care. Total Time Total Time Spent Total Time Spent (In Minutes): Time spend day of discharge 33 minutes including direct patient care, medication reconciliation, documentation, review of labs and images, and coordination of care. Supervising Physician Co-Signing Physician Notes ARTHUR Supervision Note: I personally saw and examined the patient. I verified all torres points and agree with ARTHUR Castañeda with the following exceptions and/or additions: S-patient feeling better and wound and cellulitis of the foot improving. Denies chest pains or shortness of breath, no nausea or vomiting, no diarrhea O- Vitals reviewed Gen: AAOx3, NAD HEENT: Anicteric sclerae, EOMI CV: RRR no mgr nl S1S2 Pulm: CTAB no wcr Ext: No edema, 2+ DP pulses Skin: Left foot with second toe edema, fluctuance, open draining 1 cm wound on dorsal surface proximal phalanx, minimal surrounding erythema Neuro: Full strength throughout A/G-[id number]-old female here with left toe/foot wound and cellulitis. She does have some exotic animals that do harbor Pseudomonas in her home. Discharged home with presumed Pseudomonas coverage with Cipro and Augmentin for staph and strep. No history prior of MRSA. Follow-up on wound culture results after discharge but preliminary report is mixed skin salo as it was a surface culture. Patient otherwise doing well and has follow-up with orthopedics and wound care clinic as well as PCP Coding Level of Care Code 08294 INP/OBS DISCH >30 MIN Diagnoses Cellulitis L03.90 Site of cellulitis: unspecified site Hx of cold sores Z86.19
== END 2023-12-24 12:30 | disposition home or self-care (01) | DRG 603 ==
LOC: 3E 15:58 → ED 15:58 → SUATTDRO 17:44 → 3E 21:50

== ENCOUNTER 2024-05-04 18:18 | Observation (INO) ==
--- NOTE | 2024-05-04 18:33 | Emergency Department Note ---
Impression & Plan Alcohol abuse, Alcohol intoxication ED Provider Note NAME: DAGMAR LI AGE: 43 SEX: F : 1980 ARRIVES VIA: Walk-In INFORMANT: Patient, ED PROVIDER(S): Tom Briggs DO CHIEF COMPLAINT: Detox request HPI: The patient is a 43-year-old female who presented to the emergency department for an evaluation and requesting detox. The patient denies having any depression anxiety or suicidal ideation. The patient denies having any fever. She was in our facility recently for similar complaints. She was feeling better and was able to be discharged to home. She was told that if symptoms recurred or she wanted inpatient detox she should come back to the emergency department. The patient has had severe withdrawal in the past. She was in detox last in the spring in [facility]. ROS: See above HPI for pertinent positives & negatives. A total of 10 systems reviewed and were otherwise negative. PAST MEDICAL HISTORY: See Below PAST SURGICAL HISTORY: See Below FAMILY HISTORY: See Below SOCIAL HISTORY: See Below HOME MEDICATIONS: See Below ALLERGIES: See Below VITALS: See Below PHYSICAL EXAMINATION: GENERAL: Patient is awake alert in no acute distress patient is resting comfortably and showing no signs of anxiety EYES: The conjunctivae are injected bilaterally. The pupils are round and reactive. EARS, NOSE, MOUTH AND THROAT: The nose is without any evidence of any deformity. Mucous membranes are moist. Tongue is midline. NECK: The neck is nontender and supple. RESPIRATORY: Normal respiratory effort is noted there is no evidence of wheezing rhonchi or rales CARDIOVASCULAR: Regular rate and rhythm noted there no murmurs rubs or gallops normal S1 normal S2. GASTROINTESTINAL: The abdomen is soft. Abdomen is nontender. MUSCULOSKELETAL/EXTREMITIES: There is no evidence of gross deformity full range of motion is noted in the hips and shoulders. SKIN: There is no obvious evidence of any rash. There are no petechiae, pallor or cyanosis noted. NEUROLOGIC: Patient is awake alert and oriented x3 strength is symmetric patellar reflexes are 2+ bilaterally MEDICAL DECISION MAKING: The patient is a 43-year-old female who presented to the emergency department for an evaluation of alcohol abuse. The patient has a history of chronic alcohol abuse. She has been using alcohol more than usual. She does have periods where she stopped drinking altogether. She was through inpatient detox in the past. She would prefer to stay at our facility for inpatient detox rather than an outpatient center. I discussed patient's laboratory results with her. I did review the patient's visit from earlier today. I discussed her condition with the on-call [facility] hospitalist. They have agreed to evaluate the patient in the emergency department for further management and disposition. Triage Nursing notes reviewed. Prior medical records reviewed Vital Signs: reviewed and remarkable for no significant abnormalities Differential diagnosis: Alcohol intoxication, toxicologic, infection, hypoglycemia, electrolyte abnormalities, cardiac sources, intracerebral event, neurologic, trauma, as well as other pathologies. ER treatment provided: See below Diagnostics interpreted by me: ECG: EKG was obtained in the emergency department. My interpretation is normal sinus rhythm at 97 bpm. There is no ectopy. There is no acute ST segment abnormalities noted. This was compared to a tracing from January 09, 2023. No changes were noted. Cardiac Monitoring: An order was placed for continuous cardiac monitoring. The monitor shows a rate of 88 bpm with sinus rhythm. Laboratory studies: As stated above and show below. Imaging studies: See below. Radiographic imaging was reviewed by myself Consultation(s): I discussed this case with Dr. Jimenez who is on-call for the [facility] hospitalist group. Past Med/Surg History Problem List (Updated 05/04/24 @ 20:10 by Tom Briggs DO) Dehydration (Acute) Alcohol intoxication (Acute) Alcohol use disorder (Acute) Dense breast tissue Lump of right breast Right knee pain Hx of herpes genitalis Anaphylactic reaction to wasp sting to wasps and red ants Alcohol abuse (Acute) History of alcohol abuse (Acute) Hx of drug abuse Hx drug and alcohol abuse. Has been free from drugs and alcohol since May 2021. Dyspnea Arthritis Chest pain Lightheadedness Anxiety (Acute) Medical History Open wound of second toe of left foot Cellulitis of second toe of left foot Hx of cold sores Somatic dysfunction of pelvic region Somatic dysfunction of lumbar region Somatic dysfunction of thoracic region Somatic dysfunction of cervical region Somatic dysfunction of rib Withdrawal syndrome Benzodiazepine abuse Intentional overdose Surgical History History of oral surgery History of D&C Family History Sister Breast cancer Denies family history of Ovarian cancer Prostate cancer Myocardial infarction Colorectal cancer Social History Smoking Status: Never smoker Age Started Using Tobacco: 41; Age Quit Using Tobacco: 42; Cigarettes Per Day: 20; Second Hand Exposure: No; Do You Dip or Chew Tobacco: No; Hx Alcohol Use: No Hx Substance Use: Yes Last Used Substance: Days (ago) Last Used Substance Other:: 2 Substance Use Type Other:: Benzodiazepines Preferred Language: Kazakh Communication Ability: Effective Shipping & Receiving Lead Required: No Beliefs That Will Affect Care: None marital status: Current Living Situation: Alone Current Living Situation Comment: Lives at home alone current occupational status: employed and unemployed 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 How many Children do You have: 0 Feels Safe at Home: Yes Childhood Exposure to Second-Hand Smoke: No Diet: regular caffeine: Yes Dental Care, Regularly: No Physical Activity Frequency: Daily Seatbelt Use: always Sunscreen Use: Yes Assistive Devices: None Allergies Allergies Allergy/AdvReac Type Severity Reaction Status Date / Time hornet venom Allergy Severe Anaphylaxis Unverified 02/16/24 13:06 Home Meds Home Medications Medication Instructions Recorded Confirmed clonazepam 0.5 mg tablet 0.5 mg PO DAILY PRN anxiety/sleep 05/04/24 05/04/24 naltrexone 50 mg tablet 50 mg PO DAILY 05/04/24 05/04/24 ondansetron HCl 4 mg tablet 4 mg PO DAILY PRN Nausea 05/04/24 05/04/24 Previous Rx's Medication Instructions Recorded epinephrine 0.3 mg/0.3 mL 0.3 mg (0.3 mL) subcut Q10M PRN 10/28/23 injection syringe anaphylaxis #2 ea naproxen 500 mg tablet 500 mg PO BID PRN pain #180 tabs 02/16/24 Results & Data (ED) Vital Signs Vital Signs - 24 hr 05/04/24 18:21 05/04/24 18:52 05/04/24 18:56 Temperature 36.8 C Temperature Source Temporal Artery Scan Pulse Rate 94 H Pulse Rate [Apical] Pulse Rhythm Regular Pulse Strength Normal Respiratory Rate 20 Respiratory Effort / Characteristics Respiratory Depth Respiratory Pattern Blood Pressure 126/86 Blood Pressure [Right Arm] Blood Pressure Mean 99 Blood Pressure Mean [Right Arm] Blood Pressure Position [Right Arm] Pulse Oximetry 96 95 Oxygen Delivery Method Room Air Room Air Sepsis Recent Fever Within 48 Hours No Sepsis New/Unexplained Change in Mental Status N/A Sepsis Action Taken by Nursing No Action Required 05/04/24 18:56 Temperature Temperature Source Pulse Rate Pulse Rate [Apical] 88 Pulse Rhythm Pulse Strength Respiratory Rate 25 H Respiratory Effort / Characteristics Non-Labored Respiratory Depth Normal Respiratory Pattern Regular Blood Pressure Blood Pressure [Right Arm] 112/74 Blood Pressure Mean Blood Pressure Mean [Right Arm] 86 Blood Pressure Position [Right Arm] Semi-fowlers Pulse Oximetry 95 Oxygen Delivery Method Room Air Sepsis Recent Fever Within 48 Hours Sepsis New/Unexplained Change in Mental Status Sepsis Action Taken by Retirement Medications Current Medication List: was personally reviewed by me Laboratory Data Attestation: I reviewed the patient's lab results. 05/04/24 18:44 05/04/24 18:44 Lab Results 05/04/24 05/04/24 Range/Units 18:44 19:07 WBC 5.75 (4.8-10.8) K/ul RBC 4.52 (4.20-5.40) M/uL Hgb 14.2 (12.0-16.0) g/dl Hct 41.4 (37.0-47.0) % MCV 91.6 (80.0-100.0) fL MCH 31.4 (25.0-34.0) pg MCHC 34.3 (32.0-36.0) g/dL RDW Std Deviation 42.3 (36.4-46.3) fL RDW Coeff of Zahraa 12.7 (11.5-14.5) % Plt Count 236 (130-400) K/uL MPV 10.0 (9.4-12.4) fL Immature Gran % (Auto) 0.2 % Neut % (Auto) 48.6 % Lymph % (Auto) 39.0 % [place] % (Auto) 4.9 % Eos % (Auto) 6.8 % Baso % (Auto) 0.5 % Neut # (Auto) 2.80 (1.40-6.50) K/uL Lymph # (Auto) 2.24 (1.20-3.40) K/uL [place] # (Auto) 0.28 (0.11-0.59) K/uL Eos # (Auto) 0.39 (0.00-0.50) K/uL Baso # (Auto) 0.03 (0.00-0.20) K/uL Immature Gran # (Auto) 0.01 (0.01-0.20) K/uL Sodium 140 (136-145) mmol/L Potassium 4.0 (3.5-5.1) mmol/L Chloride 104 (98-107) mmol/L Carbon Dioxide 26 (21-32) mmol/L Anion Gap 10 (3-11) BUN 9 (6-23) mg/dl Creatinine 0.75 (0.6-1.2) mg/dl Est Cr Clr Drug Dosing 96.6 ml/min eGFR 100.62 BUN/Creatinine Ratio 12.0 (10-20) Glucose 105 H (70-99(Fasting)) mg/dl Calcium 9.3 (8.6-10.3) mg/dl Magnesium 1.9 (1.7-2.4) mg/dl Total Bilirubin 0.3 (0.2-1.0) mg/dl AST 19 (13-39) U/L ALT 21 (7-52) U/L Alkaline Phosphatase 36 (34-104) U/L Total Protein 7.3 (6.0-8.3) gm/dl Albumin 4.7 (3.4-5.0) gm/dl Globulin 2.6 (2.5-4.0) gm/dl Albumin/Globulin Ratio 1.8 (0.9-2) TSH 0.570 (0.300-4.500) uIu/ml HCG, Qual Negative (Negative) Urine Color Yellow Urine Appearance Clear (Clear) Urine pH 7.5 (4.5-7.5) Ur Specific Reading 1.008 (1.000-1.030) Urine Protein Negative (Negative) Urine Glucose (UA) Negative (Negative) Urine Ketones Negative (Negative) Urine Blood Negative (Negative) Urine Nitrite Negative (Negative) Urine Bilirubin Negative (Negative) Urine Urobilinogen Negative (Negative) Ur Leukocyte Esterase Negative (Negative) Salicylates < 3.0 L (3.0-30) mg/dl Urine Opiates Screen Neg (Neg) Ur Methadone, Qual Neg (Neg) Urine Fentanyl Screen Neg (Neg) Acetaminophen < 3 L (10-30) ug/ml Urine Barbiturates Neg (Neg) Ur Phencyclidine (PCP) Neg (Neg) U Amphetamin/Meth Scrn Neg (Neg) MDMA (Ecstasy) Screen Neg (Neg) U Benzodiazepines Scrn Neg (Neg) Ur Cocaine Metabolite Neg (Neg) U Marijuana (THC) Screen Neg (Neg) Ethyl Alcohol mg/dL 241.4 H (<10.0) mg/dl Discharge Plan Visit Data Chief Complaint: Detox Request Stated Complaint: DETOX ED Provider: Tom Briggs Discharge Problem: Alcohol abuse, Alcohol intoxication Patient Disposition: Being Evaluated by Hospitalist Forms Stand Alone Forms: My [facility], Suicide Prevention Resources Prescriptions Prescriptions: No Action epinephrine 0.3 mg/0.3 mL syringe 0.3 mg subcut Q10M PRN (Reason: anaphylaxis) Qty: 2 2RF Rx Instructions: Blue to jermaine, orange to thigh. Apply to outer thigh, hold for 3 seconds, then go to ED. HAS TO BE GENERIC for 2 doses. naproxen 500 mg tablet 500 mg PO BID PRN (Reason: pain) Qty: 180 3RF naltrexone 50 mg tablet 50 mg PO DAILY ondansetron HCl 4 mg tablet 4 mg PO DAILY PRN (Reason: Nausea) clonazepam 0.5 mg tablet 0.5 mg PO DAILY PRN (Reason: anxiety/sleep) Referrals Referrals: Jair Cui DO [Primary Care Provider] -
[2024-05-04 19:08] LABS: Basophils # (auto) 0.03 K/uL (0.00-0.20); Basophils % (auto) 0.5 %; Eosinophils # (auto) 0.39 K/uL (0.00-0.50); Eosinophils % (auto) 6.8 %; Hematocrit (blood only) 41.4 % (37.0-47.0); Hemoglobin 14.2 g/dl (12.0-16.0); Immature Granulocytes # (auto) 0.01 K/uL (0.01-0.20); Immature Granulocytes % (auto) 0.2 %; Lymphocytes # (auto) 2.24 K/uL (1.20-3.40); Mean Corpuscular Hemoglobin 31.4 pg (25.0-34.0); Mean Corpuscular Hgb Conc 34.3 g/dL (32.0-36.0); Mean Corpuscular Volume 91.6 fL (80.0-100.0); Monocytes # (auto) 0.28 K/uL (0.11-0.59); Monocytes % (auto) 4.9 %; Neutrophils % (auto) 48.6 %; Platelet Count 236 K/uL (130-400); RDW Coefficient of Variation 12.7 % (11.5-14.5); RDW Standard Deviation 42.3 fL (36.4-46.3); Red Blood Count 4.52 M/uL (4.20-5.40); White Blood Count 5.75 K/ul (4.8-10.8)
[2024-05-04 19:18] LABS: Albumin Globulin Ratio 1.8 (0.9-2); Albumin Level 4.7 gm/dl (3.4-5.0); Bilirubin,Total 0.3 mg/dl (0.2-1.0); Calcium 9.3 mg/dl (8.6-10.3); Creatinine Clr Calc Pharmacy 96.6 ml/min; Globulin 2.6 gm/dl (2.5-4.0); Magnesium 1.9 mg/dl (1.7-2.4); Total Protein 7.3 gm/dl (6.0-8.3)
[2024-05-04 19:24] LABS: Acetaminophen < 3 ug/ml (10-30); Salicylate < 3.0 mg/dl (3.0-30)
[2024-05-04 19:26] LABS: Appearance Urine Clear (Clear); Bilirubin Urine Negative (Negative); Blood Urine Negative (Negative); Color Urine Yellow; Glucose Urine UA Negative (Negative); Ketones Urine Negative (Negative); Leukocyte Esterase Urine Negative (Negative); Nitrite Urine Negative (Negative); Protein Urine Negative (Negative); Specific Gravity Urine 1.008 (1.000-1.030); Urobilinogen Urine Negative (Negative); pH Urine 7.5 (4.5-7.5)
[2024-05-04 19:26] LABS: Pregnancy Test, Serum Negative (Negative)
[2024-05-04 19:32] LABS: Thyroid Stimulating Hormone 0.57 uIu/ml (0.300-4.500)
[2024-05-04 20:02] LABS: Amphetamines+Metham, Urine Neg (Neg); Barbiturates, Urine Neg (Neg); Benzodiazepine, Urine Neg (Neg); Cocaine, Urine Neg (Neg); Fentanyl, Urine Neg (Neg); MDMA (Ecstacy), Urine Neg (Neg); Marijuana, Urine Neg (Neg); Methadone, Urine Neg (Neg); Opiate, Urine Neg (Neg); Phencyclidine, Urine Neg (Neg)
[2024-05-04] MEDS: IBUPROFEN 600 MG TAB PO STA (20:18)
--- NOTE | 2024-05-04 20:28 | History & Physical Report ---
Date of Service May 04, 2024 Assessment & Plan (1) Alcohol use disorder: Plan: 43yo female with history of alcohol use disorder presenting with concern for withdrawal. Patient with recent relapse and reports heavy drinking of appx 30 drinks daily over the last 6 days. Last drink prior to arrival - appx 12:00. EtOH [id number] -Admit to PCU -Maintain seizure precautions -Valium 5mg po given now - repeat if needed -AWSS with IV Ativan PRN -Thiamine and Folic Acid PO daily -Continue naltrexone Would consider discontinuing patient's home PRN Clonazepam on discharge. She may benefit from PRN Hydroxyzine for anxiety/sleep History of Present Illness Chief Complaint: alcohol withdrawal Primary Care Provider: Jair Cui DO Angeles Woo is a 43yo female with history of EtOH abuse, prior complicated alcohol withdrawal with seizures presenting with concern for EtOH withdrawal. Patient has been drinking heavily for the last 5 years. She was able to maintain sobriety for three years but unfortunately began drinking again 6 days ago. She reports drinking multiple bottles of wine daily as well as some vodka. She estimates 30 drinks daily for the last 6 days - last drink today around 12:00. Patient reports not feeling well today - nauseated, restless and irritable. She was not able to go to work today due to her symptoms. She was seen in the ER earlier today and was offered admission for medical detox but declined at that time. Patient is involved in AA and has a sponsor and a home group as her support system. She has participated in rehab in the past and has lived in a recovery home as well. Was on Vivitrol in the past but was recently changed to Naltrexone Patient does not wish to go to rehab after this admission. In the ER she is afebrile, HD stable ER Course: Ibuprofen 600mg Valium 5mg Allergies Allergy/AdvReac Type Severity Reaction Status Date / Time hornet venom Allergy Severe Anaphylaxis Unverified 02/16/24 13:06 Home Medications Medication Instructions Recorded Confirmed Type epinephrine 0.3 mg/0.3 mL 0.3 mg (0.3 mL) subcut Q10M PRN 10/28/23 05/04/24 Rx injection syringe anaphylaxis #2 ea naproxen 500 mg tablet 500 mg PO BID PRN pain #180 tabs 02/16/24 05/04/24 Rx clonazepam 0.5 mg tablet 0.5 mg PO DAILY PRN anxiety/sleep 05/04/24 05/04/24 History naltrexone 50 mg tablet 50 mg PO DAILY 05/04/24 05/04/24 History ondansetron HCl 4 mg tablet 4 mg PO DAILY PRN Nausea 05/04/24 05/04/24 History Past Med/Surg History Problem List Dehydration (Acute) Alcohol intoxication (Acute) Alcohol use disorder (Acute) Dense breast tissue Lump of right breast Right knee pain Hx of herpes genitalis Anaphylactic reaction to wasp sting to wasps and red ants Alcohol abuse (Acute) History of alcohol abuse (Acute) Hx of drug abuse Hx drug and alcohol abuse. Has been free from drugs and alcohol since May 2021. Dyspnea Arthritis Chest pain Lightheadedness Anxiety (Acute) Medical History Open wound of second toe of left foot Cellulitis of second toe of left foot Hx of cold sores Somatic dysfunction of pelvic region Somatic dysfunction of lumbar region Somatic dysfunction of thoracic region Somatic dysfunction of cervical region Somatic dysfunction of rib Withdrawal syndrome Benzodiazepine abuse Intentional overdose Surgical History History of oral surgery History of D&C Family History Sister Breast cancer Denies family history of Ovarian cancer Prostate cancer Myocardial infarction Colorectal cancer Social History Smoking Status: Never smoker Age Started Using Tobacco: 41; Age Quit Using Tobacco: 42; Cigarettes Per Day: 20; Second Hand Exposure: No; Do You Dip or Chew Tobacco: No; Hx Alcohol Use: Yes Alcohol type: wine Hx Substance Use: No Preferred Language: Vietnamese Communication Ability: Effective Transportation Program Director Required: No Beliefs That Will Affect Care: None marital status: Current Living Situation: Alone Current Living Situation Comment: Lives at home alone current occupational status: employed and unemployed 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 How many Children do You have: 0 Other Information That Helps Us Care for You: Yes (wants to detox but doesnt want to go to rehab) Feels Safe at Home: Yes Safety Concerns: Feels Safe At This Time Childhood Exposure to Second-Hand Smoke: No Diet: regular caffeine: Yes Dental Care, Regularly: No Physical Activity Frequency: Daily Seatbelt Use: always Sunscreen Use: Yes Assistive Devices: None Review of Systems Review of Systems: All systems reviewed & are unremarkable except as noted in HPI & below Physical Exam Physical Exam: General: patient anxious and tearful during encounter, NAD, no obvious tremors or evidence of withdrawal Skin: warm, dry, intact, no rashes or lesions HEENT: NC/AT, PERRL, EOMI, anicteric sclera, conjunctiva without injection, external ear normal to inspection and nontender, nares patent, moist mucus membranes, dentition intact, no oropharyngeal lesions, neck supple, trachea midline, no LAD, no thyromegaly, no JVD Heart: +S1/S2, regular, no m/r/g Lungs: equal air entry bilaterally, no rales/rhonchi/wheezes Abd: +BS, soft, NT/ND, no masses/organomegaly/ascites Ext: warm, 2+ pulses in UE/LE bilaterally, no clubbing/cyanosis or edema Neuro: nonfocal, patient AA&O x 4, speech intact, no facial droop, moving all extremities on command with equal strength 5/5 Results & Data Results & Data Vital Signs (Past 12 Hours) Vital Signs Temp Pulse Pulse Resp BP BP Pulse Ox 05/04/24 20:20 36.6 C 88 17 107/63 95 05/04/24 18:56 88 25 H 112/74 95 05/04/24 18:56 95 05/04/24 18:52 94 H 05/04/24 18:21 36.8 C 20 126/86 96 O2 Del Method 05/04/24 20:20 Room Air 05/04/24 18:56 Room Air 05/04/24 18:56 Room Air 05/04/24 18:52 05/04/24 18:21 Room Air Laboratory Results Laboratory Results WBC 5.75 K/ul (4.8-10.8) 05/04/24 18:44 RBC 4.52 M/uL (4.20-5.40) 05/04/24 18:44 Hgb 14.2 g/dl (12.0-16.0) 05/04/24 18:44 Hct 41.4 % (37.0-47.0) 05/04/24 18:44 MCV 91.6 fL (80.0-100.0) 05/04/24 18:44 MCH 31.4 pg (25.0-34.0) 05/04/24 18:44 MCHC 34.3 g/dL (32.0-36.0) 05/04/24 18:44 RDW Std Deviation 42.3 fL (36.4-46.3) 05/04/24 18:44 RDW Coeff of Zahraa 12.7 % (11.5-14.5) 05/04/24 18:44 Plt Count 236 K/uL (130-400) 05/04/24 18:44 MPV 10.0 fL (9.4-12.4) 05/04/24 18:44 Immature Gran % (Auto) 0.2 % 05/04/24 18:44 Neut % (Auto) 48.6 % 05/04/24 18:44 Lymph % (Auto) 39.0 % 05/04/24 18:44 Pike % (Auto) 4.9 % 05/04/24 18:44 Eos % (Auto) 6.8 % 05/04/24 18:44 Baso % (Auto) 0.5 % 05/04/24 18:44 Neut # (Auto) 2.80 K/uL (1.40-6.50) 05/04/24 18:44 Lymph # (Auto) 2.24 K/uL (1.20-3.40) 05/04/24 18:44 Pike # (Auto) 0.28 K/uL (0.11-0.59) 05/04/24 18:44 Eos # (Auto) 0.39 K/uL (0.00-0.50) 05/04/24 18:44 Baso # (Auto) 0.03 K/uL (0.00-0.20) 05/04/24 18:44 Immature Gran # (Auto) 0.01 K/uL (0.01-0.20) 05/04/24 18:44 Sodium 140 mmol/L (136-145) 05/04/24 18:44 Potassium 4.0 mmol/L (3.5-5.1) 05/04/24 18:44 Chloride 104 mmol/L (98-107) 05/04/24 18:44 Carbon Dioxide 26 mmol/L (21-32) 05/04/24 18:44 Anion Gap 10 (3-11) 05/04/24 18:44 BUN 9 mg/dl (6-23) 05/04/24 18:44 Creatinine 0.75 mg/dl (0.6-1.2) 05/04/24 18:44 Est Cr Clr Drug Dosing 96.6 ml/min 05/04/24 18:44 eGFR 100.62 05/04/24 18:44 BUN/Creatinine Ratio 12.0 (10-20) 05/04/24 18:44 Glucose 105 mg/dl (70-99(Fasting)) H 05/04/24 18:44 Calcium 9.3 mg/dl (8.6-10.3) 05/04/24 18:44 Magnesium 1.9 mg/dl (1.7-2.4) 05/04/24 18:44 Total Bilirubin 0.3 mg/dl (0.2-1.0) 05/04/24 18:44 AST 19 U/L (13-39) 05/04/24 18:44 ALT 21 U/L (7-52) 05/04/24 18:44 Alkaline Phosphatase 36 U/L (34-104) 05/04/24 18:44 Total Protein 7.3 gm/dl (6.0-8.3) 05/04/24 18:44 Albumin 4.7 gm/dl (3.4-5.0) 05/04/24 18:44 Globulin 2.6 gm/dl (2.5-4.0) 05/04/24 18:44 Albumin/Globulin Ratio 1.8 (0.9-2) 05/04/24 18:44 TSH 0.570 uIu/ml (0.300-4.500) 05/04/24 18:44 HCG, Qual Negative (Negative) 05/04/24 18:44 Urine Color Yellow 05/04/24 19:07 Urine Appearance Clear (Clear) 05/04/24 19:07 Urine pH 7.5 (4.5-7.5) 05/04/24 19:07 Ur Specific [place] 1.008 (1.000-1.030) 05/04/24 19:07 Urine Protein Negative (Negative) 05/04/24 19:07 Urine Glucose (UA) Negative (Negative) 05/04/24 19:07 Urine Ketones Negative (Negative) 05/04/24 19:07 Urine Blood Negative (Negative) 05/04/24 19:07 Urine Nitrite Negative (Negative) 05/04/24 19:07 Urine Bilirubin Negative (Negative) 05/04/24 19:07 Urine Urobilinogen Negative (Negative) 05/04/24 19:07 Ur Leukocyte Esterase Negative (Negative) 05/04/24 19:07 Salicylates < 3.0 mg/dl (3.0-30) L 05/04/24 18:44 Urine Opiates Screen Neg (Neg) 05/04/24 19:07 Ur Methadone, Qual Neg (Neg) 05/04/24 19:07 Urine Fentanyl Screen Neg (Neg) 05/04/24 19:07 Acetaminophen < 3 ug/ml (10-30) L 05/04/24 18:44 Urine Barbiturates Neg (Neg) 05/04/24 19:07 Ur Phencyclidine (PCP) Neg (Neg) 05/04/24 19:07 U Amphetamin/Meth Scrn Neg (Neg) 05/04/24 19:07 MDMA (Ecstasy) Screen Neg (Neg) 05/04/24 19:07 U Benzodiazepines Scrn Neg (Neg) 05/04/24 19:07 Ur Cocaine Metabolite Neg (Neg) 05/04/24 19:07 U Marijuana (THC) Screen Neg (Neg) 05/04/24 19:07 Ethyl Alcohol mg/dL 241.4 mg/dl (<10.0) H 05/04/24 18:44 Code Status & VTE Plan VTE Prophylaxis Plan VTE Prophylaxis will be ordered: Yes PG Care Time/CCT Total # of Minutes Spent Total Time Spent with Patient: Total time spent is greater than 50% in coordination of care (as documented) at patient's floor/unit and/or counseling patient: Coding Level of Care Code 91414 INT INP/OBS CARE 3/75MIN Diagnoses Alcohol use disorder F10.90
[2024-05-04] MEDS: diazePAM 5 MG TABLET PO ONE ×2 (20:34→23:21)
[2024-05-04] MEDS ORDERED: Ativan IV Alcohol Withdrawal--Active Protocol IV PRN (22:00)
[2024-05-04] MEDS ORDERED: LORazepam 2 MG/1 ML VIAL IV PRN ×3 (22:00)
[2024-05-05] MEDS ORDERED: ACETAMINOPHEN 325 MG TAB PO PRN (02:23)
[2024-05-05] MEDS: ACETAMINOPHEN 325 MG TAB ONE (02:35)
[2024-05-05] MEDS: LORazepam 1 MG TAB PO STA (05:28)
[2024-05-05] MEDS: FOLIC ACID 1 MG TAB PO SCH (09:10)
[2024-05-05] MEDS: NALTREXONE HCL 50 MG TAB PO SCH (09:11)
[2024-05-05] MEDS: THIAMINE HCL 100 MG TAB PO SCH (09:11)
[2024-05-05] MEDS ORDERED: GABAPENTIN 1200MG ALCOHOL WITHDRAWAL LOAD PO STA (09:34)
[2024-05-05] MEDS: GABAPENTIN 600 MG TAB PO ONE (10:18)
--- NOTE | 2024-05-05 11:45 | Electrocardiogram Report ---
Test Reason : Blood Pressure : */* mmHG Vent. Rate : 97 BPM Atrial Rate : 97 BPM P-R Int : 148 ms QRS Dur : 90 ms QT Int : 338 ms P-R-T Axes : 50 44 57 degrees QTcB Int : 429 ms Normal sinus rhythm Normal ECG When compared with ECG of 09-Jan-2023 17:26, No significant change was found Confirmed by Janusz Morgan ([id number] on 05/05/2024 11:44:53 AM Referred By: REFERRED SELF Confirmed By: Janusz Morgan
[2024-05-05] MEDS ORDERED: chlordiazePOXIDE ALCOHOL WITHDRAWL 50MG PO STA (11:56)
[2024-05-05] MEDS: ONDANSETRON INJ 2 MG/ML 2 ML VIAL IV PRN (12:28)
[2024-05-05] MEDS: chlordiazePOXIDE HCl 25 MG CAP PO SCH (13:13)
[2024-05-05] MEDS ORDERED: GABAPENTIN 600 MG TAB PO SCH (16:00)
[2024-05-05 16:14] VITALS: RESP 18
--- NOTE | 2024-05-05 17:57 | Hospitalist Progress Note ---
Date of Service May 05, 2024 Assessment & Plan (1) Alcohol withdrawal: Plan: 43 y/o woman with alcohol use disorder admitted with alcohol withdrawal having a lot of anxiety and mild withdrawal symptoms that are very bothersome to her. AWSS has been 0-3 thus far did not improve with gabapentin started po chlordiazepoxide regimen with taper lorazepam PRN AWSS>6 per protocol continue oral naltrexone - discussed with her that going back to vivitrol injections would be francisco since she had trouble with compliance on the oral supplement thiamine, folate AM BMP and mag (2) Benzodiazepine abuse: Plan: history of this noted reviewed PDMP has rx for clonazepam 0.5 mg at HS Admission and Anticipated Discharge Date Admission Date: May 04, 2024 Subjective having a lot of anxiety, mild sweats, auditory hallucination Physical Exam Physical Exam: PHYSICAL EXAMINATION Last 24h vital signs reviewed, see documentation in flowsheet General: comfortable appearing, no distress HEENT: Normocephalic, atraumatic, pupils round and equal, sclerae anicteric, no conjunctival injection, moist mucus membranes Lungs: Normal respiratory effort. Clear to auscultation bilaterally. No RRW Heart: Regular rate and rhythm, no murmurs. No JVD Abdomen: Soft, nontender, nondistended. Bowel sounds present. Extremities: Warm, dry, well-perfused. No extremity edema. Neuro: Alert and oriented x 4, face symmetric, moves 4 extremities well, slightly tremulous Psych: Normal affect and behavior Results & Data Results & Data Vital Signs (Past 12 Hours) Vital Signs Temp Pulse Resp BP Pulse Ox O2 Del Method 05/05/24 16:12 36.8 C 77 18 123/79 93 Room Air 05/05/24 11:09 36.5 C 87 19 123/83 94 Room Air 05/05/24 07:59 36.6 C 86 20 125/94 96 Room Air PG Care Time/CCT Total # of Minutes Spent Total Time Spent with Patient: Total time spent is greater than 50% in coordination of care (as documented) at patient's floor/unit and/or counseling patient: Coding Level of Care Code 68784 SUB INP/OBS CARE 2/35MIN Diagnoses Alcohol withdrawal F10.939 Benzodiazepine abuse F13.10
[2024-05-05] MEDS: LORazepam 1 MG TAB PO PRN (20:12)
[2024-05-06] MEDS ORDERED: GABAPENTIN 600 MG TAB PO SCH (06:00)
[2024-05-06] MEDS: hydrOXYzine HCl 25 MG TAB PO ONE (06:17)
[2024-05-06 07:03] LABS: BUN Creatinine Ratio 15.7 (10-20); Calcium 8.9 mg/dl (8.6-10.3); Creatinine Clr Calc Pharmacy 107.2 ml/min; Magnesium 1.9 mg/dl (1.7-2.4); Potassium 3.8 mmol/L (3.5-5.1)
[2024-05-06 07:43] VITALS: PULSE 82; TEMP 98.2; O2SAT 95
[2024-05-06 11:17] VITALS: BP 126/81
[2024-05-06] MEDS ORDERED: chlordiazePOXIDE HCl 25 MG CAP PO SCH (14:00)
--- NOTE | 2024-05-06 17:34 | Discharge Summary ---
Discharge Summary Date of Service May 06, 2024 Principal Dx & Hospital Course #1 = Principal Diagnosis (1) Alcohol withdrawal: 43 y/o woman with alcohol use disorder admitted with alcohol withdrawal having a lot of anxiety and mild withdrawal symptoms that are very bothersome to her. AWSS has been 0-3 thus far, has not had severe withdrawal did not improve with gabapentin started po chlordiazepoxide regimen with taper to good effect - she declined placement in alcohol rehab - she wishes to discharge home today I think that is reasonable with chlordiazepoxide taper, discussed return precautions to the ED and also not to mix this medication with alcohol or drive or operate heavy machinery while taking benzodiazepines continue oral naltrexone - discussed with her that going back to vivitrol injections would be francisco since she had trouble with compliance on the oral. her primary care is already ordered the Vivitrol for her supplement thiamine, folate (2) Benzodiazepine abuse: history of this noted reviewed PDMP has rx for clonazepam 0.5 mg at HS, no other fills Notes For Next Care Provider I recommended to her going back to her AA meetings/sponsor and resuming Vivitrol injections Medication Changes From Visit chlordiazepoxide taper Admission HPI Per Admitting Provider Angeles Woo is a 43yo female with history of EtOH abuse, prior complicated alcohol withdrawal with seizures presenting with concern for EtOH withdrawal. Patient has been drinking heavily for the last 5 years. She was able to maintain sobriety for three years but unfortunately began drinking again 6 days ago. She reports drinking multiple bottles of wine daily as well as some vodka. She estimates 30 drinks daily for the last 6 days - last drink today around 12:00. Patient reports not feeling well today - nauseated, restless and irritable. She was not able to go to work today due to her symptoms. She was seen in the ER earlier today and was offered admission for medical detox but declined at that time. Patient is involved in AA and has a sponsor and a home group as her support system. She has participated in rehab in the past and has lived in a recovery home as well. Was on Vivitrol in the past but was recently changed to Naltrexone Patient does not wish to go to rehab after this admission. In the ER she is afebrile, HD stable ER Course: Ibuprofen 600mg Valium 5mg Discharge Exam PHYSICAL EXAMINATION Last 24h vital signs reviewed, see documentation in flowsheet General: comfortable appearing, no distress, sitting up awake in bed HEENT: Normocephalic, atraumatic, pupils round and equal, sclerae anicteric, no conjunctival injection, moist mucus membranes Lungs: Normal respiratory effort. Heart: Abdomen: nondistended. Extremities: Warm, dry, well-perfused. No extremity edema. no sweating Neuro: Alert and oriented x 4, face symmetric, moves 4 extremities well, no tremor Psych: Normal affect and behavior Discharge Plan Discharge Items Patient Disposition: Home - Self-Care Reason For Visit: ETOH WITHDRAWAL Discharge Diagnosis: alcohol withdrawal Activity: Resume your previous activity Non-emergency contact: Primary Care Provider Call non-emergency contact if: you have any medication questions and your symptoms worsen Follow-up/Referrals: Jair Cui DO [Primary Care Provider] - 05/10/24 1:30 pm (Hospital follow up scheduled for May 10, 2024 at 1:30pm) Diet: Regular Addtl Attending Provider Instructions: Continue the chlordiazepoxide taper Don't mix the chloridazepoxide with alcohol, don't drive or operate heavy machinery while taking this medication because it can cause sedation/impairment. Return to the ER if you have significantly worsening withdrawal symptoms - for example, severe tremor, sweats, confusion, nausea and vomiting etc You will probably continue to experience the milder withdrawal symptoms for a few days. anxiety, headache, mild tremor/sweats for example Stay hydrated and avoid alcohol I strongly recommend resuming the vivitrol injections as soon as possible and an alcohol rehab program. Inpatient or outpatient in-person rehab is the strongest. AA type meetings aren't for everyone, however, there are online and andres based programs you might consider. Pending Studies at Discharge: No Stand-Alone Forms: My [facility] [employer], Work/School Release, Smoking Cessation Medications and DC Order Prescriptions: New thiamine HCl (vitamin B1) 100 mg Tablet 100 mg PO QAM Qty: 0 0RF Rx Instructions: buy over the counter folic acid 1 mg Tablet 1 mg PO QAM Qty: 0 0RF Rx Instructions: buy over the counter chlordiazepoxide HCl 25 mg capsule See Taper PO BID Qty: 12 0RF Taper: Taper, Blank 50 mg Q8H for 1 Day 25 mg Q8H for 1 Day 25 mg EVERY TWELVE HOURS for 1 Day 25 mg DAILY for 1 Day Continued epinephrine 0.3 mg/0.3 mL syringe 0.3 mg subcut Q10M PRN (Reason: anaphylaxis) Qty: 2 2RF Rx Instructions: Blue to jermaine, orange to thigh. Apply to outer thigh, hold for 3 seconds, then go to ED. HAS TO BE GENERIC for 2 doses. naproxen 500 mg tablet 500 mg PO BID PRN (Reason: pain) Qty: 180 3RF naltrexone 50 mg tablet 50 mg PO DAILY ondansetron HCl 4 mg tablet 4 mg PO DAILY PRN (Reason: Nausea) clonazepam 0.5 mg tablet 0.5 mg PO DAILY PRN (Reason: anxiety/sleep) Discharge Orders: Discharge Order (Routine); Ordered 05/06/24 Ordered By: Obdulia Pineda/Other Patient Handouts: Social Drinking vs Problem Drinking, Alcohol Withdrawal: What to Expect, ED Alcohol Withdrawal Seizure Admission Data Admit Date/Time: 05/04/24 20:28 Attending Provider: Obdulia Ovalle Admit Provider: Melissa Jimenez Primary Care Provider: Jair Cui. Other Providers: Melissa Jimenez Other Interventions: Discharge Summary Assessment (RN) Last Done: 05/06/24 11:30 Hospital Stay Data Consultations 05/04/24 19:51 ED Decision to Admit Stat Pending Results Patient Have Any Pending Studies at Discharge: No Discharge Instructions Given to Patient (Per Discharging Provider) Continue the chlordiazepoxide taper Don't mix the chloridazepoxide with alcohol, don't drive or operate heavy machinery while taking this medication because it can cause sedation/impairment. Return to the ER if you have significantly worsening withdrawal symptoms - for example, severe tremor, sweats, confusion, nausea and vomiting etc You will probably continue to experience the milder withdrawal symptoms for a few days. anxiety, headache, mild tremor/sweats for example Stay hydrated and avoid alcohol I strongly recommend resuming the vivitrol injections as soon as possible and an alcohol rehab program. Inpatient or outpatient in-person rehab is the strongest. AA type meetings aren't for everyone, however, there are online and andres based programs you might consider. Total Time Total Time Spent Total Time Spent (In Minutes): less than 30 minutes Coding Level of Care Code 67017 IN/OBS DISCH 30 MIN/LESS Diagnoses Alcohol withdrawal F10.939 Benzodiazepine abuse F13.10
[2024-05-07] MEDS ORDERED: GABAPENTIN 600 MG TAB PO SCH (10:00)
[2024-05-07] MEDS ORDERED: chlordiazePOXIDE HCl 25 MG CAP PO SCH (14:00)
[2024-05-08] MEDS ORDERED: GABAPENTIN 600 MG TAB PO SCH (22:00)
== END 2024-05-06 12:50 | disposition home or self-care (01) | DRG 897 ==
LOC: ED 18:18 → INTOOBSV 20:28 → SUATTDRO 20:28 → 2S 20:28

== ENCOUNTER 2024-08-28 12:57 | Inpatient (IN) ==
[2024-08-28] MEDS ORDERED: GABAPENTIN 250 MG/5 ML 470 ML BTL PO STA (13:23)
--- NOTE | 2024-08-28 13:56 | XRay Report ---
EXAM: Radiograph of the Chest 1 View INDICATION: Palpitations TECHNIQUE: Frontal view of the chest. COMPARISON: 08/05/2024 FINDINGS: Lungs and pleural spaces: Stable symmetrical air trapping and a mole chronic airway thickening. No consolidation or pulmonary edema. No pleural effusion or pneumothorax. Heart: Shape and configuration within normal limits allowing for technique. Mediastinum: Normal contour. Bones/joints: No fracture, erosion or dislocation. Soft tissues: No abnormality noted. No radiopaque foreign body noted. Upper abdomen: No abnormality noted. IMPRESSION: Stable chronic changes. No acute disease. ACT 112: Negative or not required by law. Electronically signed by Sabrina Wheeler 08-28-2024 13:56 PM
[2024-08-28] MEDS: SODIUM CHLORIDE 0.9% 1,000 ML IV ONE (14:19)
[2024-08-28] MEDS: GABAPENTIN 250 MG/5 ML 470 ML BTL PO STA (14:19)
[2024-08-28 14:22] LABS: Basophils # (auto) 0.02 K/uL (0.00-0.20); Basophils % (auto) 0.3 %; Eosinophils # (auto) 0.25 K/uL (0.00-0.50); Hemoglobin 14.7 g/dl (12.0-16.0); Immature Granulocytes # (auto) 0.01 K/uL (0.01-0.20); Immature Granulocytes % (auto) 0.2 %; Lymphocytes % (auto) 28.5 %; Mean Corpuscular Hemoglobin 31.3 pg (25.0-34.0); Mean Corpuscular Hgb Conc 34.2 g/dL (32.0-36.0); Mean Corpuscular Volume 91.7 fL (80.0-100.0); Mean Platelet Volume 10.1 fL (9.4-12.4); Monocytes # (auto) 0.28 K/uL (0.11-0.59); Monocytes % (auto) 4.4 %; Neutrophils # (auto) 3.95 K/uL (1.40-6.50); Neutrophils % (auto) 62.6 %; Platelet Count 221 K/uL (130-400); RDW Coefficient of Variation 12.4 % (11.5-14.5); RDW Standard Deviation 41.4 fL (36.4-46.3); Red Blood Count 4.69 M/uL (4.20-5.40); White Blood Count 6.31 K/ul (4.8-10.8)
[2024-08-28 14:34] LABS: Albumin Globulin Ratio 1.6 (0.9-2); Albumin Level 4.4 gm/dl (3.4-5.0); BUN Creatinine Ratio 15.1 (10-20); Bilirubin,Total 0.4 mg/dl (0.2-1.0); Calcium 8.9 mg/dl (8.6-10.3); Creatinine Clr Calc Pharmacy 101.7 ml/min; Globulin 2.8 gm/dl (2.5-4.0); Potassium 3.9 mmol/L (3.5-5.1); Total Protein 7.2 gm/dl (6.0-8.3)
[2024-08-28 14:41] LABS: Troponin I High Sensitivity 2.5 pg/ml (0-14)
[2024-08-28 14:50] LABS: Thyroid Stimulating Hormone 0.702 uIu/ml (0.300-4.500)
[2024-08-28 14:56] LABS: Appearance Urine Cloudy (Clear); Bacteria Urine Automated 2+ (None Seen); Bilirubin Urine Negative (Negative); Blood Urine Negative (Negative); Cast Urine Automated 0-2 /lpf (0-2); Color Urine Yellow; Epithelial Cell Urine Auto >20 /hpf (0-2); Glucose Urine UA Negative (Negative); Ketones Urine Trace (Negative); Leukocyte Esterase Urine Trace (Negative); Mucus Urine Present (None Prsent); Nitrite Urine Negative (Negative); Protein Urine Negative (Negative); RBC Urine Automated 0-2 /hpf (0-2); Specific Gravity Urine 1.019 (1.000-1.030); Urobilinogen Urine Negative (Negative); WBC Urine Automated 0-5 /hpf (0-5)
[2024-08-28 15:15] LABS: Amphetamines+Metham, Urine Neg (Neg); Barbiturates, Urine Neg (Neg); Benzodiazepine, Urine Pos (Neg); Cocaine, Urine Neg (Neg); Fentanyl, Urine Neg (Neg); MDMA (Ecstacy), Urine Neg (Neg); Marijuana, Urine Neg (Neg); Methadone, Urine Neg (Neg); Opiate, Urine Neg (Neg); Phencyclidine, Urine Neg (Neg)
[2024-08-28 15:15] LABS: Acetaminophen < 3 ug/ml (10-30); Salicylate < 3.0 mg/dl (3.0-30)
[2024-08-28] MEDS: LORazepam 1 MG TAB SL STA (15:39)
--- NOTE | 2024-08-28 16:05 | History & Physical Report ---
Date of Service August 28, 2024 Assessment & Plan (1) Alcohol withdrawal: Plan: Discussed options for treatment for alcohol withdrawal given her previous benzodiazepine overdoses elected for phenobarbital given long half-life essentially tapers itself and can avoid new medications on discharge. Phenobarbital loading dose of 650 mg IV (10 mg/kg ideal body weight 66 kg) Additional phenobarbital 130 mg IM q. 15 minutes as needed over the following 2 hours but not within half an hour of the loading dose for RASS > 0 Additional phenobarbital 130mg IM q8h PRN for RASS > 0 following this PO taper dose ordered following this Avoid benzodiazepines (other than her usual Xanax ER, see below), consider additional phenobarbital vs. olanzapine if further withdrawal symptoms not controlled with above regimen. Consider alternative diagnosis if total dose exceeding 30mg/kg (1980mg). Do not exceed total dose 40mg/kg (2640mg). Not interested in inpatient alcohol rehabilitation which appears to be reasonable since she has done this 10 times and managed to stay sober on naltrexone injections since April until this recent relapse. (2) Anxiety: Plan: Switch Xanax ER has not on formulary to clonazepam 0.5 mg HS, restart home Xanax ER on discharge (3) Alcohol use disorder: Plan: Noncompliant with naltrexone tablet. She seemed to do better on monthly injections. Recommend restarting as soon as possible on discharge. Plan VTE prophylaxis - low risk Diet - regular Disposition - admit to PCU Admission and Anticipated Discharge Date Admission Date: August 28, 2024 History of Present Illness Chief Complaint: Alcohol withdrawal Primary Care Provider: Jair Cui DO Angeles Woo is a 44-year-old female who presents to the ER due to concerns for alcohol withdrawal. She started going through alcohol withdrawal earlier today and had to drink a bottle of wine this morning to stop her going through withdrawal. She remains slightly tremulous and anxious in the emergency room and feels some mild alcohol withdrawal symptoms returning and is concerned that will get much worse over the next 24 hours. She has a significant history of alcohol withdrawal seizures when she went to rehab previously. No hallucinations or seizures on this occasion. She is not interested in alcohol rehabilitation on this occasion as she has been 10 times in the last 5 years. She was doing well after her last alcohol withdrawal which occurred in this hospital in April. On that occasion she was treated with a Librium tapering dose. She states although up until 2 weeks ago with significant increase stress and her life with the of some people she knew and rehabilitation programs sent her back to drinking excessive amounts of wine and vodka every day. Unknown how much she is drinking as she drinks until she blacks out. She is supposed to take Xanax extended release 0.5 mg at night but she thinks she may be taking more of these but again unsure how many. She has a good support system and goes to with a sponsor. She is not looking to stop her Xanax extended release as she notes this helps with a "breathing issue" during the daytime and it has been extremely helpful in this regard. During her recent sober period she was treated with Vivitrol injections. However she changed her psychiatrist and was switched to naltrexone tablet approximately 2 months ago. Per PCP note in July notes she does not particularly like the injections and therefore switched to naltrexone daily which she stopped taking when she started drinking again. Allergies Allergy/AdvReac Type Severity Reaction Status Date / Time hornet venom Allergy Severe Anaphylaxis Verified 08/11/24 08:04 Home Medications Medication Instructions Recorded Confirmed Type epinephrine 0.3 mg/0.3 mL 0.3 mg (0.3 mL) subcut Q10M PRN 10/28/23 08/28/24 Rx injection syringe anaphylaxis #2 ea ondansetron HCl 4 mg tablet 4 mg PO DAILY PRN Nausea 05/04/24 08/28/24 History multivitamin 1 tab PO DAILY 05/10/24 08/28/24 History gabapentin 100 mg capsule 100 mg PO BID PRN anxiety #60 caps 07/16/24 08/28/24 Rx naltrexone 50 mg tablet 50 mg PO DAILY 08/11/24 08/28/24 History alprazolam 0.5 mg tablet,extended 0.5 mg PO HS 08/28/24 08/28/24 History release 24 hr Past Med/Surg History Problem List (Updated 08/28/24 @ 23:05 by Robbie Ross MD) Alcohol use disorder Alcohol withdrawal (Acute) Palpitations Dense breast tissue Lump of right breast Right knee pain Hx of herpes genitalis Anaphylactic reaction to wasp sting to wasps and red ants History of alcohol abuse (Acute) Hx of drug abuse Hx drug and alcohol abuse. Dyspnea Arthritis Chest pain Lightheadedness Anxiety (Acute) Medical History Open wound of second toe of left foot Cellulitis of second toe of left foot Hx of cold sores Somatic dysfunction of pelvic region Somatic dysfunction of lumbar region Somatic dysfunction of thoracic region Somatic dysfunction of cervical region Somatic dysfunction of rib Withdrawal syndrome Intentional overdose Surgical History History of oral surgery History of D&C Family History Sister Breast cancer Denies family history of Ovarian cancer Prostate cancer Myocardial infarction Colorectal cancer Social History Smoking Status: Never smoker Second Hand Exposure: No; Do You Dip or Chew Tobacco: No; Hx Alcohol Use: Yes Alcohol type: wine and hard liquor Hx Substance Use: Yes Last Used Substance: Hours (ago) Last Used Substance Other:: xanX Substance Use Type Other:: benzos Preferred Language: Macedonian Communication Ability: Effective Visual Impairment: No Limitations Hearing Ability: Normal Wood Stock Blank Handler Required: No Beliefs That Will Affect Care: None marital status: Current Living Situation: Alone Current Living Situation Comment: Lives at home alone current occupational status: employed 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 How many Children do You have: 0 Feels Safe at Home: Yes Safety Concerns: Feels Safe At This Time Childhood Exposure to Second-Hand Smoke: No Diet: regular caffeine: Yes during the past year weight has: remained stable Dental Care, Regularly: Yes Physical Activity Frequency: Daily Seatbelt Use: always Sunscreen Use: Yes Do you think of yourself as: straight/heterosexual Sexual Activity: has been sexually active within the last 12 months Gender Identity: Female Assistive Devices: None Review of Systems Review of Systems: All systems reviewed & are unremarkable except as noted in HPI & below Physical Exam Constitutional: WD/WN, vitals as above Respiratory: normal respiratory effort, lungs clear to auscultation Cardiovascular: RRR, no murmur, no edema Gastrointestinal (Abdomen): normal bowel sounds, soft, nontender, no hepatosplenomegaly Neurologic: moves all extremities and awake; not confused Motor/Sensory: + tremor (mild) Psychiatric: Orientation: alert and oriented x 3 Eye Contact: good eye contact Speech: normal rate/rhythm/volume of speech Affect: + anxious affect Results & Data Results & Data Vital Signs (Past 12 Hours) Vital Signs Temp Pulse Pulse Resp BP BP Pulse Ox 08/28/24 14:23 84 16 133/83 96 08/28/24 13:25 08/28/24 13:23 90 08/28/24 13:08 36.7 C 90 16 152/81 H 96 O2 Del Method 08/28/24 14:23 08/28/24 13:25 Room Air 08/28/24 13:23 08/28/24 13:08 Room Air Laboratory Results Abnormal lab results 08/28/24 08/28/24 Range/Units 14:00 Unknown Alkaline Phosphatase 30 L (34-104) U/L Urine Appearance Cloudy A (Clear) Urine Ketones Trace H (Negative) Ur Leukocyte Esterase Trace H (Negative) U Epithel Cells (Auto) >20 H (0-2) /hpf Urine Bacteria (Auto) 2+ H (None Seen) Urine Mucus Present A (None Prsent) Salicylates < 3.0 L (3.0-30) mg/dl Acetaminophen < 3 L (10-30) ug/ml U Benzodiazepines Scrn Pos H (Neg) Ethyl Alcohol mg/dL 191.8 H (<10.0) mg/dl Diagnostic Findings Radiograph of the Chest 1 View INDICATION: Palpitations TECHNIQUE: Frontal view of the chest. COMPARISON: 08/05/2024 FINDINGS: Lungs and pleural spaces: Stable symmetrical air trapping and a mole chronic airway thickening. No consolidation or pulmonary edema. No pleural effusion or pneumothorax. Heart: Shape and configuration within normal limits allowing for technique. Mediastinum: Normal contour. Bones/joints: No fracture, erosion or dislocation. Soft tissues: No abnormality noted. No radiopaque foreign body noted. Upper abdomen: No abnormality noted. IMPRESSION: Stable chronic changes. No acute disease. Medications Administered ER medications given: Normal saline 1 L bolus Gabapentin 100 mg p.o. ECG Rate (beats per minute): 86 Rhythm: normal sinus Findings: + RBBB (Incomplete) and + ST elevation (Anterior leads without reciprocal changes) Comparison ECG Date: from (August 05, 2024) Change: the following changes noted (ST elevation now present in anterior leads) Code Status & VTE Plan Code Status Full VTE Prophylaxis Plan VTE Prophylaxis will be ordered: Yes PG Care Time/CCT Total # of Minutes Spent Total Time Spent with Patient: Total time spent is greater than 50% in coordination of care (as documented) at patient's floor/unit and/or counseling patient: Coding Level of Care Code 72075 INT INP/OBS CARE MIN Diagnoses Alcohol withdrawal F10.939 Anxiety F41.9 Alcohol use disorder F10.90
[2024-08-28] MEDS ORDERED: PHENobarbital sodium 65 MG/ML VIAL IV STA (16:21)
[2024-08-28 16:30] LABS: Pregnancy Test, Urine Negative (Negative)
[2024-08-28] MEDS ORDERED: PHENobarbital PO Alcohol Withdrawal PO STA (16:32)
--- NOTE | 2024-08-28 17:08 | Emergency Department Note ---
History of Present Illness General Chief complaint: Detox Request Stated complaint: DETOX Time Seen by Provider: 08/28/24 13:15 History of Present Illness Provider complaint: Detox request Maximum Pain Intensity: 7 44-year-old alcoholic female with history of benzodiazepine abuse presents emergency department requesting detox. Patient states she recently started drinking alcohol and abusing benzos again. She states she did not feel like she could detox at home and was afraid she was can have a seizure so she came to the emergency department to be admitted where she has been admitted in the past for detox. Patient denies any falls or traumas. No head injuries. No chest pain difficulty breathing. No actual seizure. No chance of . No abdominal pain. Home Medications Medication Instructions Recorded Confirmed Type epinephrine 0.3 mg/0.3 mL 0.3 mg (0.3 mL) subcut Q10M PRN 10/28/23 08/28/24 Rx injection syringe anaphylaxis #2 ea ondansetron HCl 4 mg tablet 4 mg PO DAILY PRN Nausea 05/04/24 08/28/24 History multivitamin 1 tab PO DAILY 05/10/24 08/28/24 History gabapentin 100 mg capsule 100 mg PO BID PRN anxiety #60 caps 07/16/24 08/28/24 Rx naltrexone 50 mg tablet 50 mg PO DAILY 08/11/24 08/28/24 History alprazolam 0.5 mg tablet,extended 0.5 mg PO HS 08/28/24 08/28/24 History release 24 hr Allergies Allergy/AdvReac Type Severity Reaction Status Date / Time hornet venom Allergy Severe Anaphylaxis Verified 08/11/24 08:04 Past Med/Surg History Problem List (Updated 08/28/24 @ 17:08 by Kyree Nobles MD) Alcohol withdrawal (Acute) Palpitations Dense breast tissue Lump of right breast Right knee pain Hx of herpes genitalis Anaphylactic reaction to wasp sting to wasps and red ants History of alcohol abuse (Acute) Hx of drug abuse Hx drug and alcohol abuse. Dyspnea Arthritis Chest pain Lightheadedness Anxiety (Acute) Medical History Open wound of second toe of left foot Cellulitis of second toe of left foot Hx of cold sores Somatic dysfunction of pelvic region Somatic dysfunction of lumbar region Somatic dysfunction of thoracic region Somatic dysfunction of cervical region Somatic dysfunction of rib Withdrawal syndrome Intentional overdose Surgical History History of oral surgery History of D&C Family History Sister Breast cancer Denies family history of Ovarian cancer Prostate cancer Myocardial infarction Colorectal cancer Social History Smoking Status: Never smoker Second Hand Exposure: No; Do You Dip or Chew Tobacco: No; Hx Alcohol Use: No Hx Substance Use: No Preferred Language: Korean Communication Ability: Effective Visual Impairment: No Limitations Hearing Ability: Normal Gas Turbine Mechanic Required: No Beliefs That Will Affect Care: None marital status: Current Living Situation: Alone Current Living Situation Comment: Lives at home alone current occupational status: employed 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 How many Children do You have: 0 Feels Safe at Home: Yes Childhood Exposure to Second-Hand Smoke: No Diet: regular caffeine: Yes during the past year weight has: remained stable Dental Care, Regularly: Yes Physical Activity Frequency: Daily Seatbelt Use: always Sunscreen Use: Yes Do you think of yourself as: straight/heterosexual Sexual Activity: has been sexually active within the last 12 months Gender Identity: Female Assistive Devices: None Physical Exam Vital Signs Vital Signs - 24 hr 08/28/24 13:08 08/28/24 13:23 08/28/24 13:25 Temperature 36.7 C Temperature Source Temporal Artery Scan Pulse Rate 90 90 Pulse Rate [Apical] Pulse Rhythm [Apical] Pulse Strength [Apical] Respiratory Rate 16 Respiratory Effort / Characteristics Non-Labored Spontaneous Respiratory Depth Normal Blood Pressure 152/81 H Blood Pressure [Right Arm] Blood Pressure Mean 104 Blood Pressure Mean [Right Arm] Pulse Oximetry 96 Oxygen Delivery Method Room Air Room Air Sepsis Recent Fever Within 48 Hours No Sepsis New/Unexplained Change in Mental Status N/A Sepsis Action Taken by Nursing No Action Required 08/28/24 14:23 08/28/24 16:00 Temperature Temperature Source Pulse Rate Pulse Rate [Apical] 84 91 H Pulse Rhythm [Apical] Regular Pulse Strength [Apical] Normal Respiratory Rate 16 18 Respiratory Effort / Characteristics Non-Labored Non-Labored Respiratory Depth Normal Normal Blood Pressure Blood Pressure [Right Arm] 133/83 141/94 H Blood Pressure Mean Blood Pressure Mean [Right Arm] 99 109 Pulse Oximetry 96 96 Oxygen Delivery Method Room Air Sepsis Recent Fever Within 48 Hours Sepsis New/Unexplained Change in Mental Status Sepsis Action Taken by Nursing Physical Exam HENT: Exam performed. - Head: Normocephalic and atraumatic. EYES: Conjunctivae and EOM are normal. Right eye exhibits no discharge. Left eye exhibits no discharge. No scleral icterus. NECK: Normal range of motion. Neck supple. No JVD present. CV: Normal rate, regular rhythm, normal heart sounds and intact distal pulses. There is no peripheral edema. Palpable radial pulses bue. PULM/CHEST: Effort normal and breath sounds normal. No respiratory distress. No stridor. no wheezes. no rales. ABD: The abdomen is soft. There is no tenderness. NEURO: Motor and sensation grossly intact. SKIN: Skin is warm and dry. He is not diaphoretic. PSYCH: Bizarre affect. Course Course 1315: The patient was evaluated in room B3. A complete history and physical exam was performed Cardiac monitoring: An order was placed for continuous cardiac monitoring. The monitor shows a rate of 90 with sinus rhythm interpreted by me 1520: Vital signs stable. Labs and imaging are unremarkable. Patient met with case management and stated she cannot go home because she thinks she is can have a seizure and will not be able to detox at home. She also states she does not wish to be going to any detox center because she states she will lose her job. She is requesting to be detox in this hospital as she has in the past. [facility] was admitted in the past for similar episodes. Administered Medications Discontinued Medications Gabapentin (Gabapentin 250 Mg/5 Ml 470 Ml Btl) 100 mg PO NOW STA Stop: 08/28/24 13:34 Last Admin: 08/28/24 14:19 Dose: 100 mg Documented By: JANNY Sodium Chloride (Nss) 1,000 mls @ 999 mls/hr IV .Q1H1M ONE Stop: 08/28/24 14:16 Last Infusion: 08/28/24 15:20 Dose: Infused Documented By: Admin: 08/28/24 14:19 Dose: 999 mls/hr Documented By: JANNY Lorazepam (Lorazepam 1 Mg Tab) 1 mg SL NOW STA Stop: 08/28/24 13:17 Last Admin: 08/28/24 15:39 Dose: Not Given Documented By: HB Medical Decision Making Laboratory Data Attestation: I reviewed the patient's lab results. 08/28/24 Unknown 08/28/24 Unknown Lab Results 08/28/24 08/28/24 Range/Units 14:00 Unknown WBC 6.31 (4.8-10.8) K/ul RBC 4.69 (4.20-5.40) M/uL Hgb 14.7 (12.0-16.0) g/dl Hct 43.0 (37.0-47.0) % MCV 91.7 (80.0-100.0) fL MCH 31.3 (25.0-34.0) pg MCHC 34.2 (32.0-36.0) g/dL RDW Std Deviation 41.4 (36.4-46.3) fL RDW Coeff of Zahraa 12.4 (11.5-14.5) % Plt Count 221 (130-400) K/uL MPV 10.1 (9.4-12.4) fL Immature Gran % (Auto) 0.2 % Neut % (Auto) 62.6 % Lymph % (Auto) 28.5 % Allen % (Auto) 4.4 % Eos % (Auto) 4.0 % Baso % (Auto) 0.3 % Neut # (Auto) 3.95 (1.40-6.50) K/uL Lymph # (Auto) 1.80 (1.20-3.40) K/uL Allen # (Auto) 0.28 (0.11-0.59) K/uL Eos # (Auto) 0.25 (0.00-0.50) K/uL Baso # (Auto) 0.02 (0.00-0.20) K/uL Immature Gran # (Auto) 0.01 (0.01-0.20) K/uL Sodium 139 (136-145) mmol/L Potassium 3.9 (3.5-5.1) mmol/L Chloride 105 (98-107) mmol/L Carbon Dioxide 26 (21-32) mmol/L Anion Gap 8 (3-11) BUN 11 (6-23) mg/dl Creatinine 0.73 (0.6-1.2) mg/dl Est Cr Clr Drug Dosing 101.7 ml/min eGFR 103.29 BUN/Creatinine Ratio 15.1 (10-20) Glucose 90 (70-99(Fasting)) mg/dl Calcium 8.9 (8.6-10.3) mg/dl Total Bilirubin 0.4 (0.2-1.0) mg/dl AST 15 (13-39) U/L ALT 11 (7-52) U/L Alkaline Phosphatase 30 L (34-104) U/L Troponin I High Sens 2.5 (0-14) pg/ml Total Protein 7.2 (6.0-8.3) gm/dl Albumin 4.4 (3.4-5.0) gm/dl Globulin 2.8 (2.5-4.0) gm/dl Albumin/Globulin Ratio 1.6 (0.9-2) TSH 0.702 (0.300-4.500) uIu/ml Urine Color Yellow Urine Appearance Cloudy A (Clear) Urine pH 7.0 (4.5-7.5) Ur Specific [place] 1.019 (1.000-1.030) Urine Protein Negative (Negative) Urine Glucose (UA) Negative (Negative) Urine Ketones Trace H (Negative) Urine Blood Negative (Negative) Urine Nitrite Negative (Negative) Urine Bilirubin Negative (Negative) Urine Urobilinogen Negative (Negative) Ur Leukocyte Esterase Trace H (Negative) Urine WBC (Auto) 0-5 (0-5) /hpf Urine RBC (Auto) 0-2 (0-2) /hpf U Hyaline Cast (Auto) 0-2 (0-2) /lpf U Epithel Cells (Auto) >20 H (0-2) /hpf Urine Bacteria (Auto) 2+ H (None Seen) Urine Mucus Present A (None Prsent) Urine Test Negative (Negative) Salicylates < 3.0 L (3.0-30) mg/dl Urine Opiates Screen Neg (Neg) Ur Methadone, Qual Neg (Neg) Urine Fentanyl Screen Neg (Neg) Acetaminophen < 3 L (10-30) ug/ml Urine Barbiturates Neg (Neg) Ur Phencyclidine (PCP) Neg (Neg) U Amphetamin/Meth Scrn Neg (Neg) MDMA (Ecstasy) Screen Neg (Neg) U Benzodiazepines Scrn Pos H (Neg) Ur Cocaine Metabolite Neg (Neg) U Marijuana (THC) Screen Neg (Neg) Ethyl Alcohol mg/dL 191.8 H (<10.0) mg/dl Imaging Data Attestation: I personally reviewed and interpreted this imaging study as follows: Radiologist's Impression: Chest X-Ray 08/28/24 13:25 EXAM: Radiograph of the Chest 1 View INDICATION: Palpitations TECHNIQUE: Frontal view of the chest. COMPARISON: 08/05/2024 FINDINGS: Lungs and pleural spaces: Stable symmetrical air trapping and a mole chronic airway thickening. No consolidation or pulmonary edema. No pleural effusion or pneumothorax. Heart: Shape and configuration within normal limits allowing for technique. Mediastinum: Normal contour. Bones/joints: No fracture, erosion or dislocation. Soft tissues: No abnormality noted. No radiopaque foreign body noted. Upper abdomen: No abnormality noted. IMPRESSION: Stable chronic changes. No acute disease. ACT 112: Negative or not required by law. Electronically signed by Sabrina Wheeler 08-28-2024 13:56 PM ECG Data Attestation: I personally reviewed and interpreted this ECG as follows: Rate (beats per minute): 86 Rhythm: + normal sinus ECG Intervals/blocks: + Normal QRS, + Normal MI and + Normal QT-c ECG ST segments: + Normal ST segments [facility] Narrative 1315: The patient was evaluated in room B3. A complete history and physical exam was performed Cardiac monitoring: An order was placed for continuous cardiac monitoring. The monitor shows a rate of 90 with sinus rhythm interpreted by me 1520: Vital signs stable. Labs and imaging are unremarkable. Patient met with case management and stated she cannot go home because she thinks she is can have a seizure and will not be able to detox at home. She also states she does not wish to be going to any detox center because she states she will lose her job. She is requesting to be detox in this hospital as she has in the past. Will discuss with [facility] hospitalist team was admitted in the past for similar episodes. Impression & Plan Alcohol withdrawal Discharge Plan Visit Data Chief Complaint: Detox Request Stated Complaint: DETOX ED Provider: Kyree Nobles Discharge Problem: Alcohol withdrawal Patient Disposition: Being Evaluated by Hospitalist Forms Stand Alone Forms: [facility], Suicide Prevention Resources Prescriptions Prescriptions: No Action epinephrine 0.3 mg/0.3 mL syringe 0.3 mg subcut Q10M PRN (Reason: anaphylaxis) Qty: 2 2RF Rx Instructions: Blue to jermaine, orange to thigh. Apply to outer thigh, hold for 3 seconds, then go to ED. HAS TO BE GENERIC for 2 doses. gabapentin 100 mg capsule 100 mg PO BID PRN (Reason: anxiety) Qty: 60 5RF Rx Instructions: Do not fill scripts early naltrexone 50 mg tablet 50 mg PO DAILY multivitamin Tablet 1 tab PO DAILY ondansetron HCl 4 mg tablet 4 mg PO DAILY PRN (Reason: Nausea) alprazolam 0.5 mg tablet extended release 24 hr 0.5 mg PO HS Referrals Referrals: Jair Cui DO [Primary Care Provider] -
[2024-08-28] MEDS ORDERED: PHENobarbital sodium 65 MG/ML VIAL IM PRN (19:00)
[2024-08-28] MEDS ORDERED: ONDANSETRON 4 MG OD TAB PO PRN (19:08)
[2024-08-28] MEDS: clonazePAM 0.5 MG TAB PO SCH (20:45)
[2024-08-28] MEDS: PHENobarbital sodium 65 MG/ML VIAL IM PRN (20:46)
[2024-08-29] MEDS: GABAPENTIN 100 MG CAP PO PRN (08:31)
--- NOTE | 2024-08-29 10:22 | Electrocardiogram Report ---
Test Reason : Blood Pressure : */* mmHG Vent. Rate : 86 BPM Atrial Rate : 86 BPM P-R Int : 160 ms QRS Dur : 96 ms QT Int : 366 ms P-R-T Axes : 42 26 39 degrees QTcB Int : 437 ms Normal sinus rhythm Incomplete right bundle branch block Nonspecific ST abnormality Abnormal ECG When compared with ECG of 05-Aug-2024 15:44, ST elevation now present in Anterior leads Confirmed by Tom Baum ([id number]) on 08/29/2024 10:22:22 AM Referred By: REFERRED SELF Confirmed By: Tom Baum
[2024-08-29] MEDS: PHENobarbitaL 30 MG TAB PO SCH (10:29)
--- NOTE | 2024-08-29 10:35 | Hospitalist Progress Note ---
Date of Service August 29, 2024 Assessment & Plan (1) Alcohol withdrawal: Plan: Pt on phenobarbital as she wants to avoid benzodiazepines PO taper dose ordered Thiamine, folic acid, multivitamin Not interested in inpatient alcohol rehabilitation (2) Anxiety: Plan: clonazepam 0.5 mg HS (3) Alcohol use disorder: Plan: Noncompliant with naltrexone tablet Plan Monitor for signs of acute withdrawal, which patient is likely to have in the next 12-24hrs. Admission and Anticipated Discharge Date Admission Date: August 28, 2024 Subjective Pt states last drink was yesterday morning. No signs of acute withdrawal at this time. Review of Systems Review of Systems: CONST: Negative for fever, body aches and chills. HENT: Negative for neck pain/stiffness, headache, congestion, sore throat, swelling. EYES: Negative for discharge/pain or vision changes. RESP: Negative for cough/hemoptysis and shortness of breath. CV: Negative chest pain, difficulty breathing, palpitations. ABD: Negative pain, nausea, vomiting. : Negative increase frequency, dysuria, blood in urine or stool. MUSC: Negative for muscle aches, edema. SKIN: Negative rash, lesions/sores. NEURO: Negative headache, dizziness, weakness. Physical Exam Physical Exam: GENERAL APPEARANCE NAD, activity normal for age, well developed/ well nourished, no cyanosis, pallor, or diaphoresis. EYES lids/conjunctiva normal. EARS/NOSE/THROAT Mucous membranes moist, nares normal, lips/teeth normal uvula midline without oral pharyngeal erythema, exudate or swelling TMs normal bilaterally. No lymphangitis/lymphedema. HEAD/NECK normocephalic atraumatic, no facial trauma, neck is supple. RESPIRATORY respiratory effort normal, speaks in full sentences, no tripod position, no accessory muscle use. Lungs clear to auscultation without rhonchi, wheezes, rales CARDIAC Regular rate and rhythm, no edema. ABDOMINAL Soft, ND/NT. No evidence of fluid wave. No pulsatile masses on exam, rebound tenderness, Menon sign or pain over Mcburney's point. MUSCLES/EXTREMITIES No abnormal range of motion, no swelling. SKIN Warm, pink and dry. No rashes, dermatoses, petechiae or lesions. NEUROLOGICAL Speech is clear and appropriate. Normal level of consciousness. Gait and coordination are normal. 5/5 strength in all extremities. PSYCH Normal mood and affect. Judgement/competence is appropriate Results & Data Results & Data Vital Signs (Past 12 Hours) Vital Signs Temp Pulse Pulse Resp BP Pulse Ox O2 Del Method 08/29/24 09:24 69 08/29/24 07:58 36.9 C 77 17 148/94 H 96 Room Air 08/29/24 04:37 36.6 C 70 16 135/79 95 Room Air 08/29/24 00:47 82 08/28/24 22:29 36.6 C 79 16 129/78 98 Room Air PG Care Time/CCT Total # of Minutes Spent Total Time Spent with Patient: Total time spent is greater than 50% in coordination of care (as documented) at patient's floor/unit and/or counseling patient: Coding Level of Care Code 86162 SUB INP/OBS CARE 2/35MIN Diagnoses Alcohol withdrawal F10.939 Anxiety F41.9 Alcohol use disorder F10.90
[2024-08-29] MEDS: THIAMINE HCL 100 MG TAB PO SCH (11:05)
[2024-08-29] MEDS: MULTIVITAMIN TAB PO SCH (11:05)
[2024-08-29] MEDS: FOLIC ACID 1 MG TAB PO SCH (11:05)
[2024-08-29 15:58] VITALS: RESP 18
[2024-08-29] MEDS ORDERED: GABAPENTIN 600 MG TAB PO STA (18:07)
[2024-08-29] MEDS ORDERED: GABAPENTIN 100 MG CAP PO PRN (18:08)
[2024-08-29] MEDS: GABAPENTIN 100 MG CAP PO STA (18:13)
[2024-08-29 19:29] VITALS: O2SAT 96
[2024-08-30 03:50] VITALS: PULSE 79; TEMP 98.6
--- NOTE | 2024-08-30 09:59 | Discharge Summary ---
Discharge Summary Date of Service August 30, 2024 Principal Dx & Hospital Course #1 = Principal Diagnosis (1) Alcohol withdrawal: (2) Anxiety: (3) Alcohol use disorder: Plan Bren Woo is a 44-year-old female admitted to the [facility] from August 28 to 2024 due to concerns for alcohol withdrawal. She was treated with IV/IM/p.o. phenobarbital which controlled her symptoms well and she is now medically stable for discharge. Notes For Next Care Provider Patient wishes to follow-up with the [facility] residency clinic to discuss Vivitrol injections Medication Changes From Visit No change to her medications but she wishes to follow-up to discuss switching naltrexone tablets for Vivitrol injections Admission HPI Per Admitting Provider Angeles Woo is a 44-year-old female who presents to the ER due to concerns for alcohol withdrawal. She started going through alcohol withdrawal earlier today and had to drink a bottle of wine this morning to stop her going through withdrawal. She remains slightly tremulous and anxious in the emergency room and feels some mild alcohol withdrawal symptoms returning and is concerned that will get much worse over the next 24 hours. She has a significant history of alcohol withdrawal seizures when she went to rehab previously. No hallucinations or seizures on this occasion. She is not interested in alcohol rehabilitation on this occasion as she has been 10 times in the last 5 years. She was doing well after her last alcohol withdrawal which occurred in this hospital in April. On that occasion she was treated with a Librium tapering dose. She states although up until 2 weeks ago with significant increase stress and her life with the of some people she knew and rehabilitation programs sent her back to drinking excessive amounts of wine and vodka every day. Unknown how much she is drinking as she drinks until she blacks out. She is supposed to take Xanax extended release 0.5 mg at night but she thinks she may be taking more of these but again unsure how many. She has a good support system and goes to with a sponsor. She is not looking to stop her Xanax extended release as she notes this helps with a "breathing issue" during the daytime and it has been extremely helpful in this regard. During her recent sober period she was treated with Vivitrol injections. However she changed her psychiatrist and was switched to naltrexone tablet approximately 2 months ago. Per PCP note in July notes she does not particularly like the injections and therefore switched to naltrexone daily which she stopped taking when she started drinking again. Discharge Exam Constitutional WD/WN, vitals as above Discharge Plan Discharge Items Patient Disposition: Home - Self-Care Reason For Visit: ALCOHOL WITHDRAWAL Discharge Diagnosis: Alcohol withdrawal Activity: Resume your previous activity Non-emergency contact: Primary Care Provider Call non-emergency contact if: you have any medication questions and your symptoms worsen Follow-up/Referrals: Jair Cui DO [Primary Care Provider] - 09/06/24 12:00 pm (Hospital follow up scheduled September 06 at 12:00) Jim Herrmann DO [Resident] - (Follow up to discuss Vivitrol injections) Diet: Regular Addtl Attending Provider Instructions: You were admitted to [facility] from August 28 to 2024 due to concerns for alcohol withdrawal. You were treated with phenobarbital which controlled your symptoms well. You are now medically stable for discharge. Pending Studies at Discharge: No Stand-Alone Forms: My [facility], Work/School Release, Smoking Cessation Medications and DC Order Prescriptions: Continued epinephrine 0.3 mg/0.3 mL syringe 0.3 mg subcut Q10M PRN (Reason: anaphylaxis) Qty: 2 2RF Rx Instructions: Blue to jermaine, orange to thigh. Apply to outer thigh, hold for 3 seconds, then go to ED. HAS TO BE GENERIC for 2 doses. gabapentin 100 mg capsule 100 mg PO BID PRN (Reason: anxiety) Qty: 60 5RF Rx Instructions: Do not fill scripts early naltrexone 50 mg tablet 50 mg PO DAILY multivitamin Tablet 1 tab PO DAILY ondansetron HCl 4 mg tablet 4 mg PO DAILY PRN (Reason: Nausea) alprazolam 0.5 mg tablet extended release 24 hr 0.5 mg PO HS Discharge Orders: Discharge Order (Routine); Ordered 08/30/24 Ordered By: Robbie Ross Admission Data Admit Date/Time: 08/28/24 16:31 Attending Provider: Robbie Ross Admit Provider: Robbie Ross Primary Care Provider: Jair Cui Other Interventions: Discharge Summary Assessment (RN) Last Done: 08/30/24 12:30 Hospital Stay Data Consultations 08/28/24 15:21 ED Decision to Admit Stat Pending Results Patient Have Any Pending Studies at Discharge: No Discharge Instructions Given to Patient (Per Discharging Provider) You were admitted to [facility] from August 28 to 2024 due to concerns for alcohol withdrawal. You were treated with phenobarbital which controlled your symptoms well. You are now medically stable for discharge. Total Time Total Time Spent Total Time Spent (In Minutes): 35 Coding Level of Care Code 27236 INP/OBS DISCH >30 MIN Diagnoses Alcohol withdrawal F10.939 Anxiety F41.9 Alcohol use disorder F10.90
[2024-08-30] MEDS: PHENobarbitaL 30 MG TAB PO SCH (10:51)
[2024-08-30 12:32] VITALS: BP 137/81
[2024-08-31] MEDS ORDERED: PHENobarbitaL 30 MG TAB PO SCH (22:45)
== END 2024-08-30 12:40 | disposition home or self-care (01) | DRG 897 ==
LOC: ED 12:57 → 2E 16:31 → SUATTDRO 16:31 → 2E 20:11
DX: F41.9 Anxiety disorder, unspecified; T42.4X1A Poisoning by benzodiazepines, accidental (unintentional), initial encounter; Z91.128 Patient's intentional underdosing of medication regimen for other reason; Y90.6 Blood alcohol level of 120-199 mg/100 ml; Z79.899 Other long term (current) drug therapy; F10.139 Alcohol abuse with withdrawal, unspecified; Z91.030 Bee allergy status; T50.7X6A Underdosing of analeptics and opioid receptor antagonists, initial encounter

== ENCOUNTER 2025-01-28 11:41 | Inpatient (IN) ==
--- NOTE | 2025-01-28 12:09 | Emergency Department Note ---
Impression & Plan Alcohol dependence, Alcohol withdrawal ED Provider Note Name: DAGMAR LI Age: 44 Sex: Female Arrives Via: Walk-In Informant: Patient ED Provider: Ildefonso Padgett MD Chief Complaint: Alcohol withdrawal Impression: As per impressions above Medical Decision Makin-year-old patient with alcohol and benzodiazepine dependence arrives for third time within the last 48 hours attempting to wean himself off alcohol. Worsening tremors and shakes at home. She arrives from home having just drank some alcohol. A bit anxious but otherwise not hypertensive or significantly tachycardic at this time. Patient has extensive history of significant withdrawal including seizures in the past. She has required hospitalization including phenobarbital. Patient is requesting hospitalization at this time. Laboratory workup is fortunately unremarkable. She was given some IV thiamine. Patient continues to wish to be admitted and I think at this point especially given the recurrent trips to the ER hospitalization is warranted. Hospitalist consulted for further management. I do not feel patient is septic at this time. There is no evidence of stroke or other toxicologic issue. Electrolytes are essentially unremarkable. Triage/Nursing Notes reviewed by Me External Chart Review by me: I reviewed the patient's discharge summary from 12/01/2024 discussing her recent hospitalization for alcohol withdrawal. Differential:Infection, dehydration, metabolic abnormality, hypo/hyperglycemia, electrolyte disturbance, anemia, hypoxia, cardiac sources, intracerebral event, toxicologic, neurologic, as well as other pathologies. Vital Signs: reviewed and remarkable for just mild tachycardia Interventions: Normal Saline bolus IV Labs:ED labs Reviewed by me and remarkable for mildly elevated alcohol level and mildly elevated LFTs consistent with previous Cardiac/Tele Monitoring: Cardiac Monitoring: An Order was placed for continuous cardiac monitoring. The monitor shows a rate of 105 with a sinus tachy rhythm. Consults:Discussed with hospitalist who will further evaluate and manage. Plan: Disposition:Hospitalization. Condition: Fair History of Present Illness: 44-year-old female arrives for evaluation of alcohol addiction. Patient states that she has alcohol and benzodiazepine addiction was prescribed benzodiazepines. She states she had been sober for several years and then started drinking again. She has had multiple stays at rehab/detox multiple previous hospital admissions for this. Notes she has been drinking for the last month or so after hospitalization 2 months ago. She attempted to wean herself off the last few days without success. She states she has been in the ER 1 or 2 times (per chart it has been 2 times in the last 48 hours). Patient states she got home last night and became more tremulous. She started drinking again this morning. She said she drank right before she came over here this afternoon. Notes she did use some of her benzodiazepines. She feels she would like to be off benzodiazepines as well but currently her focus is on alcohol. Patient states that she does have a history of seizures, hallucinations. She wishes to be on a phenobarbital IV as that is all that works for her. Does note she is received Vivitrol injections in the past. Past Medical History: Alcohol addiction, benzodiazepine abuse, drug abuse Home Medications: Xanax, citalopram, gabapentin Allergies: Hornets Vitals:Blood Pressure: 145/95, Pulse 106, RR 18, T 36.7C, O2 97% on RA Physical Exam: GENERAL: Patient is mildly intoxicated appearing and in mild distress. Anxious RESPIRATORY: No dyspnea. Clear to auscultation and equal bilaterally. CARDIOVASCULAR: Mildly tachycardic.No murmur appreciated. GASTROINTESTINAL: Abdomen soft, non-tender, no peritonitis. EXTREMITIES: Normal motion all extremities, no cyanosis, no edema. NEUROLOGIC: Alert and oriented. No focal neurologic deficits appreciated SKIN: No rash, no jaundice, no diaphoresis. PSYCH: Appropriate, anxious GCS: 15 ED Course: Times/Reassessments: Repeat evaluation patient is sitting stable in bed but is continuing to request hospitalization. Ildefonso Padgett MD Past Med/Surg History Problem List (Updated 01/28/25 @ 17:44 by Ildefonso Padgett MD) Alcohol withdrawal (Acute) Benzodiazepine abuse (Acute) Alcohol dependence (Acute) Alcohol intoxication (Acute) Dense breast tissue Lump of right breast Hx of herpes genitalis Hx of drug abuse Hx drug and alcohol abuse. Medical History Alcohol withdrawal with inpatient treatment Chronic prescription benzodiazepine use Alcohol use disorder Anxiety Open wound of second toe of left foot Cellulitis of second toe of left foot Hx of cold sores Somatic dysfunction of pelvic region Somatic dysfunction of lumbar region Somatic dysfunction of thoracic region Somatic dysfunction of cervical region Somatic dysfunction of rib Withdrawal syndrome Intentional overdose Surgical History History of oral surgery History of D&C Family History Sister Breast cancer Denies family history of Ovarian cancer Prostate cancer Myocardial infarction Colorectal cancer Social History Smoking Status: Never smoker Second Hand Exposure: No; Do You Dip or Chew Tobacco: No; Hx Alcohol Use: Yes Alcohol type: wine Hx Substance Use: Yes (drinking) Last Used Substance: Hours (ago) Last Used Substance Other:: xanax Substance Use Type Other:: benzo xanax Preferred Language: Italian Communication Ability: Effective Visual Impairment: No Limitations Hearing Ability: Normal Steel Tester Required: No Beliefs That Will Affect Care: None marital status: Current Living Situation: Alone Current Living Situation Comment: Lives at home alone current occupational status: employed 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 How many Children do You have: 0 Feels Safe at Home: Yes Childhood Exposure to Second-Hand Smoke: No Diet: regular caffeine: Yes during the past year weight has: remained stable Dental Care, Regularly: Yes Physical Activity Frequency: Daily Seatbelt Use: always Sunscreen Use: Yes Do you think of yourself as: straight/heterosexual Sexual Activity: has been sexually active within the last 12 months Gender Identity: Female Assistive Devices: None Allergies Allergies Allergy/AdvReac Type Severity Reaction Status Date / Time hornet venom Allergy Severe Anaphylaxis Verified 01/28/25 14:59 Home Meds Home Medications Medication Instructions Recorded Confirmed multivitamin 1 tab PO DAILY 05/10/24 01/28/25 citalopram 10 mg tablet 10 mg PO HS 01/26/25 01/28/25 gabapentin 100 mg capsule 200 mg PO BID PRN anxiety 01/26/25 01/28/25 epinephrine 0.3 mg/0.3 mL 0.3 mg IM DIRECTED PRN Allergic 01/28/25 01/28/25 injection, auto-injector (EpiPen) Reaction fluoxetine 10 mg capsule 10 mg PO HS 01/28/25 01/28/25 Previous Rx's Medication Instructions Recorded ondansetron HCl 4 mg tablet 4 mg PO DAILY PRN Nausea 30 days 12/01/24 #20 tabs alprazolam 0.5 mg tablet,extended 0.5 mg PO HS #30 tabs 01/21/25 release 24 hr Results & Data (ED) Vital Signs Vital Signs - 24 hr 01/28/25 11:44 01/28/25 12:33 01/28/25 12:38 Temperature 36.7 C Temperature Source Temporal Artery Scan Pulse Rate 106 H 86 Pulse Rate [Apical] Pulse Rhythm Pulse Rhythm [Apical] Pulse Strength [Apical] Respiratory Rate 18 Respiratory Effort / Characteristics Respiratory Depth Respiratory Pattern Blood Pressure 145/95 H Blood Pressure [Right Arm] Blood Pressure Mean 111 Blood Pressure Mean [Right Arm] Blood Pressure Position [Right Arm] Pulse Oximetry 97 94 Oxygen Delivery Method Room Air Nasal Cannula Sepsis Recent Fever Within 48 Hours No Sepsis New/Unexplained Change in Mental Status N/A Sepsis Action Taken by Nursing No Action Required 01/28/25 13:30 01/28/25 15:25 01/28/25 15:31 Temperature Temperature Source Pulse Rate 81 84 Pulse Rate [Apical] 78 Pulse Rhythm Regular Pulse Rhythm [Apical] Pulse Strength [Apical] Respiratory Rate 21 24 24 Respiratory Effort / Characteristics Non-Labored Spontaneous Respiratory Depth Normal Respiratory Pattern Blood Pressure 126/80 Blood Pressure [Right Arm] 121/86 Blood Pressure Mean Blood Pressure Mean [Right Arm] 97 Blood Pressure Position [Right Arm] Semi-fowlers Pulse Oximetry 94 96 Oxygen Delivery Method Room Air Room Air Sepsis Recent Fever Within 48 Hours Sepsis New/Unexplained Change in Mental Status Sepsis Action Taken by Nursing 01/28/25 15:31 01/28/25 16:00 01/28/25 16:41 Temperature 36.5 C Temperature Source Oral Pulse Rate 83 Pulse Rate [Apical] 84 85 Pulse Rhythm Pulse Rhythm [Apical] Regular Pulse Strength [Apical] Normal Normal Respiratory Rate 24 21 Respiratory Effort / Characteristics Non-Labored Spontaneous Non-Labored Spontaneous Respiratory Depth Normal Normal Respiratory Pattern Regular Regular Blood Pressure Blood Pressure [Right Arm] 127/80 129/84 Blood Pressure Mean Blood Pressure Mean [Right Arm] 95 99 Blood Pressure Position [Right Arm] Pulse Oximetry 94 94 Oxygen Delivery Method Room Air Room Air Sepsis Recent Fever Within 48 Hours Sepsis New/Unexplained Change in Mental Status Sepsis Action Taken by Nursing 01/28/25 16:50 Temperature Temperature Source Pulse Rate 79 Pulse Rate [Apical] Pulse Rhythm Pulse Rhythm [Apical] Pulse Strength [Apical] Respiratory Rate 24 Respiratory Effort / Characteristics Respiratory Depth Respiratory Pattern Blood Pressure 125/80 Blood Pressure [Right Arm] Blood Pressure Mean Blood Pressure Mean [Right Arm] Blood Pressure Position [Right Arm] Pulse Oximetry Oxygen Delivery Method Sepsis Recent Fever Within 48 Hours Sepsis New/Unexplained Change in Mental Status Sepsis Action Taken by Nursing Laboratory Data 01/28/25 12:21 01/28/25 12:21 Lab Results 01/28/25 Range/Units 12:21 WBC 3.89 L (4.8-10.8) K/ul RBC 3.93 L (4.20-5.40) M/uL Hgb 12.4 (12.0-16.0) g/dl Hct 36.6 L (37.0-47.0) % MCV 93.1 (80.0-100.0) fL MCH 31.6 (25.0-34.0) pg MCHC 33.9 (32.0-36.0) g/dL RDW Std Deviation 43.0 (36.4-46.3) fL RDW Coeff of [place] 12.5 (11.5-14.5) % Plt Count 124 L (130-400) K/uL MPV 10.1 (9.4-12.4) fL Immature Gran % (Auto) 0.3 % Neut % (Auto) 59.1 % Lymph % (Auto) 26.0 % [place] % (Auto) 7.2 % Eos % (Auto) 6.9 % Baso % (Auto) 0.5 % Neut # (Auto) 2.30 (1.40-6.50) K/uL Lymph # (Auto) 1.01 L (1.20-3.40) K/uL [place] # (Auto) 0.28 (0.11-0.59) K/uL Eos # (Auto) 0.27 (0.00-0.50) K/uL Baso # (Auto) 0.02 (0.00-0.20) K/uL Immature Gran # (Auto) 0.01 (0.01-0.20) K/uL Stomatocytes 1+ Sodium 137 (136-145) mmol/L Potassium 4.1 (3.5-5.1) mmol/L Chloride 104 (98-107) mmol/L Carbon Dioxide 24 (21-32) mmol/L Anion Gap 9 (3-11) BUN 9 (6-23) mg/dl Creatinine 0.66 (0.6-1.2) mg/dl Est Cr Clr Drug Dosing 112.5 ml/min eGFR 110.17 BUN/Creatinine Ratio 13.6 (10-20) Glucose 95 (70-99(Fasting)) mg/dl Calcium 8.7 (8.6-10.3) mg/dl Magnesium 2.0 (1.7-2.4) mg/dl Total Bilirubin 0.6 (0.2-1.0) mg/dl Direct Bilirubin 0.1 (0-0.2) mg/dl AST 63 H (13-39) U/L ALT 76 H (7-52) U/L Alkaline Phosphatase 29 L (34-104) U/L Total Creatine Kinase 76 (26-192) U/L Total Protein 7.0 (6.0-8.3) gm/dl Albumin 4.2 (3.4-5.0) gm/dl Lipase 7 L (11-82) U/L TSH 0.768 (0.300-4.500) uIu/ml Urine Color Yellow Urine Appearance Clear (Clear) Urine pH 6.5 (4.5-7.5) Ur Specific [place] 1.006 (1.000-1.030) Urine Protein Negative (Negative) Urine Glucose (UA) Negative (Negative) Urine Ketones Negative (Negative) Urine Blood Trace H (Negative) Urine Nitrite Negative (Negative) Urine Bilirubin Negative (Negative) Urine Urobilinogen Negative (Negative) Ur Leukocyte Esterase Negative (Negative) Urine WBC (Auto) 0-5 (0-5) /hpf Urine RBC (Auto) 0-2 (0-2) /hpf U Hyaline Cast (Auto) 0-2 (0-2) /lpf U Epithel Cells (Auto) 3-5 H (0-2) /hpf Urine Bacteria (Auto) None Seen (None Seen) Urine Comment Urine Opiates Screen Neg (Neg) Ur Methadone, Qual Neg (Neg) Urine Fentanyl Screen Neg (Neg) Urine Barbiturates Neg (Neg) Ur Phencyclidine (PCP) Neg (Neg) U Amphetamin/Meth Scrn Neg (Neg) MDMA (Ecstasy) Screen Neg (Neg) U Benzodiazepines Scrn Pos H (Neg) Ur Cocaine Metabolite Neg (Neg) U Marijuana (THC) Screen Neg (Neg) Ethyl Alcohol mg/dL 191.1 H (<10.0) mg/dl Administered Medications Discontinued Medications Sodium Chloride (Nss) 1,000 mls @ 999 mls/hr IV .Q1H1M ONE Stop: 01/28/25 13:05 Last Infusion: 01/28/25 14:46 Dose: Infused Documented By: Admin: 01/28/25 12:30 Dose: 999 mls/hr Documented By: DEMI Thiamine HCl 100 mg/ Syringe 10 mls @ 2 mls/min IV NOW STA Stop: 01/28/25 12:09 Last Admin: 01/28/25 12:51 Dose: 2 mls/min Documented By: JENNIFER Phenobarbital Sodium 280 mg/ (Sodium Chloride) 52.1538 mls @ 104.308 mls/hr IV NOW STA Stop: 01/28/25 15:22 Last Infusion: 01/28/25 16:00 Dose: Infused Documented By: Admin: 01/28/25 15:25 Dose: 104.3 mls/hr Documented By: MOLLY Phenobarbital Sodium (Phenobarbital Sodium 65 Mg/Ml Vial) 130 mg IV ONE ONE Stop: 01/28/25 16:11 Last Admin: 01/28/25 16:50 Dose: 130 mg Documented By: MOLLY Discharge Plan Visit Data Chief Complaint: Detox Request Stated Complaint: DETOX ED Provider: Ildefonso Padgett Discharge Problem: Alcohol dependence, Alcohol withdrawal Patient Disposition: Home - Self-Care Condition: Fair Forms Stand Alone Forms: [facility], Suicide Prevention Resources, Important Visit Information Prescriptions Prescriptions: No Action alprazolam 0.5 mg tablet extended release 24 hr 0.5 mg PO HS Qty: 30 0RF multivitamin Tablet 1 tab PO DAILY ondansetron HCl 4 mg tablet 4 mg PO DAILY PRN (Reason: Nausea) 30 Days Qty: 20 0RF citalopram 10 mg Tablet 10 mg PO HS gabapentin 100 mg capsule 200 mg PO BID PRN (Reason: anxiety) Rx Instructions: Do not fill scripts early fluoxetine 10 mg capsule 10 mg PO HS Rx Instructions: ON EXT MED HX--LAST FILLED 12/15/24 FOR 90 DAYS/90 TABS, PT NOT SURE IF TAKING. epinephrine [EpiPen] 0.3 mg/0.3 mL Auto-Injector 0.3 mg IM DIRECTED PRN (Reason: Allergic Reaction) Referrals Referrals: Jair Cui DO [Primary Care Provider] - Discharge Problem: Alcohol dependence Qualifiers: Substance use status: unspecified alcohol-induced disorder Qualified Code(s): F 10 - Alcohol dependence with unspecified alcohol-induced disorder Alcohol withdrawal Qualifiers: Complication of substance-induced condition: uncomplicated Qualified Code(s): F 10 - Alcohol use, unspecified with withdrawal, uncomplicated
[2025-01-28] MEDS: SODIUM CHLORIDE 0.9% 1,000 ML IV ONE (12:30)
[2025-01-28 12:38] LABS: Appearance Urine Clear (Clear); Bacteria Urine Automated None Seen (None Seen); Cast Urine Automated 0-2 /lpf (0-2); Glucose Urine UA Negative (Negative); RBC Urine Automated 0-2 /hpf (0-2); WBC Urine Automated 0-5 /hpf (0-5)
[2025-01-28] MEDS: THIAMINE HCL 100 MG in SYRINGE 9 ML IV STA (12:51)
[2025-01-28 12:52] LABS: Alanine Aminotransferase 76.0 U/L (7-52); Alkaline Phosphatase 29.0 U/L (34-104); Anion Gap 9.0 (3-11); Bilirubin,Total 0.6 mg/dl (0.2-1.0); Blood Urea Nitrogen 9.0 mg/dl (6-23); Calcium 8.7 mg/dl (8.6-10.3); Carbon Dioxide 24.0 mmol/L (21-32); Chloride 104.0 mmol/L (98-107); Creatine Kinase 76.0 U/L (26-192); Creatinine Clr Calc Pharmacy 112.5 ml/min; Glucose 95.0 mg/dl (70-99(Fasting)); Lipase 7.0 U/L (11-82); Magnesium 2.0 mg/dl (1.7-2.4); Potassium 4.1 mmol/L (3.5-5.1); Sodium 137.0 mmol/L (136-145); Total Protein 7.0 gm/dl (6.0-8.3)
[2025-01-28 12:53] LABS: Hematocrit (blood only) 36.6 % (37.0-47.0); Hemoglobin 12.4 g/dl (12.0-16.0); Mean Corpuscular Hemoglobin 31.6 pg (25.0-34.0); Mean Corpuscular Volume 93.1 fL (80.0-100.0); Platelet Count 124 K/uL (130-400); RDW Standard Deviation 43.0 fL (36.4-46.3); Red Blood Count 3.93 M/uL (4.20-5.40); White Blood Count 3.89 K/ul (4.8-10.8)
[2025-01-28 12:54] LABS: Immature Granulocytes # (auto) 0.01 K/uL (0.01-0.20); Immature Granulocytes % (auto) 0.3 %; Stomatocytes 1+
[2025-01-28 13:07] LABS: Thyroid Stimulating Hormone 0.768 uIu/ml (0.300-4.500)
[2025-01-28 13:11] LABS: Amphetamines+Metham, Urine Neg (Neg); MDMA (Ecstacy), Urine Neg (Neg); Marijuana, Urine Neg (Neg)
[2025-01-28] MEDS ORDERED: PHENobarbital PO Alcohol Withdrawal PO STA (14:05)
[2025-01-28] MEDS ORDERED: MAGNESIUM HYDROXIDE SUSP 30 ML UDC PO PRN (14:10)
[2025-01-28] MEDS ORDERED: ALUMINUM/MAGNESIUM SUSP 30 ML UDC PO PRN (14:10)
[2025-01-28] MEDS ORDERED: POLYETHYLENE (MIRALAX) 17 GM PACK PO PRN (14:10)
[2025-01-28] MEDS ORDERED: ONDANSETRON INJ 2 MG/ML 2 ML VIAL IV PRN (14:10)
[2025-01-28] MEDS ORDERED: ACETAMINOPHEN 325 MG TAB PO PRN (14:10)
[2025-01-28] MEDS: PHENOBARBITAL SODIUM IV STA (15:25)
[2025-01-28] MEDS: SODIUM CHLORIDE 0.9% IV STA (15:25)
[2025-01-28] MEDS ORDERED: PHENobarbitaL sodium 130 MG in SYRINGE 0 ML IV ONE (16:10)
--- NOTE | 2025-01-28 16:32 | History & Physical Report ---
Date of Service January 28, 2025 Assessment & Plan (1) Alcohol withdrawal with inpatient treatment: (2) Alcohol use disorder: (3) Chronic prescription benzodiazepine use: (4) Anxiety: Plan 44-year-old woman with alcohol use disorder and chronic prescription benzodiazepine use who presents for alcohol withdrawal requesting detox in the ED she was already in mild withdrawal despite BAL of 191, she did not appear intoxicated. She did have mild tremor and tachycardia. based on previous episodes of withdrawal which required inpatient treatment, and her inability to tolerate oral intake because of persistent nausea and vomiting she will be admitted for inpatient detox in the hospital # Acute alcohol withdrawal IV phenobarbital loading dose 6 mg/kg x 1. After that oral phenobarbital taper per protocol monitor DHARMESH S may need a few IM doses if withdrawals not controlled, last admission needed 65 mg x 2 continue her gabapentin which she uses as needed for anxiety but increased to 3 times daily as needed antiemetics, IV fluids supplement thiamine folate and multivitamin a.m. CBC and CMP as well as magnesium # severe alcohol use disordershe intends to quit, recently she attempted to use Vivitrol but had side effects. She may resume oral naltrexone, will discuss further as clinical course evolves # benzodiazepine dependencecurrent dosing is alprazolam 0.5 mg at bedtime, dosing escalated over the past week as she was attempting to manage withdrawal symptoms. She wishes to come off benzodiazepine as well as alcohol. Same treatment as above, I did warn her that sometimes benzodiazepine withdrawal can be prolonged. if we need more than gabapentin for anxiety symptoms Seroquel and hydroxyzine are good options # lab abnormalities of mildly elevated AST, ALT as well as leukopenia and thrombocytopenia are related to the toxicities of alcohol - expect normalization with cessation DVT prophylaxisstart with SCDs, if hospitalization is prolonged would start enoxaparin History of Present Illness Chief Complaint: Alcohol withdrawal Primary Care Provider: Jair Cui, 44-year-old woman with history of anxiety and alcohol use disorder came into the ED with alcohol withdrawal requesting detox. She has been on a conner recently and has been attempting to stop drinking by tapering down, however, this has not been working and she has been having severe frequent nausea vomiting and unable to keep anything down. She does normally take alprazolam at at bedtime for anxiety but has been taking more than usual for the last several days as she has been attempting to manage the alcohol withdrawal. She also wants to detox from the benzodiazepine. She was seen in the ED the last 2 consecutive days and was advised to be admitted for detox yesterday but returned home. This is mainly because of personal issues including trying to hold on multiple jobs. She has not had any abdominal pain hematemesis or bloody stool. Otherwise she has physically been doing ok. She was treated here in November of this year detoxed with phenobarbital which went very smoothly. After that she was on Vivitrol injection however she had constant nausea and vomiting and headache after that for several weeks feels she just cannot tolerate it. Allergies Allergy/AdvReac Type Severity Reaction Status Date / Time hornet venom Allergy Severe Anaphylaxis Verified 01/28/25 14:59 Home Medications Medication Instructions Recorded Confirmed Type multivitamin 1 tab PO DAILY 05/10/24 01/28/25 History ondansetron HCl 4 mg tablet 4 mg PO DAILY PRN Nausea 30 days 12/01/24 01/28/25 Rx #20 tabs alprazolam 0.5 mg tablet,extended 0.5 mg PO HS #30 tabs 01/21/25 01/28/25 Rx release 24 hr citalopram 10 mg tablet 10 mg PO HS 01/26/25 01/28/25 History gabapentin 100 mg capsule 200 mg PO BID PRN anxiety 01/26/25 01/28/25 History epinephrine 0.3 mg/0.3 mL 0.3 mg IM DIRECTED PRN Allergic 01/28/25 01/28/25 History injection, auto-injector (EpiPen) Reaction fluoxetine 10 mg capsule 10 mg PO HS 01/28/25 01/28/25 History Past Med/Surg History Problem List Benzodiazepine abuse (Acute) Alcohol dependence (Acute) Alcohol intoxication (Acute) Dense breast tissue Lump of right breast Hx of herpes genitalis Hx of drug abuse Hx drug and alcohol abuse. Medical History Alcohol withdrawal with inpatient treatment Chronic prescription benzodiazepine use Alcohol use disorder Anxiety Open wound of second toe of left foot Cellulitis of second toe of left foot Hx of cold sores Somatic dysfunction of pelvic region Somatic dysfunction of lumbar region Somatic dysfunction of thoracic region Somatic dysfunction of cervical region Somatic dysfunction of rib Withdrawal syndrome Intentional overdose Surgical History History of oral surgery History of D&C Family History Sister Breast cancer Denies family history of Ovarian cancer Prostate cancer Myocardial infarction Colorectal cancer Social History Smoking Status: Never smoker Second Hand Exposure: No; Do You Dip or Chew Tobacco: No; Hx Alcohol Use: Yes Alcohol type: wine Hx Substance Use: Yes (drinking) Last Used Substance: Hours (ago) Last Used Substance Other:: xanax Substance Use Type Other:: benzo xanax Preferred Language: Qatari Communication Ability: Effective Visual Impairment: No Limitations Hearing Ability: Normal Geography Professor Required: No Beliefs That Will Affect Care: None marital status: Current Living Situation: Alone Current Living Situation Comment: Lives at home alone current occupational status: employed 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 How many Children do You have: 0 Feels Safe at Home: Yes Childhood Exposure to Second-Hand Smoke: No Diet: regular caffeine: Yes during the past year weight has: remained stable Dental Care, Regularly: Yes Physical Activity Frequency: Daily Seatbelt Use: always Sunscreen Use: Yes Do you think of yourself as: straight/heterosexual Sexual Activity: has been sexually active within the last 12 months Gender Identity: Female Assistive Devices: None Review of Systems 2 Review of Systems: All systems reviewed & are unremarkable except as noted in HPI & below Physical Exam 2 Physical Exam: Last 24h vitals reviewed GEN: no acute distress, sitting in bed HEENT: pupils equal, sclerae anicteric, moist MM RESP: normal WOB, CTAB CV: reg no mrg ABD: soft/nt/nd +BT : no gregory SKIN: warm and dry, no generalized rashes NEURO: Anxious appearing. Pleasant/cooperative AOx person, place, and situation. Face symmetric, speech normal, moves 4 ext spontaneously and equally. No tremor or diaphoresis currently though is fci through a loading dose of phenobarbital. Results & Data Results & Data Vital Signs (Past 12 Hours) Vital Signs Temp Pulse Pulse Resp BP BP Pulse Ox 01/28/25 16:00 85 21 129/84 94 01/28/25 15:31 36.5 C 84 24 127/80 94 01/28/25 15:31 84 24 96 01/28/25 15:25 81 24 126/80 01/28/25 13:30 78 21 121/86 94 01/28/25 12:38 86 01/28/25 12:33 94 01/28/25 11:44 36.7 C 106 H 18 145/95 H 97 O2 Del Method 01/28/25 16:00 Room Air 01/28/25 15:31 Room Air 01/28/25 15:31 Room Air 01/28/25 15:25 01/28/25 13:30 Room Air 01/28/25 12:38 01/28/25 12:33 Nasal Cannula 01/28/25 11:44 Room Air Laboratory Results 01/28/25 12:21 01/28/25 12:21 I reviewed her previous labs and she does have a longstanding mild leukopenia but the thrombocytopenia is new bilirubin is normal at 0.6, AST/ALT mildly elevated at 63 and 76. Lipase is 7. Blood alcohol level was 191, U tox was positive only for benzodiazepines. Urinalysis was negative ECG Additional Comments: I personally reviewed the EKG tracing and it shows sinus tachycardia with an incomplete right bundle amy block Code Status & VTE Plan VTE Prophylaxis Plan VTE Prophylaxis will be ordered: Yes PG Care Time/CCT Total # of Minutes Spent Total Time Spent with Patient: Total time spent is greater than 50% in coordination of care (as documented) at patient's floor/unit and/or counseling patient: Coding Level of Care Code 43948 INT INP/OBS CARE 3/75MIN Diagnoses Alcohol withdrawal with inpatient treatment F10.939 Alcohol use disorder F10.90 Chronic prescription benzodiazepine use Z79.899 Anxiety F41.9
[2025-01-28] MEDS: CITALOPRAM 20 MG TAB PO SCH (22:21)
[2025-01-28] MEDS: GABAPENTIN 100 MG CAP PO PRN (22:25)
[2025-01-29 05:18] LABS: Alanine Aminotransferase 73.0 U/L (7-52); Albumin Globulin Ratio 1.9 (0.9-2); Alkaline Phosphatase 26.0 U/L (34-104); Anion Gap 5.0 (3-11); Bilirubin,Total 0.7 mg/dl (0.2-1.0); Blood Urea Nitrogen 12.0 mg/dl (6-23); Calcium 8.1 mg/dl (8.6-10.3); Carbon Dioxide 27.0 mmol/L (21-32); Chloride 105.0 mmol/L (98-107); Creatinine Clr Calc Pharmacy 91.7 ml/min; Globulin 2.0 gm/dl (2.5-4.0); Glucose 89.0 mg/dl (70-99(Fasting)); Magnesium 1.8 mg/dl (1.7-2.4); Potassium 3.8 mmol/L (3.5-5.1); Sodium 137.0 mmol/L (136-145); Total Protein 5.7 gm/dl (6.0-8.3)
[2025-01-29] MEDS: MULTIVITAMIN TAB PO SCH (08:23)
[2025-01-29] MEDS: FOLIC ACID 1 MG TAB PO SCH (08:23)
[2025-01-29] MEDS: THIAMINE HCL 100 MG TAB PO SCH (08:23)
--- NOTE | 2025-01-29 09:15 | Hospitalist Progress Note ---
Date of Service January 29, 2025 Assessment & Plan (1) Alcohol withdrawal with inpatient treatment: (2) Alcohol use disorder: (3) Chronic prescription benzodiazepine use: (4) Anxiety: Plan 44-year-old woman with alcohol use disorder and chronic prescription benzodiazepine use who presents for alcohol withdrawal requesting detox in the ED she was already in mild withdrawal despite BAL of 191, she did not appear intoxicated. She did have mild tremor and tachycardia. based on previous episodes of withdrawal which required inpatient treatment, and her inability to tolerate oral intake because of persistent nausea and vomiting she will be admitted for inpatient detox in the hospital # Acute alcohol withdrawal IV phenobarbital loading dose 6 mg/kg x 1 given in ED - Continue oral phenobarbital taper per protocol monitor AWSS has not needed any PRN doses continue her gabapentin which she uses as needed for anxiety but increased to 3 times daily as needed antiemetics PRN supplement thiamine folate and multivitamin doing very well, transfer to medical unit # severe alcohol use disordershe intends to quit, recently she attempted to use Vivitrol but had side effects. She may resume oral naltrexone, will discuss further as clinical course evolves # benzodiazepine dependencecurrent dosing is alprazolam 0.5 mg at bedtime, dosing escalated over the past week as she was attempting to manage withdrawal symptoms. She wishes to come off benzodiazepine as well as alcohol. Same treatment as above, I did warn her that sometimes benzodiazepine withdrawal can be prolonged. if we need more than gabapentin for anxiety symptoms Seroquel and hydroxyzine are good options # lab abnormalities of mildly elevated AST, ALT as well as leukopenia and thrombocytopenia are related to the toxicities of alcohol - expect normalization with cessation DVT prophylaxisstart with SCDs, if hospitalization is prolonged would start enoxaparin. ambulate Admission and Anticipated Discharge Date Admission Date: January 28, 2025 Subjective Doing much better. No headache or hallucinations AWSS 0-2 scored for anxiety No tremor or diaphoresis at this time No abdominal pain or vomiting, small BM, tolerating po and no more vomiting Physical Exam 2 Physical Exam: Last 24h vitals reviewed GEN: looks great, awake sitting up in bed HEENT: pupils equal, sclerae anicteric, moist MM RESP: normal WOB, CTAB CV: reg no mrg ABD: soft/nt/nd +BT : no gregory SKIN: warm and dry, no generalized rashes NEURO: Calm appearing, no diaphoresis, AOx4 Results & Data Results & Data Vital Signs (Past 12 Hours) Vital Signs Temp Pulse Pulse Resp BP BP Pulse Ox 01/29/25 08:00 59 L 01/29/25 07:42 36.6 C 01/29/25 07:00 139/83 01/29/25 07:00 63 16 94 01/29/25 06:00 126/79 01/29/25 06:00 66 21 96 01/29/25 05:00 124/81 01/29/25 05:00 62 21 96 01/29/25 04:00 62 19 119/84 96 01/29/25 03:00 125/86 01/29/25 03:00 69 22 95 01/29/25 02:12 59 L 15 94 01/29/25 02:05 123/84 01/29/25 01:57 61 17 01/29/25 01:03 68 20 96 01/29/25 01:00 117/78 01/29/25 00:45 70 17 95 01/29/25 00:15 64 22 94 01/29/25 00:00 124/77 01/29/25 00:00 66 01/28/25 23:54 67 21 94 01/28/25 23:02 120/76 01/28/25 23:00 67 22 96 01/28/25 22:20 36.9 C 70 18 126/82 96 01/28/25 22:00 81 19 96 O2 Del Method 01/29/25 08:00 01/29/25 07:42 01/29/25 07:00 01/29/25 07:00 Room Air 01/29/25 06:00 01/29/25 06:00 01/29/25 05:00 01/29/25 05:00 01/29/25 04:00 01/29/25 03:00 01/29/25 03:00 01/29/25 02:12 01/29/25 02:05 01/29/25 01:57 01/29/25 01:03 01/29/25 01:00 01/29/25 00:45 01/29/25 00:15 01/29/25 00:00 01/29/25 00:00 01/28/25 23:54 01/28/25 23:02 01/28/25 23:00 01/28/25 22:20 Room Air 01/28/25 22:00 Laboratory Results 01/28/25 12:21 01/29/25 04:39 PG Care Time/CCT Total # of Minutes Spent Total Time Spent with Patient: Total time spent is greater than 50% in coordination of care (as documented) at patient's floor/unit and/or counseling patient: Coding Level of Care Code 83081 SUB INP/OBS CARE 3/50MIN Diagnoses Alcohol withdrawal with inpatient treatment F10.939 Alcohol use disorder F10.90 Chronic prescription benzodiazepine use Z79.899 Anxiety F41.9
[2025-01-29] MEDS ORDERED: LOPERAMIDE HCL 2 MG CAP PO PRN (09:17)
[2025-01-29] MEDS: KETOROLAC TROMETHAMINE 15 MG/ML VIAL IV ONE (10:01)
[2025-01-29] MEDS: DICYCLOMINE HCL 10 MG CAP PO PRN (12:27)
[2025-01-29] MEDS: MELATONIN 3 MG TAB PO PRN (20:45)
[2025-01-30 11:59] VITALS: BP 135/82; PULSE 72; RESP 18; TEMP 97.9; O2SAT 96
--- NOTE | 2025-01-30 19:13 | Discharge Summary ---
Discharge Summary Date of Service January 30, 2025 Principal Dx & Hospital Course #1 = Principal Diagnosis (1) Alcohol withdrawal with inpatient treatment: (2) Alcohol use disorder: (3) Chronic prescription benzodiazepine use: (4) Anxiety: Plan 44-year-old woman with alcohol use disorder and chronic prescription benzodiazepine use who presents for alcohol withdrawal requesting detox in the ED she was already in mild withdrawal despite BAL of 191, she did not appear intoxicated. She did have mild tremor and tachycardia. based on previous episodes of withdrawal which required inpatient treatment, and her inability to tolerate oral intake because of persistent nausea and vomiting she will be admitted for inpatient detox in the hospital # Acute alcohol withdrawal treated with IV phenobarbital 6 mg/kg loading dose then oral taper. Did not need PRN doses. Doing extremely well with symptoms and discharged home to complete oral phenobarbital taper. I called her pharmacy to confirm availability. # severe alcohol use disordershe intends to quit, recently she attempted to use Vivitrol but had side effects. She will resume oral naltrexone, but increase the dose slowly to avoid side effects - she plans to go to more support group meetings and get a sponsor. encouraged this. she has been to inpatient rehab more than once and not interested in that at this time - discussed other strategies - building new habits like walking her pets or starting to run again # benzodiazepine dependencecurrent dosing is alprazolam 0.5 mg at bedtime, dosing escalated over the past week as she was attempting to manage withdrawal symptoms. She wishes to come off benzodiazepine as well as alcohol. Same treatment as above, I did warn her that sometimes benzodiazepine withdrawal can be prolonged. gabapentin and hydroxyzine will be helpful with mild ongoing symptoms and with anxiety. She will continue citalopram for anxiety - dose can be increased defer to outpatient setting # lab abnormalities of mildly elevated AST, ALT as well as leukopenia and thrombocytopenia are related to the toxicities of alcohol - expect normalization with cessation Notes For Next Care Provider ran out of alprazolam but intends to stop taking it consider increasing citalopram Medication Changes From Visit complete short oral phenobarbital taper for EtOH and Bzd withdrawal continue gabapentin Rx PRN bentyl and hydroxyzine Admission HPI Per Admitting Provider 44-year-old woman with history of anxiety and alcohol use disorder came into the ED with alcohol withdrawal requesting detox. She has been on a conner recently and has been attempting to stop drinking by tapering down, however, this has not been working and she has been having severe frequent nausea vomiting and unable to keep anything down. She does normally take alprazolam at at bedtime for anxiety but has been taking more than usual for the last several days as she has been attempting to manage the alcohol withdrawal. She also wants to detox from the benzodiazepine. She was seen in the ED the last 2 consecutive days and was advised to be admitted for detox yesterday but returned home. This is mainly because of personal issues including trying to hold on [employer]. She has not had any abdominal pain hematemesis or bloody stool. Otherwise she has physically been doing ok. She was treated here in November of this year detoxed with phenobarbital which went very smoothly. After that she was on Vivitrol injection however she had constant nausea and vomiting and headache after that for several weeks feels she just cannot tolerate it. Discharge Exam Last 24h vitals reviewed GEN: looks great, awake sitting up in bed HEENT: pupils equal, sclerae anicteric, moist MM RESP: normal WOB CV: ABD: ND : no gregory SKIN: warm and dry, no generalized rashes NEURO: Calm appearing, no diaphoresis, no tremor, AOx4 Discharge Plan Discharge Items Patient Disposition: Home - Self-Care Reason For Visit: ALCOHOL INTOXICATION Discharge Diagnosis: Alcohol withdrawal Condition on Discharge: Good Activity: Resume your previous activity Non-emergency contact: Primary Care Provider Call non-emergency contact if: you have any medication questions and your symptoms worsen Follow-up/Referrals: Jair Cui, [Primary Care Provider] - Diet: Regular Addtl Attending Provider Instructions: Take dose of phenobarbital tonight, Friday morning, Friday morning Avoid alcohol and benzodiazepines. Gabapentin can be helpful for any residual withdrawal symptoms or anxiety, as can hydroxyzine. Dicyclomine (bentyl) as needed for abdominal cramps All of these medications can be sedating, do not drive Increasing the frequency of your meetings is a good idea to help you stay on t rack It was a pleasure taking care of you in the hospital, Obdulia Ovalle MD Pending Studies at Discharge: No Stand-Alone Forms: [facility], Work/School Release, Smoking Cessation Medications and DC Order Prescriptions: New dicyclomine 10 mg Capsule 10 mg PO Q4H PRN (Reason: abdominal pain) Qty: 12 0RF hydroxyzine HCl 25 mg tablet 25 mg PO Q8H PRN (Reason: anxiety) Qty: 30 0RF phenobarbital 20 mg/5 mL (4 mg/mL) elixir See Rx Instructions .ROUTE .COMPLEX Qty: 22.5 0RF Rx Instructions: 30 mg po evening of 01/30, AM of 01/31, AM of 02/01 then stop Continued multivitamin Tablet 1 tab PO DAILY ondansetron HCl 4 mg tablet 4 mg PO DAILY PRN (Reason: Nausea) 30 Days Qty: 20 0RF citalopram 10 mg Tablet 10 mg PO HS gabapentin 100 mg capsule 200 mg PO BID PRN (Reason: anxiety) Rx Instructions: Do not fill scripts early epinephrine [EpiPen] 0.3 mg/0.3 mL Auto-Injector 0.3 mg IM DIRECTED PRN (Reason: Allergic Reaction) Held fluoxetine 10 mg capsule 10 mg PO HS Hold Instructions: Resume on 02/27/25. Take either fluoxetine OR citalopram - don't take both at the same time Rx Instructions: ON EXT MED HX--LAST FILLED 12/15/24 FOR 90 DAYS/90 TABS, PT NOT SURE IF TAKING. Discontinued alprazolam 0.5 mg tablet extended release 24 hr 0.5 mg PO HS Qty: 30 0RF Discharge Orders: Discharge Order (Routine); Ordered 01/30/25 Ordered By: Obdulia Pineda/Other Patient Handouts: Hydroxyzine Oral Tablet, Dicyclomine Oral Capsule, Phenobarbital Oral Tablet, Alcohol Withdrawal: What to Expect, Addiction Recovery Counseling, Addiction Recovery Relapse Admission Data Admit Date/Time: 01/28/25 14:10 Attending Provider: Obdulia Ovalle Admit Provider: Obdulia Ovalle Primary Care Provider: Jair Cui Other Providers: Miguelito Morin Other Interventions: Discharge Summary Assessment (RN) Last Done: 01/30/25 12:55 Hospital Stay Data Consultations 01/28/25 13:25 ED Decision to Admit Stat Pending Results Patient Have Any Pending Studies at Discharge: No Discharge Instructions Given to Patient (Per Discharging Provider) Take dose of phenobarbital tonight, Friday morning, Friday morning Avoid alcohol and benzodiazepines. Gabapentin can be helpful for any residual withdrawal symptoms or anxiety, as can hydroxyzine. Dicyclomine (bentyl) as needed for abdominal cramps All of these medications can be sedating, do not drive Increasing the frequency of your meetings is a good idea to help you stay on track It was a pleasure taking care of you in the hospital, Obdulia Ovalle MD Total Time Total Time Spent Total Time Spent (In Minutes): I personally spent: 35 minutes today on clinical care activities including: reviewing chart notes and vital signs examining and counseling the patient calling pharmacy writing orders writing prescriptions, discharge instructions documentation Coding Level of Care Code 91596 INP/OBS DISCH >30 MIN Diagnoses Alcohol withdrawal with inpatient treatment F10.939 Alcohol use disorder F10.90 Chronic prescription benzodiazepine use Z79.899 Anxiety F41.9
[2025-02-01 10:51] LABS: 7-Aminoclonaz, Confirm NEGATIVE ng/mL (<25); Hydro-Alp Ur, GC/MS 80 ng/mL (<25); Hydroxyethylflurazepam, Conf NEGATIVE ng/mL (<50); Hydroxymidazolam Ur, GC/MS NEGATIVE ng/mL (<50); Lorazepam, Ur GC/MS NEGATIVE ng/mL (<50); Nordiazepam, Confirm NEGATIVE ng/mL (<50); Oxazepam Ur, GC/MS NEGATIVE ng/mL (<50); Temazepam, Confirm NEGATIVE ng/mL (<50)
== END 2025-01-30 13:27 | disposition home or self-care (01) | DRG 897 ==
LOC: SUATTDRO → ED 11:41 → EDINP 14:10 → 1E 19:50 → 2N 01-29 16:40

== ENCOUNTER 2025-02-13 12:38 | Observation (INO) ==
--- NOTE | 2025-02-13 13:19 | Emergency Department Note ---
Impression & Plan Alcohol dependence, Alcohol withdrawal ED Provider Note CHIEF COMPLAINT: Alcohol withdrawl HISTORY OF PRESENTING ILLNESS: Patient is a 44-year-old female presents to the emergency department today for complaints of alcohol withdrawal. She is interested in looking at rehab after hospital discharge. Her last drink was 2 hours ago which was 2 bottles of wine. She does chronically use benzodiazepines but has not used them today. She has a history of withdraw seizures and tremors however on obtaining a history from her she states "I will not answer if I have seizures, it will get me in trouble". She has been to inpatient rehab centers before about 5 years ago. She denies chest pain, sob, breathing difficulties, abdominal pain, headache, fevers/chills, blood in stool or urine, any recent illness, or any recent travel. REVIEW OF SYSTEMS: See HPI for pertinent positives and pertinent negatives. ALLERGIES: See below MEDICATIONS: See below PAST MEDICAL HISTORY: See below PHYSICAL EXAM: VITALS: Vitals are noted on the nurses note and reviewed by myself.Vital signs stable. GENERAL: 74-year-old female, in no acute distress, nondiaphoretic, well- developed well-nourished.The patient is visibly intoxicated but alert. SKIN: The skin was without obvious lacerations, abrasions, or rashes.There is no tenting of the skin.Capillary reflex less than 2 seconds. HEENT: Normocephalic, atraumatic.PERRLA.EOMI.Conjunctiva with mild injection without icterus.Tympanic membranes without erythema or effusion bilaterally no hemotympanum.External auditory canals are clear.Nares patent bilaterally.No epistaxis.Oropharynx without erythema or exudate.Uvula midline.Oral mucosal moist.No lymphadenopathy.Neck is supple without cervical spine tenderness. HEART: Regular rate and rhythm without murmurs gallops or rubs.Peripheral pulses 2+. LUNGS: Clear to auscultation bilaterally without wheezes, rales or rhonchi. ABDOMEN: Positive bowel sounds x 4.Normal tympanic percussion.Soft, nontender, without masses or organomegaly. MUSCULOSKELETAL: Gross motor function of the upper and lower extremities intact. NEUROLOGIC:The patient is visibly intoxicated but awake and able to conversation and answer questions appropriately. DIFFERENTIAL DIAGNOSIS: Alcohol withdrawal, suicidal ideations, psychosis, anxiety, depression, among others. ED COURSE AND MEDICAL DECISION MAKING: HISTORY FROM INDEPENDENT HISTORIAN: History was provided by the patient and a family member at bedside. MONITOR: Continuous school lunch monitor: Order was placed for continuous school lunch monitor. Patient was placed on the school lunch monitor and continuous pulse ox. Patient was noted to be in normal sinus rhythm at an initial rate of 102 bpm per my interpretation. EKG: EKG was interpreted by myself as normal sinus rhythm with an incomplete right bundle branch block at a rate of 100 bpm. INTERPRETATION OF LABS: I interpreted the labs with full lab results as below in the lab section of this note. Laboratory results pertinent to the emergent complaint are discussed in the MDM section below. The patient was advised to follow up with their PCP and/or specialist(s) for further outpatient monitoring and management of any abnormal results. CHRONIC MEDICAL/SOCIAL CONDITIONS AFFECTING CARE: No social concerns were identified as barriers to patients care. EXTERNAL RECORDS REVIEWED: Patients previous ED and inpatient records from 01/28/2025 and 01/29/2025. ESCALATION OF CARE CONSIDERED: I considered admission on this patient for alcohol withdraw. CONSULTATIONS: I also spoke with ED pharmacist October, about use of phenobarbital and dosing as the patient had used that at her previous admission. I spoke with Dr. Brissa Rosales who accepts the patient for admission. SUMMARY: I examined the patient for complaints of alcohol withdrawal. A physical exam and history were performed. Nursing notes, EMR, and medication list were personally reviewed. CBC showed no leukocytosis, anemia, thrombocytopenia. PT/INR and APTT were normal. CMP showed no emergent findings. AST and ALT were normal. Urinalysis did show +2 leukocytes, white blood cells, and epithelial cells with +2 bacteria likely contaminated. The patient does have no signs or symptoms of urinary complaints. UDS was negative. Medical alcohol was 256. AWSS was 5. The patient was given thiamine 100 mg p.o. IV, folic acid 1 mg p.o., Ativan 1 mg IV, Zofran 4 mg. I did consult with Dr. Brissa Rosales who accepts the patient for admission to the hospital. Care was transferred at this time. DIAGNOSIS: Alcohol withdrawal TREATMENT PLAN/DISCHARGE INSTRUCTIONS: Admit to hospitalist services Past Med/Surg History Problem List Alcohol withdrawal (Acute) Alcohol dependence (Acute) Dense breast tissue Lump of right breast Hx of herpes genitalis Hx of drug abuse Hx drug and alcohol abuse. Medical History Alcohol withdrawal with inpatient treatment Chronic prescription benzodiazepine use Alcohol use disorder Anxiety Open wound of second toe of left foot Cellulitis of second toe of left foot Hx of cold sores Somatic dysfunction of pelvic region Somatic dysfunction of lumbar region Somatic dysfunction of thoracic region Somatic dysfunction of cervical region Somatic dysfunction of rib Withdrawal syndrome Intentional overdose Surgical History History of oral surgery History of D&C Family History Sister Breast cancer Denies family history of Ovarian cancer Prostate cancer Myocardial infarction Colorectal cancer Social History Smoking Status: Smoker, status unknown Second Hand Exposure: No; Do You Dip or Chew Tobacco: No; Tobacco Cessation Education Requested by Patient: No Hx Alcohol Use: Yes Alcohol type: wine Hx Substance Use: No Preferred Language: Portuguese Communication Ability: Effective Visual Impairment: No Limitations Hearing Ability: Normal Maintainer Plant Required: No Beliefs That Will Affect Care: None marital status: Current Living Situation: Alone Current Living Situation Comment: Lives at home alone current occupational status: employed 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 How many Children do You have: 0 Other Information That Helps Us Care for You: No Feels Safe at Home: Yes Safety Concerns: Feels Safe At This Time Childhood Exposure to Second-Hand Smoke: No Diet: regular caffeine: Yes during the past year weight has: remained stable Dental Care, Regularly: Yes Physical Activity Frequency: Daily Seatbelt Use: always Sunscreen Use: Yes Do you think of yourself as: straight/heterosexual Sexual Activity: has been sexually active within the last 12 months Gender Identity: Female Assistive Devices: None Allergies Allergies Allergy/AdvReac Type Severity Reaction Status Date / Time hornet venom Allergy Severe Anaphylaxis Verified 01/28/25 14:59 Home Meds Home Medications Medication Instructions Recorded Confirmed multivitamin 1 tab PO DAILY 05/10/24 02/01/25 gabapentin 100 mg capsule 200 mg PO BID PRN anxiety 01/26/25 02/01/25 epinephrine 0.3 mg/0.3 mL 0.3 mg IM DIRECTED PRN Allergic 01/28/25 02/01/25 injection, auto-injector (EpiPen) Reaction fluoxetine 10 mg capsule 10 mg PO HS 01/28/25 02/01/25 Previous Rx's Medication Instructions Recorded ondansetron HCl 4 mg tablet 4 mg PO DAILY PRN Nausea 30 days 12/01/24 #20 tabs dicyclomine 10 mg capsule 10 mg PO Q4H PRN abdominal pain 01/30/25 #12 caps hydroxyzine HCl 25 mg tablet 25 mg PO Q8H PRN anxiety #30 tabs 01/30/25 Results & Data (ED) Vital Signs Vital Signs - 24 hr 02/13/25 12:48 02/13/25 13:04 02/13/25 13:06 Temperature 36.6 C Temperature Source Temporal Artery Scan Pulse Rate 111 H 99 H Pulse Rate [Apical] Pulse Rhythm [Apical] Pulse Strength [Apical] Respiratory Rate 20 Respiratory Effort / Characteristics Non-Labored Spontaneous Respiratory Depth Normal Respiratory Pattern Regular Blood Pressure 138/93 Blood Pressure [Right Arm] Blood Pressure Mean 108 Blood Pressure Mean [Right Arm] Blood Pressure Position [Right Arm] Pulse Oximetry 93 93 Oxygen Delivery Method Room Air Room Air Sepsis Recent Fever Within 48 Hours No Sepsis New/Unexplained Change in Mental Status N/A Sepsis Action Taken by Nursing No Action Required 02/13/25 13:06 02/13/25 15:00 Temperature Temperature Source Pulse Rate Pulse Rate [Apical] 101 H 84 Pulse Rhythm [Apical] Regular Regular Pulse Strength [Apical] Normal Normal Respiratory Rate 18 20 Respiratory Effort / Characteristics Non-Labored Spontaneous Non-Labored Spontaneous Respiratory Depth Normal Normal Respiratory Pattern Regular Regular Blood Pressure Blood Pressure [Right Arm] 127/86 132/78 Blood Pressure Mean Blood Pressure Mean [Right Arm] 99 96 Blood Pressure Position [Right Arm] Lying Lying Pulse Oximetry 95 98 Oxygen Delivery Method Room Air Room Air Sepsis Recent Fever Within 48 Hours Sepsis New/Unexplained Change in Mental Status Sepsis Action Taken by Nursing Laboratory Data 02/14/25 05:42 02/14/25 05:42 Lab Results 02/13/25 02/13/25 Range/Units 13:25 13:31 WBC 7.37 (4.8-10.8) K/ul RBC 4.42 (4.20-5.40) M/uL Hgb 14.0 (12.0-16.0) g/dl Hct 40.9 (37.0-47.0) % MCV 92.5 (80.0-100.0) fL MCH 31.7 (25.0-34.0) pg MCHC 34.2 (32.0-36.0) g/dL RDW Std Deviation 42.2 (36.4-46.3) fL RDW Coeff of Zahraa 12.3 (11.5-14.5) % Plt Count 266 (130-400) K/uL MPV 9.7 (9.4-12.4) fL Immature Gran % (Auto) 0.3 % Neut % (Auto) 70.6 % Lymph % (Auto) 21.6 % [place] % (Auto) 4.7 % Eos % (Auto) 2.4 % Baso % (Auto) 0.4 % Neut # (Auto) 5.20 (1.40-6.50) K/uL Lymph # (Auto) 1.59 (1.20-3.40) K/uL [place] # (Auto) 0.35 (0.11-0.59) K/uL Eos # (Auto) 0.18 (0.00-0.50) K/uL Baso # (Auto) 0.03 (0.00-0.20) K/uL Immature Gran # (Auto) 0.02 (0.01-0.20) K/uL PT 10.7 (9.0-12.0) Seconds INR 1.0 (0.9-1.1) APTT 25 (21-31) Seconds PTT Ratio 0.9 Sodium 140 (136-145) mmol/L Potassium 3.4 L (3.5-5.1) mmol/L Chloride 106 (98-107) mmol/L Carbon Dioxide 23 (21-32) mmol/L Anion Gap 11 (3-11) BUN 8 (6-23) mg/dl Creatinine 0.77 (0.6-1.2) mg/dl Est Cr Clr Drug Dosing 95.7 ml/min eGFR 96.88 BUN/Creatinine Ratio 10.4 (10-20) Glucose 133 H (70-99(Fasting)) mg/dl Calcium 9.1 (8.6-10.3) mg/dl Magnesium 2.1 (1.7-2.4) mg/dl Total Bilirubin 0.3 (0.2-1.0) mg/dl AST 17 (13-39) U/L ALT 23 (7-52) U/L Alkaline Phosphatase 31 L (34-104) U/L Total Protein 7.4 (6.0-8.3) gm/dl Albumin 4.3 (3.4-5.0) gm/dl Globulin 3.1 (2.5-4.0) gm/dl Albumin/Globulin Ratio 1.4 (0.9-2) Urine Color Yellow Urine Appearance Cloudy A (Clear) Urine pH 6.0 (4.5-7.5) Ur Specific [place] 1.003 (1.000-1.030) Urine Protein Negative (Negative) Urine Glucose (UA) Negative (Negative) Urine Ketones Negative (Negative) Urine Blood Negative (Negative) Urine Nitrite Negative (Negative) Urine Bilirubin Negative (Negative) Urine Urobilinogen Negative (Negative) Ur Leukocyte Esterase 2+ H (Negative) Urine WBC (Auto) 6-10 H (0-5) /hpf Urine RBC (Auto) 0-2 (0-2) /hpf U Hyaline Cast (Auto) 0-2 (0-2) /lpf U Epithel Cells (Auto) 11-20 H (0-2) /hpf Urine Bacteria (Auto) 2+ H (None Seen) Urine Comment Urine Opiates Screen Neg (Neg) Ur Methadone, Qual Neg (Neg) Urine Fentanyl Screen Neg (Neg) Urine Barbiturates Neg (Neg) Ur Phencyclidine (PCP) Neg (Neg) U Amphetamin/Meth Scrn Neg (Neg) MDMA (Ecstasy) Screen Neg (Neg) U Benzodiazepines Scrn Neg (Neg) Ur Cocaine Metabolite Neg (Neg) U Marijuana (THC) Screen Neg (Neg) Ethyl Alcohol mg/dL 256.0 H (<10.0) mg/dl Administered Medications Acetaminophen (Acetaminophen 325 Mg Tab) 650 mg PO Q4H PRN PRN Reason: Pain or Fever Stop: 03/15/25 16:56 Last Admin: 02/13/25 20:11 Dose: 650 mg Documented By: DOUG Chlordiazepoxide HCl (Chlordiazepoxide Hcl 25 Mg Cap) 50 mg PO Q6H LEXX Stop: 02/14/25 10:58 Last Admin: 02/14/25 04:30 Dose: 50 mg Documented By: Admin: 02/13/25 23:57 Dose: 50 mg Documented By: Admin: 02/13/25 17:27 Dose: 50 mg Documented By: ELAN Fluoxetine HCl (Fluoxetine Hcl 10 Mg Cap) 10 mg PO HS LEXX Stop: 03/15/25 20:59 Last Admin: 02/13/25 19:28 Dose: Not Given Documented By: DOUG Gabapentin (Gabapentin 100 Mg Cap) 200 mg PO BID PRN PRN Reason: anxiety Stop: 03/15/25 16:56 Last Admin: 02/13/25 19:32 Dose: 200 mg Documented By: DOUG Lactated Ringer's (Lr) 1,000 mls @ 125 mls/hr IV .Q8H LEXX Stop: 02/16/25 16:56 Last Admin: 02/14/25 01:39 Dose: 125 mls/hr Documented By: Infusion: 02/14/25 01:27 Dose: Infused Documented By: Admin: 02/13/25 17:27 Dose: 125 mls/hr Documented By: ELAN Lorazepam (Lorazepam 2 Mg/1 Ml Vial) 1 mg IV UD PRN; Protocol PRN Reason: EtOH Withdrawal AWSS Score 6,7 Stop: 03/15/25 16:56 Last Admin: 02/13/25 20:08 Dose: 1 mg Documented By: DOUG Discontinued Medications Folic Acid (Folic Acid 1 Mg Tab) 1 mg PO NOW STA Stop: 02/13/25 13:06 Last Admin: 02/13/25 13:37 Dose: 1 mg Documented By: MARISOL Thiamine HCl 100 mg/ Syringe 10 mls @ 2 mls/min IV NOW STA Stop: 02/13/25 13:09 Last Admin: 02/13/25 16:07 Dose: 2 mls/min Documented By: MARISOL Lorazepam (Lorazepam 2 Mg/1 Ml Vial) 1 mg IV NOW STA Stop: 02/13/25 13:06 Last Admin: 02/13/25 13:29 Dose: Not Given Documented By: MARISOL Lorazepam (Lorazepam 2 Mg/1 Ml Vial) 1 mg IV NOW STA Stop: 02/13/25 14:12 Last Admin: 02/13/25 14:36 Dose: 1 mg Documented By: MARISOL Ondansetron HCl (Ondansetron Inj 2 Mg/Ml 2 Ml Vial) 4 mg IV NOW STA Stop: 02/13/25 13:36 Last Admin: 02/13/25 14:35 Dose: 4 mg Documented By: MARISOL Discharge Plan Visit Data Chief Complaint: Detox Request Stated Complaint: DETOX ED Provider: Cem Salinas ED Midlevel Provider: Regina Mejia Discharge Problem: Alcohol dependence, Alcohol withdrawal Patient Disposition: Admitted As Inpatient Condition: Good Discharge Instructions Interventions: ED Discharge Assessment Last Done: 02/13/25 16:21
[2025-02-13] MEDS: FOLIC ACID 1 MG TAB PO STA (13:37)
[2025-02-13 13:40] LABS: Hematocrit (blood only) 40.9 % (37.0-47.0); Hemoglobin 14.0 g/dl (12.0-16.0); Immature Granulocytes # (auto) 0.02 K/uL (0.01-0.20); Immature Granulocytes % (auto) 0.3 %; Mean Corpuscular Hemoglobin 31.7 pg (25.0-34.0); Mean Corpuscular Volume 92.5 fL (80.0-100.0); Platelet Count 266 K/uL (130-400); RDW Standard Deviation 42.2 fL (36.4-46.3); Red Blood Count 4.42 M/uL (4.20-5.40); White Blood Count 7.37 K/ul (4.8-10.8)
[2025-02-13 13:55] LABS: Alanine Aminotransferase 23.0 U/L (7-52); Albumin Globulin Ratio 1.4 (0.9-2); Alkaline Phosphatase 31.0 U/L (34-104); Anion Gap 11.0 (3-11); Bilirubin,Total 0.3 mg/dl (0.2-1.0); Blood Urea Nitrogen 8.0 mg/dl (6-23); Calcium 9.1 mg/dl (8.6-10.3); Carbon Dioxide 23.0 mmol/L (21-32); Chloride 106.0 mmol/L (98-107); Creatinine Clr Calc Pharmacy 95.7 ml/min; Globulin 3.1 gm/dl (2.5-4.0); Glucose 133.0 mg/dl (70-99(Fasting)); Magnesium 2.1 mg/dl (1.7-2.4); Potassium 3.4 mmol/L (3.5-5.1); Sodium 140.0 mmol/L (136-145); Total Protein 7.4 gm/dl (6.0-8.3)
[2025-02-13 13:56] LABS: Appearance Urine Cloudy (Clear); Bacteria Urine Automated 2+ (None Seen); Cast Urine Automated 0-2 /lpf (0-2); Glucose Urine UA Negative (Negative); RBC Urine Automated 0-2 /hpf (0-2)
[2025-02-13 14:07] LABS: INR 1.0 (0.9-1.1); Partial Thromboplastin Time 25 Seconds (21-31); Prothrombin Time 10.7 Seconds (9.0-12.0)
[2025-02-13] MEDS: ONDANSETRON INJ 2 MG/ML 2 ML VIAL IV STA (14:35)
--- NOTE | 2025-02-13 14:47 | History & Physical Report ---
Date of Service February 13, 2025 Assessment & Plan (1) Alcohol withdrawal: (2) Alcohol dependence: Plan #Alcohol withdrawal - complicated: DTs, w/drawal seizure x1 episode - admit to tele - EtOH: 256 on admission - Alcohol withdrawal protocol - librium taper with PRN ativan - cont IVF - cont thiamine, folic acid, multivitamins - trend CMP, CBC #Severe alcohol use disorder - per previous documentation, she has tried vivitrol with side effects. She was trying Naltrexone, but has not used for couple of weeks as it makes her feel foggy and nauseous - she does not want to go to rehab, follows with AA #Chronic benzodiazepine use - UDS pending - pt takes alprazolam 0.5mg po nightly, will hold off while on librium taper - monitor for withdrawal - PDMP reviewed, no concerns #DVT ppx: SCDs for now, if prolonged hospitalization, then enoxaparin #Code status: Full code History of Present Illness Primary Care Provider: Jair Cui, DO 44 yo F with PMHx of alcohol use disorder, benzodiazepine use disorder, withdrawals complicated by DTs and single episode of seizures. Pt states that alcohol use disorder started when she was 40 years ago. 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 She has been trying to get her life back in order, but she is has not been able to be successful. She has had multiple admission for alcohol use disorder / withdrawal management. Pt stated that this round of problem started last Friday when she decided to drink wine. She was drinking about 8 glasses per day. She thought she could manage it on her own. However, after two days, she was unable to quit. She started having tremors and would keep drinking just enough to stop shaking. She also stopped eating and drinking fluids. Prior to this episode, she was not drinking for two weeks, which was since last discharge. She did mention a single episode of seizure about 4 years ago while she was a rehab. She stated that she was not being monitored well or being medicated, which led to this single seizure episode. She has not had any issues since then. She does not want to go to rehab at all. She does follow with AA and she has a sponsor. She spoke with her sponsor about 2-3 days ago. She also uses benzodiazepine, Xanax 0.5mg nightly. She states she was off of it for 2-3 weeks but started back up again about 1 week ago. Currently she has no new complaints. Allergies Allergy/AdvReac Type Severity Reaction Status Date / Time hornet venom Allergy Severe Anaphylaxis Verified 01/28/25 14:59 Home Medications Medication Instructions Recorded Confirmed Type multivitamin 1 tab PO DAILY 05/10/24 02/01/25 History ondansetron HCl 4 mg tablet 4 mg PO DAILY PRN Nausea 30 days 12/01/24 02/01/25 Rx #20 tabs gabapentin 100 mg capsule 200 mg PO BID PRN anxiety 01/26/25 02/01/25 History epinephrine 0.3 mg/0.3 mL 0.3 mg IM DIRECTED PRN Allergic 01/28/25 02/01/25 History injection, auto-injector (EpiPen) Reaction fluoxetine 10 mg capsule 10 mg PO HS 01/28/25 02/01/25 History dicyclomine 10 mg capsule 10 mg PO Q4H PRN abdominal pain 01/30/25 02/01/25 Rx #12 caps hydroxyzine HCl 25 mg tablet 25 mg PO Q8H PRN anxiety #30 tabs 01/30/25 02/01/25 Rx Past Med/Surg History Problem List Alcohol withdrawal (Acute) Alcohol dependence (Acute) Dense breast tissue Lump of right breast Hx of herpes genitalis Hx of drug abuse Hx drug and alcohol abuse. Medical History Alcohol withdrawal with inpatient treatment Chronic prescription benzodiazepine use Alcohol use disorder Anxiety Open wound of second toe of left foot Cellulitis of second toe of left foot Hx of cold sores Somatic dysfunction of pelvic region Somatic dysfunction of lumbar region Somatic dysfunction of thoracic region Somatic dysfunction of cervical region Somatic dysfunction of rib Withdrawal syndrome Intentional overdose Surgical History History of oral surgery History of D&C Family History Sister Breast cancer Denies family history of Ovarian cancer Prostate cancer Myocardial infarction Colorectal cancer Social History (Reviewed 02/13/25 @ 15:32 by SEGUN Mina Smoking Status: Smoker, status unknown Second Hand Exposure: No; Do You Dip or Chew Tobacco: No; Hx Alcohol Use: Yes Alcohol type: wine Hx Substance Use: No Preferred Language: Turkish Communication Ability: Effective Visual Impairment: No Limitations Hearing Ability: Normal Supervisory Aide Required: No Beliefs That Will Affect Care: None marital status: Current Living Situation: Alone Current Living Situation Comment: Lives at home alone current occupational status: employed 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 How many Children do You have: 0 Feels Safe at Home: Yes Childhood Exposure to Second-Hand Smoke: No Diet: regular caffeine: Yes during the past year weight has: remained stable Dental Care, Regularly: Yes Physical Activity Frequency: Daily Seatbelt Use: always Sunscreen Use: Yes Do you think of yourself as: straight/heterosexual Sexual Activity: has been sexually active within the last 12 months Gender Identity: Female Assistive Devices: None Review of Systems Review of Systems: Comprehensive ROS neg Physical Exam Physical Exam: Gen: no acute distress HEENT: NC/AT, red / swollen eyes Lungs: CTAB CVS: s1s2nl, RRR Abd: nl bowel sounds, soft, non-tender : no gregory Ext: no edema, no tremors Neuro: minimally lethargic, though Ox3, good historian, normal speech Psych: calm / cooperative Results & Data Results & Data Vital Signs (Past 12 Hours) Vital Signs Temp Pulse Pulse Resp BP BP Pulse Ox 02/13/25 13:06 101 H 18 127/86 95 02/13/25 13:06 93 02/13/25 13:04 99 H 02/13/25 12:48 36.6 C 111 H 20 138/93 93 O2 Del Method 02/13/25 13:06 Room Air 02/13/25 13:06 Room Air 02/13/25 13:04 02/13/25 12:48 Room Air PG Care Time/CCT Total # of Minutes Spent Total Time Spent with Patient: Total time spent is greater than 50% in coordination of care (as documented) at patient's floor/unit and/or counseling patient: Coding Level of Care Code 40978 INT INP/OBS CARE 3/75MIN Diagnoses Alcohol withdrawal F10.930 Complication of substance-induced condition: uncomplicated Alcohol dependence F10.29 Substance use status: unspecified alcohol-induced disorder (1) Alcohol withdrawal Complication of substance-induced condition: uncomplicated Qualified Code(s): F10.930 - Alcohol use, unspecified with withdrawal, uncomplicated (2) Alcohol dependence Substance use status: unspecified alcohol-induced disorder Qualified Code(s): F10.29 - Alcohol dependence with unspecified alcohol-induced disorder
[2025-02-13 15:22] LABS: Amphetamines+Metham, Urine Neg (Neg); MDMA (Ecstacy), Urine Neg (Neg); Marijuana, Urine Neg (Neg)
[2025-02-13] MEDS: THIAMINE HCL 100 MG in SYRINGE 9 ML IV STA (16:07)
[2025-02-13] MEDS ORDERED: chlordiazePOXIDE ALCOHOL WITHDRAWL 50MG PO STA (16:57)
[2025-02-13] MEDS ORDERED: ONDANSETRON INJ 2 MG/ML 2 ML VIAL IV PRN (16:57)
[2025-02-13] MEDS ORDERED: Ativan IV Alcohol Withdrawal--Active Protocol IV PRN (16:57)
[2025-02-13] MEDS: LACTATED RINGER'S 1,000 ML IV SCH (17:27)
[2025-02-13] MEDS: GABAPENTIN 100 MG CAP PO PRN (19:32)
[2025-02-13 19:35] VITALS: RESP 18
[2025-02-13] MEDS: ACETAMINOPHEN 325 MG TAB PO PRN (20:11)
[2025-02-14 06:20] LABS: Hematocrit (blood only) 37.5 % (37.0-47.0); Hemoglobin 12.5 g/dl (12.0-16.0); Immature Granulocytes # (auto) 0.01 K/uL (0.01-0.20); Immature Granulocytes % (auto) 0.2 %; Mean Corpuscular Hemoglobin 31.2 pg (25.0-34.0); Mean Corpuscular Volume 93.5 fL (80.0-100.0); Platelet Count 199 K/uL (130-400); RDW Standard Deviation 43.4 fL (36.4-46.3); Red Blood Count 4.01 M/uL (4.20-5.40); White Blood Count 5.01 K/ul (4.8-10.8)
[2025-02-14 06:41] LABS: Alanine Aminotransferase 17.0 U/L (7-52); Albumin Globulin Ratio 1.7 (0.9-2); Alkaline Phosphatase 24.0 U/L (34-104); Anion Gap 5.0 (3-11); Bilirubin,Total 0.5 mg/dl (0.2-1.0); Blood Urea Nitrogen 14.0 mg/dl (6-23); Calcium 8.5 mg/dl (8.6-10.3); Carbon Dioxide 29.0 mmol/L (21-32); Chloride 104.0 mmol/L (98-107); Creatinine Clr Calc Pharmacy 84.8 ml/min; Globulin 2.2 gm/dl (2.5-4.0); Glucose 91.0 mg/dl (70-99(Fasting)); Magnesium 1.9 mg/dl (1.7-2.4); Potassium 4.1 mmol/L (3.5-5.1); Sodium 138.0 mmol/L (136-145); Total Protein 6.0 gm/dl (6.0-8.3)
[2025-02-14] MEDS: THIAMINE HCL 100 MG TAB PO SCH (07:42)
[2025-02-14] MEDS: FOLIC ACID 1 MG TAB PO SCH (07:42)
[2025-02-14] MEDS: MULTIVITAMIN TAB PO SCH (07:42)
[2025-02-14 07:55] VITALS: BP 118/73; PULSE 73; TEMP 97.9; O2SAT 95
--- NOTE | 2025-02-14 08:21 | Electrocardiogram Report ---
Test Reason : Blood Pressure : */* mmHG Vent. Rate : 100 BPM Atrial Rate : 100 BPM P-R Int : 166 ms QRS Dur : 106 ms QT Int : 354 ms P-R-T Axes : 59 45 59 degrees QTcB Int : 456 ms Normal sinus rhythm Incomplete right bundle branch block Borderline ECG When compared with ECG of 27-Jan-2025 19:28, No significant change was found Confirmed by Chey Cummings (Joanne) on 02/14/2025 8:21:23 AM Referred By: REFERRED SELF Confirmed By: Chey Cummings
--- NOTE | 2025-02-14 09:59 | Discharge Summary ---
Discharge Summary Date of Service February 14, 2025 Principal Dx & Hospital Course #1 = Principal Diagnosis (1) Alcohol withdrawal: (2) Alcohol dependence: Plan Angeles Woo is a 44 year old female admitted to [facility] from February 13-2024 due to alcohol withdrawal. She was treated with Librium and improved overnight. She is now medically stable for discharge and will be discharged with a Librium taper. Notes For Next Care Provider Follow up alcohol cessation Medication Changes From Visit Librium taper Admission HPI Per Admitting Provider 44 yo F with PMHx of alcohol use disorder, benzodiazepine use disorder, withdra wals complicated by DTs and single episode of seizures. Pt states that alcohol use disorder started when she was 39 years ago. 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 She has been trying to get her life back in order, but she is has not been able to be successful. She has had multiple admission for alcohol use disorder / withdrawal management. Pt stated that this round of problem started last Friday when she decided to drink wine. She was drinking about 8 glasses per day. She thought she could manage it on her own. However, after two days, she was unable to quit. She started having tremors and would keep drinking just enough to stop shaking. She also stopped eating and drinking fluids. Prior to this episode, she was not drinking for two weeks, which was since last discharge. She did mention a single episode of seizure about 4 years ago while she was a rehab. She stated that she was not being monitored well or being medicated, which led to this single seizure episode. She has not had any issues since then. She does not want to go to rehab at all. She does follow with AA and she has a sponsor. She spoke with her sponsor about 2-3 days ago. She also uses benzodiazepine, Xanax 0.5mg nightly. She states she was off of it for 2-3 weeks but started back up again about 1 week ago. Currently she has no new complaints. Discharge Exam Constitutional WD/WN, vitals as above Respiratory normal respiratory effort; no respiratory distress Gastrointestinal (Abdomen) normal bowel sounds, soft, nontender, no hepatosplenomegaly Discharge Plan Discharge Items Patient Disposition: Home - Self-Care Reason For Visit: ALCOHOL WITHDRAWAL Discharge Diagnosis: Alcohol withdrawal Condition on Discharge: Good Activity: Resume your previous activity Non-emergency contact: Primary Care Provider Call non-emergency contact if: you have any medication questions and your symptoms worsen Follow-up/Referrals: Jair Cui, [Primary Care Provider] - Diet: Regular Addtl Attending Provider Instructions: You were admitted to [facility] from February 13-2024 due to alcohol withdrawal. You were treated with Librium and improved overnight. Pending Studies at Discharge: No Stand-Alone Forms: My [facility], Work/School Release, Smoking Cessation Medications and DC Order Prescriptions: New chlordiazepoxide HCl 25 mg capsule See Rx Instructions .ROUTE .COMPLEX Qty: 7 0RF Rx Instructions: 50mg mg orally twice a day for 1 day, 25mg orally twice a day for 1 day, then 25mg orally once a day for one day, then stop thiamine HCl (vitamin B1) 100 mg tablet 100 mg PO DAILY Qty: 30 0RF Continued multivitamin Tablet 1 tab PO DAILY ondansetron HCl 4 mg tablet 4 mg PO DAILY PRN (Reason: Nausea) 30 Days Qty: 20 0RF gabapentin 100 mg capsule 200 mg PO BID PRN (Reason: anxiety) Rx Instructions: Do not fill scripts early epinephrine [EpiPen] 0.3 mg/0.3 mL Auto-Injector 0.3 mg IM DIRECTED PRN (Reason: Allergic Reaction) dicyclomine 10 mg Capsule 10 mg PO Q4H PRN (Reason: abdominal pain) Qty: 12 0RF hydroxyzine HCl 25 mg tablet 25 mg PO Q8H PRN (Reason: anxiety) Qty: 30 0RF No Action escitalopram oxalate [Lexapro] 5 mg tablet 5 mg PO DAILY Discharge Orders: Discharge Order (Routine); Ordered 02/14/25 Ordered By: Robbie Ross Admission Data Admit Date/Time: 02/13/25 15:36 Attending Provider: Robbie Ross Admit Provider: Brissa Rosales Primary Care Provider: aJir Cui Other Providers: Brissa Rosales Other Interventions: Discharge Summary Assessment (RN) Last Done: 02/14/25 10:31 Hospital Stay Data Consultations 02/13/25 15:04 ED Decision to Admit Stat Pending Results Patient Have Any Pending Studies at Discharge: No Discharge Instructions Given to Patient (Per Discharging Provider) You were admitted to [facility] from February 13-2024 due to alcohol withdrawal. You were treated with Librium and improved overnight. Total Time Total Time Spent Total Time Spent (In Minutes): 35 Coding Level of Care Code 43454 INP/OBS DISCH >30 MIN Diagnoses Alcohol withdrawal F10.930 Complication of substance-induced condition: uncomplicated Alcohol dependence F10.29 Substance use status: unspecified alcohol-induced disorder
== END 2025-02-14 11:36 | disposition home or self-care (01) | DRG 897 ==
LOC: ED 12:38 → SUATTDRO 15:36 → INTOOBSV 15:36 → 2E 15:36

== ENCOUNTER 2025-03-08 07:34 | Observation (INO) ==
--- NOTE | 2025-03-08 07:57 | Emergency Department Note ---
Impression & Plan Alcohol abuse, Hx of drug abuse, Alcohol dependence, Alcohol withdrawal ED Provider Note NAME: DAGMAR LI AGE: 44 SEX: F : 1980 ARRIVES VIA: Walk-In INFORMANT: Patient ED PROVIDER(S): Cem Salinas DO CHIEF COMPLAINT: Alcohol withdrawal HPI: Patient is a 44-year-old female with a past medical history of alcohol abuse and drug abuse who presents to the ER concerned that she is going through alcohol withdrawal. She notes that she started drinking again about 5 days ago. This morning she drank a half a bottle of wine. Generally she drinks about 2-3 bottles of wine per day. Prior to these past 5 days she had not been drinking for several weeks. She notes that she was following with her PCP who was prescribing her Xanax. She was taking only 0.5 mg at night. She is no longer taking this medication and has not been taking it for the past 4 days. Yesterday she notes she was dismissed and discharged and was very upset. She went home and because she did not want to use alcohol she started using oxycodone. She took her friends oxycodone and she is not 100% sure that it was oxy but does believe it was a narcotic. She notes that this helped her sleep so she did not abuse alcohol. She also notes that she has ran out of her gabapentin and has not had any for the past 4 days. She believes that she is detoxing from her gabapentin, Xanax, and alcohol at this time. She does not use narcotics regularly. She does admit to having a withdrawal seizure previously. ADDITIONAL HISTORY OBTAINED: Per HPI Chronic Medical/Social Conditions Affecting Care: Per HPI PAST MEDICAL HISTORY:See Below PAST SURGICAL HISTORY:See Below FAMILY HISTORY:See Below SOCIAL HISTORY:See Below HOME MEDICATIONS:See Below ALLERGIES:See Below VITALS:See Below PHYSICAL EXAMINATION: GENERAL: Sitting up in bed, alert, well appearing, well nourished, no distress, non-toxic EYE EXAM: normal conjunctiva. PERRL and EOM's grossly intact. OROPHARYNX: no exudate, no erythema, lips, buccal mucosa, and tongue normal and mucous membranes are moist NECK: supple, no nuchal rigidity, no adenopathy, non-tender LUNGS: Clear to auscultation. Normal chest wall mechanics HEART: no murmurs, S1 normal and S2 normal ABDOMEN: abdomen soft, non-tender, normo-active bowel sounds, no masses, no rebound or guarding. BACK: Back is symmetrical on inspection and there is no deformity, no midline tenderness, no CVA tenderness. SKIN: no rashes and no bruising UPPER EXTREMITIES: upper extremities are grossly normal. LOWER EXTREMITIES: No pitting edema. NEURO EXAM: Normal sensorium, cranial nerves II-XII grossly intact, normal speech, no gross weakness of arms, no gross weakness of legs. MEDICAL DECISION MAKING: Patient is a 44-year-old female who presents ER for the above-stated complaint. IV was established and blood work was obtained. She does not want to go to rehab. Labs show no significant leukocytosis or anemia. BMP along LFTs bilirubin and lipase unremarkable. hCG was negative. UA was contaminated. Alcohol at 134. No signs of withdrawal here. Patient requesting Librium taper but she is abusing narcotics, alcohol and she does and has used benzos as well as gabapentin before and I feel with this polypharmacy this would be extremely risky. She was consequently discussed with the hospitalist and care management admitted for further observation. Consults/Care Managements Discussions: Per [facility] Triage Nursing notes reviewed. Limited review of prior medical records performed Vital Signs: reviewed and remarkable for no significant abnormalities Differential diagnosis: Differential diagnosis includes etiologies such as alcohol intoxication, toxicologic, infection, hypoglycemia, electrolyte abnormalities, cardiac sources, intracerebral event, neurological, as well as others were entertained. ER treatment provided: See below Diagnostics interpreted by me include EKG and cardiac monitoring as listed below: -Cardiac Monitoring: An order was placed for continuous cardiac monitoring. The monitor shows a rate of 80 with sinus rhythm. -ECG: Sinus rhythm rate 80 Normal axis No PVCs QTc 419 -Laboratory studies:Interpreted by me as stated above in MDM and shown below. Imaging studies: Xrays: As interpreted by me:none CTs show: none Procedures:none Critical Care: None Past Med/Surg History Problem List (Updated 03/08/25 @ 09:37 by Cem Salinas DO) Alcohol abuse (Acute) Dyspnea Alcohol withdrawal (Acute) Alcohol dependence (Acute) Dense breast tissue Lump of right breast Hx of herpes genitalis Hx of drug abuse (Acute) Hx drug and alcohol abuse. Medical History Alcohol withdrawal with inpatient treatment Chronic prescription benzodiazepine use Alcohol use disorder Anxiety Open wound of second toe of left foot Cellulitis of second toe of left foot Hx of cold sores Somatic dysfunction of pelvic region Somatic dysfunction of lumbar region Somatic dysfunction of thoracic region Somatic dysfunction of cervical region Somatic dysfunction of rib Withdrawal syndrome Intentional overdose Surgical History History of oral surgery History of D&C Family History Sister Breast cancer Denies family history of Ovarian cancer Prostate cancer Myocardial infarction Colorectal cancer Social History Smoking Status: Never smoker Second Hand Exposure: No; Do You Dip or Chew Tobacco: No; Hx Alcohol Use: Yes Alcohol type: wine Hx Substance Use: Yes Last Used Substance: Hours (ago) Last Used Substance Other:: xanax Substance Use Type Other:: benzo xanax Preferred Language: Frisian Communication Ability: Effective Visual Impairment: No Limitations Hearing Ability: Normal Manager Eligibility Required: No Beliefs That Will Affect Care: None marital status: Current Living Situation: Alone Current Living Situation Comment: Lives at home alone current occupational status: employed 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 How many Children do You have: 0 Feels Safe at Home: Yes Childhood Exposure to Second-Hand Smoke: No Diet: regular caffeine: Yes during the past year weight has: remained stable Dental Care, Regularly: Yes Physical Activity Frequency: Daily Seatbelt Use: always Sunscreen Use: Yes Do you think of yourself as: straight/heterosexual Sexual Activity: has been sexually active within the last 12 months Gender Identity: Female Assistive Devices: None Allergies Allergies Allergy/AdvReac Type Severity Reaction Status Date / Time hornet venom Allergy Severe Anaphylaxis Verified 03/02/25 12:25 Home Meds Home Medications Medication Instructions Recorded Confirmed multivitamin 1 tab PO DAILY 05/10/24 03/08/25 epinephrine 0.3 mg/0.3 mL 0.3 mg IM DIRECTED PRN Allergic 01/28/25 03/08/25 injection, auto-injector (EpiPen) Reaction escitalopram oxalate 5 mg tablet 5 mg PO DAILY 02/16/25 03/08/25 (Lexapro) gabapentin 100 mg capsule 200 mg PO BID PRN anxiety 02/23/25 03/08/25 alprazolam 0.5 mg tablet,extended 0.5 mg PO HS 03/08/25 03/08/25 release 24 hr chlordiazepoxide HCl 25 mg capsule 25 mg PO UD 03/08/25 03/08/25 Previous Rx's Medication Instructions Recorded ondansetron HCl 4 mg tablet 4 mg PO DAILY PRN Nausea 30 days 12/01/24 #20 tabs dicyclomine 10 mg capsule 10 mg PO Q4H PRN abdominal pain 01/30/25 #12 caps hydroxyzine HCl 25 mg tablet 25 mg PO Q8H PRN anxiety #30 tabs 01/30/25 thiamine HCl (vitamin B1) 100 mg 100 mg PO DAILY #30 tabs 02/14/25 tablet acamprosate 333 mg tablet,delayed 333 mg PO TID #90 tabs 02/23/25 release naltrexone 50 mg tablet 25 mg (1/2 x 50 mg) PO BID #30 tabs 02/23/25 valacyclovir 500 mg tablet 500 mg PO BID PRN herpes flare #20 02/25/25 tabs Results & Data (ED) Vital Signs Vital Signs - 24 hr 03/08/25 07:38 03/08/25 08:02 03/08/25 08:06 Temperature 36.5 C Temperature Source Temporal Artery Scan Pulse Rate 85 74 Pulse Rate [Apical] 76 Respiratory Rate 22 18 Respiratory Effort / Characteristics Non-Labored Non-Labored Spontaneous Respiratory Depth Normal Normal Blood Pressure 134/85 Blood Pressure [Left Arm] 126/80 Blood Pressure Mean 101 Blood Pressure Mean [Left Arm] 95 Blood Pressure Position [Left Arm] Lying Pulse Oximetry 97 97 Oxygen Delivery Method Room Air Room Air Sepsis Recent Fever Within 48 Hours No Sepsis New/Unexplained Change in Mental Status No Sepsis Action Taken by Nursing No Action Required Laboratory Data 03/08/25 07:54 03/08/25 07:54 Lab Results 03/08/25 03/08/25 Range/Units 07:54 08:00 WBC 6.34 (4.8-10.8) K/ul RBC 4.11 L (4.20-5.40) M/uL Hgb 13.2 (12.0-16.0) g/dl Hct 39.4 (37.0-47.0) % MCV 95.9 (80.0-100.0) fL MCH 32.1 (25.0-34.0) pg MCHC 33.5 (32.0-36.0) g/dL RDW Std Deviation 48.2 H (36.4-46.3) fL RDW Coeff of Zahraa 13.7 (11.5-14.5) % Plt Count 208 (130-400) K/uL MPV 10.0 (9.4-12.4) fL Immature Gran % (Auto) 0.3 % Neut % (Auto) 75.0 % Lymph % (Auto) 17.8 % Morris % (Auto) 4.4 % Eos % (Auto) 2.2 % Baso % (Auto) 0.3 % Neut # (Auto) 4.75 (1.40-6.50) K/uL Lymph # (Auto) 1.13 L (1.20-3.40) K/uL Morris # (Auto) 0.28 (0.11-0.59) K/uL Eos # (Auto) 0.14 (0.00-0.50) K/uL Baso # (Auto) 0.02 (0.00-0.20) K/uL Immature Gran # (Auto) 0.02 (0.01-0.20) K/uL Sodium 137 (136-145) mmol/L Potassium 3.8 (3.5-5.1) mmol/L Chloride 104 (98-107) mmol/L Carbon Dioxide 25 (21-32) mmol/L Anion Gap 8 (3-11) BUN 9 (6-23) mg/dl Creatinine 0.71 (0.6-1.2) mg/dl Est Cr Clr Drug Dosing 104.6 ml/min eGFR 106.79 BUN/Creatinine Ratio 12.7 (10-20) Glucose 168 H (70-99(Fasting)) mg/dl Calcium 8.8 (8.6-10.3) mg/dl Total Bilirubin 0.3 (0.2-1.0) mg/dl AST 15 (13-39) U/L ALT 14 (7-52) U/L Alkaline Phosphatase 25 L (34-104) U/L Total Protein 7.3 (6.0-8.3) gm/dl Albumin 4.3 (3.4-5.0) gm/dl Globulin 3.0 (2.5-4.0) gm/dl Albumin/Globulin Ratio 1.4 (0.9-2) Lipase 16 (11-82) U/L HCG, Qual Negative (Negative) Urine Color Yellow Urine Appearance Cloudy A (Clear) Urine pH 6.5 (4.5-7.5) Ur Specific [place] 1.023 (1.000-1.030) Urine Protein Trace H (Negative) Urine Glucose (UA) Negative (Negative) Urine Ketones Negative (Negative) Urine Blood Negative (Negative) Urine Nitrite Negative (Negative) Urine Bilirubin Negative (Negative) Urine Urobilinogen Negative (Negative) Ur Leukocyte Esterase Negative (Negative) Urine WBC (Auto) 11-20 H (0-5) /hpf Urine RBC (Auto) 0-2 (0-2) /hpf U Hyaline Cast (Auto) 0-2 (0-2) /lpf U Epithel Cells (Auto) >20 H (0-2) /hpf Urine Bacteria (Auto) 4+ H (None Seen) Urine Comment Ethyl Alcohol mg/dL 132.4 H (<10.0) mg/dl Administered Medications Sodium Chloride (Nss) 1,000 mls @ 999 mls/hr IV .Q1H1M LEXX Stop: 03/08/25 10:00 Last Admin: 03/08/25 08:13 Dose: 999 mls/hr Documented By: ÓSCAR Discontinued Medications Ondansetron HCl (Ondansetron Inj 2 Mg/Ml 2 Ml Vial) 4 mg IV NOW STA Stop: 03/08/25 07:55 Last Admin: 03/08/25 08:13 Dose: 4 mg Documented By: ÓSCAR Discharge Plan Visit Data Chief Complaint: Alcohol Withdrawal Stated Complaint: ALCOHOL DETOX ED Provider: Cem Salinas Discharge Problem: Alcohol abuse, Hx of drug abuse, Alcohol dependence, Alcohol withdrawal Condition: Fair Forms Stand Alone Forms: My [facility], Suicide Prevention Resources Prescriptions Prescriptions: No Action valacyclovir 500 mg tablet 500 mg PO BID PRN (Reason: herpes flare) Qty: 20 3RF Rx Instructions: 500 mg twice daily x 3 days for Genital herpes flare. 2 g twice daily x 1 day for cold sore flare. escitalopram oxalate [Lexapro] 5 mg tablet 5 mg PO DAILY acamprosate 333 mg tablet,delayed release (DR/EC) 333 mg PO TID Qty: 90 5RF Rx Instructions: administer with mid-day and evening meals naltrexone 50 mg tablet 25 mg PO BID Qty: 30 5RF Rx Instructions: take with lunch and dinner gabapentin 100 mg capsule 200 mg PO BID PRN (Reason: anxiety) Rx Instructions: Managed by psych multivitamin Tablet 1 tab PO DAILY ondansetron HCl 4 mg tablet 4 mg PO DAILY PRN (Reason: Nausea) 30 Days Qty: 20 0RF epinephrine [EpiPen] 0.3 mg/0.3 mL Auto-Injector 0.3 mg IM DIRECTED PRN (Reason: Allergic Reaction) dicyclomine 10 mg Capsule 10 mg PO Q4H PRN (Reason: abdominal pain) Qty: 12 0RF hydroxyzine HCl 25 mg tablet 25 mg PO Q8H PRN (Reason: anxiety) Qty: 30 0RF alprazolam 0.5 mg tablet extended release 24 hr 0.5 mg PO HS chlordiazepoxide HCl 25 mg capsule 25 mg PO UD Patient Comments: last filled 02/21 4 day supply #20 Rx Instructions: Take 2 tabs 4 times daily x 1 day, 2 tabs 3 times daily 2nd day, 2 tabs 2 times daily 3rd day, and 2 tablets 4th day. (20 tabs) thiamine HCl (vitamin B1) 100 mg tablet 100 mg PO DAILY Qty: 30 0RF Referrals Referrals: Jair Cui DO [Primary Care Provider] - Discharge Problem: Alcohol dependence Qualifiers: Substance use status: unspecified alcohol-induced disorder Qualified Code(s): F 10. - Alcohol dependence with unspecified alcohol-induced disorder Alcohol withdrawal Qualifiers: Complication of substance-induced condition: uncomplicated Qualified Code(s): F 10930 - Alcohol use, unspecified with withdrawal, uncomplicated
[2025-03-08 08:12] LABS: Hematocrit (blood only) 39.4 % (37.0-47.0); Hemoglobin 13.2 g/dl (12.0-16.0); Immature Granulocytes # (auto) 0.02 K/uL (0.01-0.20); Immature Granulocytes % (auto) 0.3 %; Mean Corpuscular Hemoglobin 32.1 pg (25.0-34.0); Mean Corpuscular Volume 95.9 fL (80.0-100.0); Platelet Count 208 K/uL (130-400); RDW Standard Deviation 48.2 fL (36.4-46.3); Red Blood Count 4.11 M/uL (4.20-5.40); White Blood Count 6.34 K/ul (4.8-10.8)
[2025-03-08] MEDS: ONDANSETRON INJ 2 MG/ML 2 ML VIAL IV STA (08:13)
[2025-03-08] MEDS: SODIUM CHLORIDE 0.9% 1,000 ML IV SCH (08:13)
[2025-03-08 08:17] LABS: Appearance Urine Cloudy (Clear); Bacteria Urine Automated 4+ (None Seen); Cast Urine Automated 0-2 /lpf (0-2); Epithelial Cell Urine Auto >20 /hpf (0-2); Glucose Urine UA Negative (Negative); RBC Urine Automated 0-2 /hpf (0-2)
[2025-03-08 08:30] LABS: Alanine Aminotransferase 14.0 U/L (7-52); Albumin Globulin Ratio 1.4 (0.9-2); Alkaline Phosphatase 25.0 U/L (34-104); Anion Gap 8.0 (3-11); Bilirubin,Total 0.3 mg/dl (0.2-1.0); Blood Urea Nitrogen 9.0 mg/dl (6-23); Calcium 8.8 mg/dl (8.6-10.3); Carbon Dioxide 25.0 mmol/L (21-32); Chloride 104.0 mmol/L (98-107); Creatinine Clr Calc Pharmacy 104.6 ml/min; Globulin 3.0 gm/dl (2.5-4.0); Glucose 168.0 mg/dl (70-99(Fasting)); Lipase 16.0 U/L (11-82); Potassium 3.8 mmol/L (3.5-5.1); Sodium 137.0 mmol/L (136-145); Total Protein 7.3 gm/dl (6.0-8.3)
[2025-03-08 08:31] LABS: Pregnancy Test, Serum Negative (Negative)
[2025-03-08] MEDS ORDERED: ACETAMINOPHEN 500 MG TAB PO PRN (09:26)
[2025-03-08] MEDS ORDERED: POLYETHYLENE (MIRALAX) 17 GM PACK PO PRN (09:26)
--- NOTE | 2025-03-08 09:30 | History & Physical Report ---
Date of Service March 08, 2025 Assessment & Plan (1) Alcohol abuse: (2) Alcohol withdrawal: (3) Anxiety: Plan This is a 44 year old female with past medical history of alcohol abuse and anxiety who presented to the ER on 03/08 for alcohol withdrawal. While in the ED, she had stable CBC/BMP. Alcohol level was elevated at 132.4. She was given IV fluids, thiamine, and folic acid. Vital signs stable with stable HR and BP. Afebrile. #Alcohol withdrawal w/ multiple previous admissions regarding withdrawal over last ~3 months. alcohol level 132.4 on admission. Librium 10mg TID w/ prn Ativan of AWSS > 6 Resume home gabapentin dosing to help w/ withdrawal + anxiety. Thiamine, Folic acid, Multi vitamin daily LR 125ml/hr x 2 bags. Not interested in inpatient rehab programs; Does have naltrexone and acamprosate prescriptions - can be further discussed w/ her PCP on discharge. Tylenol prn for pain/fever, Zofran prn for N/V. Check urine drug screen given she was taking friends oxycodone prescription outpatient. #Anxiety Continue Lexapro Resume Gabapentin Hydroxyzine prn for breakthrough anxiety. Hold Xanax HS while on Librium/Ativan. DVT prophylaxis: Lovenox Code: full Case discussed w/ Dr. Morin at time of admission History of Present Illness Primary Care Provider: Jair Cui, This is a 44 year old female with past medical history of alcohol abuse and anxiety who presented to the ER on 03/08 for alcohol withdrawal. [place] was seen and examined this morning. She reports that she had another relapse of her sobriety and has been having alcohol for about 5 days. She has been averaging 2-3 bottles of wine per day and did have half a bottle of wine this morning prior to coming in. She states that she has had a difficult summer with staying sober but previous to this summer was sober for about 3 years. She is not interested in inpatient rehab. She also has not been taking Xanax or juliocesar pentin at home the past 4 days either. Patient reports she is unsure of where the prescriptions went as she was drinking. She states she did take oxycodone from her friend yesterday evening to help with sleep and avoid drinking. This morning she woke and had shakes and N/V. Presently she had a headache and felt shaky/anxious. She states she does not believe she has had withdrawal seizures in the past but has had auditory hallucinations. States she is following with a psychiatrist outpatient now as well. Denies CP, SOB, abdominal pain, LE edema, urinary dysuria/frequency. . While in the ED, she had stable CBC/BMP. Alcohol level was elevated at 132.4. She was given IV fluids, thiamine, and folic acid. Vital signs stable with stable HR and BP. Afebrile. Allergies Allergy/AdvReac Type Severity Reaction Status Date / Time hornet venom Allergy Severe Anaphylaxis Verified 03/02/25 12:25 Home Medications Medication Instructions Recorded Confirmed Type multivitamin 1 tab PO DAILY 05/10/24 03/08/25 History ondansetron HCl 4 mg tablet 4 mg PO DAILY PRN Nausea 30 days 12/01/24 03/08/25 Rx #20 tabs epinephrine 0.3 mg/0.3 mL 0.3 mg IM DIRECTED PRN Allergic 01/28/25 03/08/25 History injection, auto-injector (EpiPen) Reaction dicyclomine 10 mg capsule 10 mg PO Q4H PRN abdominal pain 01/30/25 03/08/25 Rx #12 caps hydroxyzine HCl 25 mg tablet 25 mg PO Q8H PRN anxiety #30 tabs 01/30/25 03/08/25 Rx thiamine HCl (vitamin B1) 100 mg 100 mg PO DAILY #30 tabs 02/14/25 03/08/25 Rx tablet escitalopram oxalate 5 mg tablet 5 mg PO DAILY 02/16/25 03/08/25 History (Lexapro) acamprosate 333 mg tablet,delayed 333 mg PO TID #90 tabs 02/23/25 03/08/25 Rx release gabapentin 100 mg capsule 200 mg PO BID PRN anxiety 02/23/25 03/08/25 History naltrexone 50 mg tablet 25 mg (1/2 x 50 mg) PO BID #30 tabs 02/23/25 03/08/25 Rx valacyclovir 500 mg tablet 500 mg PO BID PRN herpes flare #20 02/25/25 03/08/25 Rx tabs alprazolam 0.5 mg tablet,extended 0.5 mg PO HS 03/08/25 03/08/25 History release 24 hr chlordiazepoxide HCl 25 mg capsule 25 mg PO UD 03/08/25 03/08/25 History Past Med/Surg History Problem List (Updated 03/08/25 @ 09:37 by Cem Salinas DO) Alcohol abuse (Acute) Dyspnea Alcohol withdrawal (Acute) Alcohol dependence (Acute) Dense breast tissue Lump of right breast Hx of herpes genitalis Hx of drug abuse (Acute) Hx drug and alcohol abuse. Medical History Alcohol withdrawal with inpatient treatment Chronic prescription benzodiazepine use Alcohol use disorder Anxiety Open wound of second toe of left foot Cellulitis of second toe of left foot Hx of cold sores Somatic dysfunction of pelvic region Somatic dysfunction of lumbar region Somatic dysfunction of thoracic region Somatic dysfunction of cervical region Somatic dysfunction of rib Withdrawal syndrome Intentional overdose Surgical History History of oral surgery History of D&C Family History Sister Breast cancer Denies family history of Ovarian cancer Prostate cancer Myocardial infarction Colorectal cancer Social History Smoking Status: Never smoker Second Hand Exposure: No; Do You Dip or Chew Tobacco: No; Hx Alcohol Use: Yes Alcohol type: wine Hx Substance Use: Yes Last Used Substance: Hours (ago) Last Used Substance Other:: xanax Substance Use Type Other:: benzo xanax Preferred Language: Norwegian Communication Ability: Effective Visual Impairment: No Limitations Hearing Ability: Normal Offshore Diver Required: No Beliefs That Will Affect Care: None marital status: Current Living Situation: Alone Current Living Situation Comment: Lives at home alone current occupational status: employed 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 How many Children do You have: 0 Feels Safe at Home: Yes Childhood Exposure to Second-Hand Smoke: No Diet: regular caffeine: Yes during the past year weight has: remained stable Dental Care, Regularly: Yes Physical Activity Frequency: Daily Seatbelt Use: always Sunscreen Use: Yes Do you think of yourself as: straight/heterosexual Sexual Activity: has been sexually active within the last 12 months Gender Identity: Female Assistive Devices: None Physical Exam Constitutional: WD/WN, vitals as above Eyes: PERRL, conjunctivae normal, anicteric sclerae Respiratory: normal respiratory effort, lungs clear to auscultation Cardiovascular: RRR, no murmur, no edema Gastrointestinal (Abdomen): normal bowel sounds, soft, nontender, no hepatosplenomegaly Skin: no rashes, warm and dry Neurologic: PERRL, EOMI, accommodation nl, no face palsy, no dysarthria Psychiatric: A+Ox3, euthymic affect Results & Data Results & Data Vital Signs (Past 12 Hours) Vital Signs Temp Pulse Pulse Resp BP BP Pulse Ox 03/08/25 08:06 74 03/08/25 08:02 76 18 126/80 97 03/08/25 07:38 36.5 C 85 22 134/85 97 O2 Del Method 03/08/25 08:06 03/08/25 08:02 Room Air 03/08/25 07:38 Room Air Supervising Physician Co-Signing Physician Notes The patient was not seen by me. The chart was reviewed. Case discussed with ARTHUR Oseguera. Agree with assessment and plan PG Care Time/CCT Total # of Minutes Spent Total Time Spent with Patient: Total time spent is greater than 50% in coordination of care (as documented) at patient's floor/unit and/or counseling patient: Coding Level of Care Code 14164 INT INP/OBS CARE 3/75MIN Diagnoses Alcohol abuse F10.10 Alcohol withdrawal F10.930 Complication of substance-induced condition: uncomplicated Anxiety F41.9 (2) Alcohol withdrawal Complication of substance-induced condition: uncomplicated Qualified Code(s): F10.930 - Alcohol use, unspecified with withdrawal, uncomplicated
[2025-03-08] MEDS: FOLIC ACID 1 MG in SYRINGE 9.8 ML IV STA (09:39)
[2025-03-08] MEDS: THIAMINE HCL 100 MG in SYRINGE 9 ML IV STA (09:40)
[2025-03-08] MEDS: LACTATED RINGER'S 1,000 ML IV SCH (10:52)
[2025-03-08] MEDS: ONDANSETRON INJ 2 MG/ML 2 ML VIAL IV PRN (11:38)
--- NOTE | 2025-03-08 11:43 | Electrocardiogram Report ---
Test Reason : Blood Pressure : */* mmHG Vent. Rate : 80 BPM Atrial Rate : 80 BPM P-R Int : 164 ms QRS Dur : 94 ms QT Int : 364 ms P-R-T Axes : 43 11 45 degrees QTcB Int : 419 ms Normal sinus rhythm ST segement changes concerning for Brugada Abnormal ECG When compared with ECG of 13-Feb-2025 13:19, No significant change was found Confirmed by Janusz Morgan ([id number]) on 03/08/2025 11:43:21 AM Referred By: REFERRED SELF Confirmed By: Janusz Morgan
[2025-03-08] MEDS: LORazepam 1 MG TAB PO PRN (13:11)
[2025-03-08 14:13] LABS: Amphetamines+Metham, Urine Neg (Neg); MDMA (Ecstacy), Urine Neg (Neg); Marijuana, Urine Neg (Neg)
[2025-03-08] MEDS ORDERED: LORazepam 1 MG TAB PO PRN (19:04)
[2025-03-08] MEDS: GABAPENTIN 100 MG CAP PO SCH (20:41)
[2025-03-08] MEDS: ENOXAPARIN INJ 40 MG/0.4 ML SYR SQ SCH (20:41)
[2025-03-09 03:06] VITALS: O2SAT 95
[2025-03-09] MEDS: FOLIC ACID 1 MG TAB PO SCH (08:46)
[2025-03-09] MEDS: MULTIVITAMIN TAB PO SCH (08:46)
[2025-03-09] MEDS: THIAMINE HCL 100 MG TAB PO SCH (08:46)
[2025-03-09] MEDS: ESCITALOPRAM OXALATE 10 MG TAB PO SCH (08:46)
[2025-03-09 10:06] LABS: Hematocrit (blood only) 35.4 % (37.0-47.0); Hemoglobin 12.0 g/dl (12.0-16.0); Mean Corpuscular Hemoglobin 31.9 pg (25.0-34.0); Mean Corpuscular Volume 94.1 fL (80.0-100.0); Platelet Count 159 K/uL (130-400); RDW Standard Deviation 45.7 fL (36.4-46.3); Red Blood Count 3.76 M/uL (4.20-5.40); White Blood Count 4.74 K/ul (4.8-10.8)
[2025-03-09 10:19] LABS: Anion Gap 2.0 (3-11); Blood Urea Nitrogen 9.0 mg/dl (6-23); Carbon Dioxide 29.0 mmol/L (21-32); Chloride 105.0 mmol/L (98-107); Creatinine Clr Calc Pharmacy 84.4 ml/min; Potassium 4.0 mmol/L (3.5-5.1); Sodium 136.0 mmol/L (136-145)
[2025-03-09 10:20] LABS: Calcium 8.6 mg/dl (8.6-10.3); Glucose 98.0 mg/dl (70-99(Fasting)); Magnesium 1.7 mg/dl (1.7-2.4)
[2025-03-09] MEDS: DICYCLOMINE HCL 10 MG CAP PO PRN (10:52)
[2025-03-09 11:22] VITALS: PULSE 74; RESP 18; TEMP 98.4
--- NOTE | 2025-03-09 11:35 | Discharge Summary ---
Discharge Summary Date of Service March 09, 2025 Principal Dx & Hospital Course #1 = Principal Diagnosis (1) Alcohol abuse: (2) Alcohol withdrawal: (3) Anxiety: Plan This is a 44 year old female with past medical history of alcohol abuse and anxiety who presented to the ER on 03/08 for alcohol withdrawal. While in the ED, she had stable CBC/BMP. Alcohol level was elevated at 132.4. She was given IV fluids, thiamine, and folic acid. Vital signs stable with stable HR and BP. Afebrile. #Alcohol withdrawal w/ multiple previous admissions regarding withdrawal over last ~3 months. alcohol level 132.4 on admission. s/p Librium 10mg TID w/ low AWSS scores (mostly relating to anxiety) --> discussed w/ patient that if she has only been drinking alcohol for 5 days then she is at low risk for adverse effects from withdrawal. She reports she "detoxed" overnight and is ready to go home. Resume home gabapentin dosing on discharge. Thiamine, Folic acid, Multi vitamin daily at home. s/p LR 125ml/hr x 2 bags. Not interested in inpatient rehab programs; Does have naltrexone and acamprosate prescriptions - can be further discussed w/ her PCP on discharge. #Anxiety Continue Lexapro Resume Gabapentin Hydroxyzine prn for breakthrough anxiety. Hold Xanax HS while on Librium/Ativan. ---> patient interested in stopping this completely - advised follow up w/ PCP. Per patient she has not been taking it for ~ 4-5 days. Discharged to home 03/09. Admission HPI Per Admitting Provider This is a 44 year old female with past medical history of alcohol abuse and anxiety who presented to the ER on 03/08 for alcohol withdrawal. Angeles was seen and examined this morning. She reports that she had another relapse of her sobriety and has been having alcohol for about 5 days. She has been averaging 2-3 bottles of wine per day and did have half a bottle of wine this morning prior to coming in. She states that she has had a difficult summer with staying sober but previous to this summer was sober for about 3 years. She is not interested in inpatient rehab. She also has not been taking Xanax or gabapentin at home the past 4 days either. Patient reports she is unsure of where the prescriptions went as she was drinking. She states she did take oxycodone from her friend yesterday evening to help with sleep and avoid drinking. This morning she woke and had shakes and N/V. Presently she had a headache and felt shaky/anxious. She states she does not believe she has had withdrawal seizures in the past but has had auditory hallucinations. States she is following with a psychiatrist outpatient now as well. Denies CP, SOB, abdominal pain, LE edema, urinary dysuria/frequency. . While in the ED, she had stable CBC/BMP. Alcohol level was elevated at 132.4. She was given IV fluids, thiamine, and folic acid. Vital signs stable with stable HR and BP. Afebrile. Discharge Exam Constitutional WD/WN, vitals as above Respiratory normal respiratory effort Skin no rashes, warm and dry Neurologic PERRL, EOMI, accommodation nl, no face palsy, no dysarthria Psychiatric A+Ox3, euthymic affect Discharge Plan Discharge Items Patient Disposition: Home - Self-Care Reason For Visit: ALCOHOL WITHDRAWAL Discharge Diagnosis: Alcohol abuse Condition on Discharge: Fair Activity: Resume your previous activity Non-emergency contact: Primary Care Provider Call non-emergency contact if: you have any medication questions, your symptoms worsen and you have a fever Follow-up/Referrals: Jair Cui, [Primary Care Provider] - 03/16/25 10:00 am (Primary Care hospital follow up scheduled on 03/16/25 at 10:00 with Jair Cui ) Diet: Regular Addtl Attending Provider Instructions: Ms. Woo, You were recently admitted to detox from alcohol. You were treated with Librium and Ativan and are feeling well today. Upon discharge. Please continue your outpatient medications including gabapentin. - A prescripti on has been sent to you to continue on this. Please abstain from alcohol. Follow up with your PCP within 1-2 weeks of discharge. Best of luck! Pending Studies at Discharge: No Stand-Alone Forms: My [employer], Work/School Release, Smoking Cessation Medications and DC Order Prescriptions: New gabapentin 100 mg Capsule 200 mg PO BID Qty: 60 0RF Continued valacyclovir 500 mg tablet 500 mg PO BID PRN (Reason: herpes flare) Qty: 20 3RF Rx Instructions: 500 mg twice daily x 3 days for Genital herpes flare. 2 g twice daily x 1 day for cold sore flare. escitalopram oxalate [Lexapro] 5 mg tablet 5 mg PO DAILY acamprosate 333 mg tablet,delayed release (DR/EC) 333 mg PO TID Qty: 90 5RF Rx Instructions: administer with mid-day and evening meals naltrexone 50 mg tablet 25 mg PO BID Qty: 30 5RF Rx Instructions: take with lunch and dinner multivitamin Tablet 1 tab PO DAILY ondansetron HCl 4 mg tablet 4 mg PO DAILY PRN (Reason: Nausea) 30 Days Qty: 20 0RF epinephrine [EpiPen] 0.3 mg/0.3 mL Auto-Injector 0.3 mg IM DIRECTED PRN (Reason: Allergic Reaction) dicyclomine 10 mg Capsule 10 mg PO Q4H PRN (Reason: abdominal pain) Qty: 12 0RF hydroxyzine HCl 25 mg tablet 25 mg PO Q8H PRN (Reason: anxiety) Qty: 30 0RF alprazolam 0.5 mg tablet extended release 24 hr 0.5 mg PO HS thiamine HCl (vitamin B1) 100 mg tablet 100 mg PO DAILY Qty: 30 0RF Discontinued gabapentin 100 mg capsule 200 mg PO BID PRN (Reason: anxiety) Rx Instructions: Managed by psych chlordiazepoxide HCl 25 mg capsule 25 mg PO UD Patient Comments: last filled 02/21 4 day supply #20 Rx Instructions: Take 2 tabs 4 times daily x 1 day, 2 tabs 3 times daily 2nd day, 2 tabs 2 times daily 3rd day, and 2 tablets 4th day. (20 tabs) Discharge Orders: Discharge Order (Routine); Ordered 03/09/25 Ordered By: Ira Mims Admission Data Admit Date/Time: 03/08/25 09:26 Attending Provider: Miguelito Morin Admit Provider: Miguelito Morin Primary Care Provider: Jair Cui Other Providers: Miguelito Morin Other Interventions: Discharge Summary Assessment (RN) Last Done: 03/09/25 12:46 Hospital Stay Data Consultations 03/08/25 08:43 ED Decision to Admit Stat Pending Results Patient Have Any Pending Studies at Discharge: No Discharge Instructions Given to Patient (Per Discharging Provider) Ms. Woo, You were recently admitted to detox from alcohol. You were treated with Librium and Ativan and are feeling well today. Upon discharge. Please continue your outpatient medications including gabapentin. - A prescription has been sent to you to continue on this. Please abstain from alcohol. Follow up with your PCP within 1-2 weeks of discharge. Best of luck! Supervising Physician Co-Signing Physician Notes The patient was not seen by me. The chart was reviewed. Case discussed with ARTHUR Oseguera. Agree with assessment and plan Total Time Total Time Spent Total Time Spent (In Minutes): 45 Total Time Includes: Examination of the Patient, Discharge Planning, Medication Reconciliation and Other Coding Level of Care Code 08918 INP/OBS DISCH >30 MIN Diagnoses Alcohol abuse F10.10 Alcohol withdrawal F10.930 Complication of substance-induced condition: uncomplicated Anxiety F41.9
[2025-03-09 12:47] VITALS: BP 126/83
[2025-03-15 14:23] LABS: 7-Aminoclonaz, Confirm NEGATIVE ng/mL (<25); Hydro-Alp Ur, GC/MS NEGATIVE ng/mL (<25); Hydrocodone Urine NEGATIVE ng/mL (<50); Hydromor Urine NEGATIVE ng/mL (<50); Hydroxyethylflurazepam, Conf NEGATIVE ng/mL (<50); Hydroxymidazolam Ur, GC/MS NEGATIVE ng/mL (<50); Lorazepam, Ur GC/MS NEGATIVE ng/mL (<50); Nordiazepam, Confirm NEGATIVE ng/mL (<50); Noroxycodone Urine 1360 ng/mL (<50); Oxazepam Ur, GC/MS 648 ng/mL (<50); Oxymorph Urine 1490 ng/mL (<50); Temazepam, Confirm NEGATIVE ng/mL (<50)
== END 2025-03-09 13:37 | disposition home or self-care (01) | DRG 897 ==
LOC: SUATTDRO → ED 07:34 → EDINP 09:26 → INTOOBSV 09:26 → 2S 11:22

== ENCOUNTER 2025-04-03 08:16 | Inpatient (IN) ==
--- NOTE | 2025-04-03 08:36 | Emergency Department Note ---
Impression & Plan Alcohol abuse, Alcohol withdrawal ED Provider Note HISTORY OF PRESENT ILLNESS: Patient is a 44-year-old female presenting requesting formal detox from alcohol. Patient reports that her last drink was this morning. She states that she drinks the equivalent of 3 bottles of wine daily. States that she has been doing this for the last month. She does not remember her last stent at clinical sobriety. Reports that she has undergone formal alcohol detox in the past. She reports that she has had seizures after attempting to detox, with her last seizure being about 5 years ago. She currently is complaining of nausea and complains of feeling very tremulous. She denies any chest pain or shortness of breath. ROS: as above PHYSICAL EXAM: Constitutional: Patient appears in no acute distress. Patient is tearful on examination HENT: Head: Normocephalic and atraumatic. Eyes: EOMI, PERRL Mouth/Throat: Mucous membranes moist. Neck: Trachea midline. Neck supple. Cardiovascular: RRR, No murmurs, rubs or gallops. Intact distal pulses. Pulmonary/Chest: No respiratory distress. Breath sounds clear and equal bilaterally. No wheezes or rales. Abdominal: Abdomen soft, no tenderness, rebound or guarding. Musculoskeletal: No edema, tenderness or deformity noted. Skin: Warm and dry. No rash, erythema, pallor or cyanosis Psychiatric: Appropriate mood and affect for situation. Neurological: Alert and keenly responsive. CN II-XII grossly intact, moving all extremities equally and fully. MDM: - Vitals signs showed tachycardia - History obtained via patient. History as above. - Chronic conditions affecting care: Alcohol abuse - Differential diagnoses include, but are not limited to: Alcohol intoxication; alcohol withdrawal; drug intoxication; electrolyte abnormality; dysrhythmia - Order placed for continuous cardiac monitoring. At this time, monitor showed rate of 77 bpm with normal sinus rhythm, per my interpretation. - External medical records reviewed. Discharge summary dated 03/09/2025 was reviewed. Patient has a history of alcohol abuse and anxiety and presented for alcohol withdrawal. She had alcohol level 132.4 on admission. - Laboratory workup interpreted by myself showed normal WBC; stable electrolytes; normal PT/INR; normal AST/ALT; elevated alcohol (297.1) - Patient given 4 mg IV zofran. Given PO folate, PO multivitamin and Po thiamine - Alcohol withdrawal severity score of a 5 on arrival. Despite patient's elevated alcohol level, she is complaining of feeling very tremulous and withdrawing. Will continue to monitor. - Discussion was had with director case management about patient's case and need for admission - Hospitalist consulted for admission - [facility] ASSESSMENT AND PLAN: Diagnosis: Alcohol abuse; alcohol withdrawal Plan: Admit Past Med/Surg History Problem List (Updated 03/27/25 @ 22:54 by Cem Salinas DO) Bacteria in urine (Acute) Anxiety (Acute) Nausea & vomiting (Acute) Drug side effects (Acute) Acute anxiety (Acute) Alcohol abuse (Acute) Dyspnea Alcohol withdrawal (Acute) Alcohol dependence (Acute) Dense breast tissue Lump of right breast Hx of herpes genitalis Hx of drug abuse (Acute) Hx drug and alcohol abuse. Medical History Alcohol withdrawal with inpatient treatment Chronic prescription benzodiazepine use Alcohol use disorder Anxiety Open wound of second toe of left foot Cellulitis of second toe of left foot Hx of cold sores Somatic dysfunction of pelvic region Somatic dysfunction of lumbar region Somatic dysfunction of thoracic region Somatic dysfunction of cervical region Somatic dysfunction of rib Withdrawal syndrome Intentional overdose Surgical History History of oral surgery History of D&C Family History Sister Breast cancer Denies family history of Ovarian cancer Prostate cancer Myocardial infarction Colorectal cancer Social History Smoking Status: Never smoker Second Hand Exposure: No; Do You Dip or Chew Tobacco: No; Hx Alcohol Use: Yes Alcohol type: wine Hx Substance Use: No Preferred Language: Montserratian Communication Ability: Effective Visual Impairment: No Limitations Hearing Ability: Normal Vacuum Repairer Required: No Beliefs That Will Affect Care: None marital status: Current Living Situation: Alone Current Living Situation Comment: Lives at home alone current occupational status: employed 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 How many Children do You have: 0 Feels Safe at Home: Yes Childhood Exposure to Second-Hand Smoke: No Diet: regular caffeine: Yes during the past year weight has: remained stable Dental Care, Regularly: Yes Physical Activity Frequency: Daily Seatbelt Use: always Sunscreen Use: Yes Do you think of yourself as: straight/heterosexual Sexual Activity: has been sexually active within the last 12 months Gender Identity: Female Assistive Devices: None Allergies Allergies Allergy/AdvReac Type Severity Reaction Status Date / Time hornet venom Allergy Severe Anaphylaxis Verified 03/27/25 09:18 Home Meds Home Medications Medication Instructions Recorded Confirmed epinephrine 0.3 mg/0.3 mL 0.3 mg IM DIRECTED PRN Allergic 01/28/25 04/03/25 injection, auto-injector (EpiPen) Reaction escitalopram oxalate 10 mg tablet 10 mg PO DAILY 03/27/25 04/03/25 ibuprofen 200 mg tablet (Advil) 200 mg PO Q6H PRN Pain 03/27/25 04/03/25 lorazepam 0.5 mg tablet (Ativan) 0.5 mg PO DAILY 04/03/25 04/03/25 Previous Rx's Medication Instructions Recorded ondansetron HCl 4 mg tablet 4 mg PO DAILY PRN Nausea 30 days 12/01/24 #20 tabs dicyclomine 10 mg capsule 10 mg PO Q4H PRN abdominal pain 01/30/25 #12 caps hydroxyzine HCl 25 mg tablet 25 mg PO Q8H PRN anxiety #30 tabs 01/30/25 valacyclovir 500 mg tablet 500 mg PO BID PRN herpes flare #20 02/25/25 tabs gabapentin 100 mg capsule 200 mg (2 x 100 mg) PO BID #60 caps 03/09/25 Results & Data (ED) Vital Signs Vital Signs - 24 hr 04/03/25 08:17 04/03/25 08:57 04/03/25 09:09 Temperature 36.4 C L Temperature Source Skin Pulse Rate 94 H 85 Pulse Rate [Apical] Respiratory Rate 20 Respiratory Effort / Characteristics Non-Labored Spontaneous Respiratory Depth Normal Respiratory Pattern Regular Blood Pressure 133/90 Blood Pressure [Right Arm] Blood Pressure Mean 104 Blood Pressure Mean [Right Arm] Pulse Oximetry 95 92 Oxygen Delivery Method Room Air Room Air Sepsis Recent Fever Within 48 Hours No Sepsis New/Unexplained Change in Mental Status N/A Sepsis Action Taken by Nursing No Action Required 04/03/25 10:09 Temperature Temperature Source Pulse Rate Pulse Rate [Apical] 77 Respiratory Rate 17 Respiratory Effort / Characteristics Respiratory Depth Respiratory Pattern Blood Pressure Blood Pressure [Right Arm] 130/77 Blood Pressure Mean Blood Pressure Mean [Right Arm] 94 Pulse Oximetry 94 Oxygen Delivery Method Room Air Sepsis Recent Fever Within 48 Hours Sepsis New/Unexplained Change in Mental Status Sepsis Action Taken by Nursing Laboratory Data 04/03/25 09:00 04/03/25 09:00 Lab Results 04/03/25 Range/Units 09:00 WBC 4.94 (4.8-10.8) K/ul RBC 4.58 (4.20-5.40) M/uL Hgb 14.5 (12.0-16.0) g/dl Hct 43.5 (37.0-47.0) % MCV 95.0 (80.0-100.0) fL MCH 31.7 (25.0-34.0) pg MCHC 33.3 (32.0-36.0) g/dL RDW Std Deviation 47.8 H (36.4-46.3) fL RDW Coeff of Zahraa 13.5 (11.5-14.5) % Plt Count 244 (130-400) K/uL MPV 9.9 (9.4-12.4) fL Immature Gran % (Auto) 0.4 % Neut % (Auto) 55.9 % Lymph % (Auto) 34.0 % [place] % (Auto) 3.8 % Eos % (Auto) 5.3 % Baso % (Auto) 0.6 % Neut # (Auto) 2.76 (1.40-6.50) K/uL Lymph # (Auto) 1.68 (1.20-3.40) K/uL [place] # (Auto) 0.19 (0.11-0.59) K/uL Eos # (Auto) 0.26 (0.00-0.50) K/uL Baso # (Auto) 0.03 (0.00-0.20) K/uL Immature Gran # (Auto) 0.02 (0.01-0.20) K/uL PT 11.2 (9.0-12.0) Seconds INR 1.0 (0.9-1.1) Sodium 142 (136-145) mmol/L Potassium 3.6 (3.5-5.1) mmol/L Chloride 106 (98-107) mmol/L Carbon Dioxide 25 (21-32) mmol/L Anion Gap 11 (3-11) BUN 10 (6-23) mg/dl Creatinine 0.85 (0.6-1.2) mg/dl Est Cr Clr Drug Dosing 87.3 ml/min eGFR 86.05 BUN/Creatinine Ratio 11.8 (10-20) Glucose 122 H (70-99(Fasting)) mg/dl Calcium 8.7 (8.6-10.3) mg/dl Total Bilirubin 0.3 (0.2-1.0) mg/dl AST 15 (13-39) U/L ALT 11 (7-52) U/L Alkaline Phosphatase 34 (34-104) U/L Total Protein 7.4 (6.0-8.3) gm/dl Albumin 4.6 (3.4-5.0) gm/dl Globulin 2.8 (2.5-4.0) gm/dl Albumin/Globulin Ratio 1.6 (0.9-2) Lipase 8 L (11-82) U/L HCG, Qual Negative (Negative) Ethyl Alcohol mg/dL 297.1 H (<10.0) mg/dl Administered Medications Folic Acid (Folic Acid 1 Mg Tab) 1 mg PO [facility] Stop: 05/03/25 09:09 Last Admin: 04/03/25 10:07 Dose: 1 mg Documented By: JADIEL Multivitamins (Multivitamin Tab) 1 tab PO [facility] Stop: 05/03/25 09:14 Last Admin: 04/03/25 10:07 Dose: 1 tab Documented By: JADIEL Thiamine HCl (Thiamine Hcl 100 Mg Tab) 100 mg PO [facility] Stop: 05/03/25 09:14 Last Admin: 04/03/25 10:07 Dose: 100 mg Documented By: JADIEL Discontinued Medications Ondansetron HCl (Ondansetron Inj 2 Mg/Ml 2 Ml Vial) 4 mg IV NOW STA Stop: 04/03/25 08:32 Last Admin: 04/03/25 08:56 Dose: 4 mg Documented By: JADIEL Discharge Plan Visit Data Chief Complaint: Detox Request Stated Complaint: DETOX ED Provider: Rebecca Kitchen Prescriptions Prescriptions: No Action valacyclovir 500 mg tablet 500 mg PO BID PRN (Reason: herpes flare) Qty: 20 3RF Rx Instructions: 500 mg twice daily x 3 days for Genital herpes flare. 2 g twice daily x 1 day for cold sore flare. ondansetron HCl 4 mg tablet 4 mg PO DAILY PRN (Reason: Nausea) 30 Days Qty: 20 0RF epinephrine [EpiPen] 0.3 mg/0.3 mL Auto-Injector 0.3 mg IM DIRECTED PRN (Reason: Allergic Reaction) dicyclomine 10 mg Capsule 10 mg PO Q4H PRN (Reason: abdominal pain) Qty: 12 0RF hydroxyzine HCl 25 mg tablet 25 mg PO Q8H PRN (Reason: anxiety) Qty: 30 0RF gabapentin 100 mg Capsule 200 mg PO BID Qty: 60 0RF escitalopram oxalate 10 mg tablet 10 mg PO DAILY ibuprofen [Advil] 200 mg Tablet 200 mg PO Q6H PRN (Reason: Pain) lorazepam [Ativan] 0.5 mg tablet 0.5 mg PO DAILY
[2025-04-03] MEDS: ONDANSETRON INJ 2 MG/ML 2 ML VIAL IV STA (08:56)
[2025-04-03 09:21] LABS: Hematocrit (blood only) 43.5 % (37.0-47.0); Hemoglobin 14.5 g/dl (12.0-16.0); Immature Granulocytes # (auto) 0.02 K/uL (0.01-0.20); Immature Granulocytes % (auto) 0.4 %; Mean Corpuscular Hemoglobin 31.7 pg (25.0-34.0); Mean Corpuscular Volume 95.0 fL (80.0-100.0); Platelet Count 244 K/uL (130-400); RDW Standard Deviation 47.8 fL (36.4-46.3); Red Blood Count 4.58 M/uL (4.20-5.40); White Blood Count 4.94 K/ul (4.8-10.8)
[2025-04-03 09:36] LABS: Pregnancy Test, Serum Negative (Negative)
[2025-04-03 09:46] LABS: Alanine Aminotransferase 11.0 U/L (7-52); Albumin Globulin Ratio 1.6 (0.9-2); Albumin Level 4.6 gm/dl (3.4-5.0); Alkaline Phosphatase 34.0 U/L (34-104); Anion Gap 11.0 (3-11); Bilirubin,Total 0.3 mg/dl (0.2-1.0); Blood Urea Nitrogen 10.0 mg/dl (6-23); Calcium 8.7 mg/dl (8.6-10.3); Carbon Dioxide 25.0 mmol/L (21-32); Chloride 106.0 mmol/L (98-107); Creatinine Clr Calc Pharmacy 87.3 ml/min; Globulin 2.8 gm/dl (2.5-4.0); Glucose 122.0 mg/dl (70-99(Fasting)); Lipase 8.0 U/L (11-82); Potassium 3.6 mmol/L (3.5-5.1); Sodium 142.0 mmol/L (136-145); Total Protein 7.4 gm/dl (6.0-8.3)
[2025-04-03 09:53] LABS: INR 1.0 (0.9-1.1); Prothrombin Time 11.2 Seconds (9.0-12.0)
[2025-04-03] MEDS: FOLIC ACID 1 MG TAB PO SCH (10:07)
[2025-04-03] MEDS: MULTIVITAMIN TAB PO SCH (10:07)
[2025-04-03] MEDS: THIAMINE HCL 100 MG TAB PO SCH (10:07)
[2025-04-03] MEDS ORDERED: PHENobarbital PO Alcohol Withdrawal PO STA (12:27)
[2025-04-03] MEDS: LORazepam 1 MG TAB SL STA (14:20)
--- NOTE | 2025-04-03 14:43 | History & Physical Report ---
Date of Service April 03, 2025 Assessment & Plan (1) Alcohol withdrawal: (2) Chronic prescription benzodiazepine use: (3) Alcohol use disorder, severe, dependence: Plan In summary this is a 44-year-old female who presented to the [facility] on 04/03 due to symptomatic alcohol withdrawal requesting pharmacologic management of their withdrawal. PA WSS score of 8; we will initiate frontloaded phenobarbital management, given the patient's normal BMI and low fat percentage, we will not go with a full weight-based regimen at this time given the risk of excessive sedation however we will have low threshold of escalating doses if necessary based on their goal RASS of -1 to 0 Continuous cardiac telemetry Seizure precautions Continue with phenobarbital protocol No indication for daily laboratory testing at this time Admission and Anticipated Discharge Date Admission Date: April 03, 2025 History of Present Illness Chief Complaint: Symptomatic alcohol withdrawal Primary Care Provider: Jair Cui DO Ms. Woo is a 44-year-old female whose active medical conditions include alcohol use disorder with dependence who presents to the [facility] on 04/03 due to symptomatic alcohol withdrawal. The patient states that her last drink was in the morning of 04/03; citing that they drink approximately 3-4 bottles of wine per day and occasionally has a few mixed drinks with vodka. They expressed frustration with regard to their recurrent presentations to the emergency department, their continued use of alcohol, and feeling need to "get out". Allergies Allergy/AdvReac Type Severity Reaction Status Date / Time hornet venom Allergy Severe Anaphylaxis Verified 03/27/25 09:18 Home Medications Medication Instructions Recorded Confirmed Type ondansetron HCl 4 mg tablet 4 mg PO DAILY PRN Nausea 30 days 12/01/24 04/03/25 Rx #20 tabs epinephrine 0.3 mg/0.3 mL 0.3 mg IM DIRECTED PRN Allergic 01/28/25 04/03/25 History injection, auto-injector (EpiPen) Reaction dicyclomine 10 mg capsule 10 mg PO Q4H PRN abdominal pain 01/30/25 04/03/25 Rx #12 caps hydroxyzine HCl 25 mg tablet 25 mg PO Q8H PRN anxiety #30 tabs 01/30/25 04/03/25 Rx valacyclovir 500 mg tablet 500 mg PO BID PRN herpes flare #20 02/25/25 04/03/25 Rx tabs gabapentin 100 mg capsule 200 mg (2 x 100 mg) PO BID #60 caps 03/09/25 04/03/25 Rx escitalopram oxalate 10 mg tablet 10 mg PO DAILY 03/27/25 04/03/25 History ibuprofen 200 mg tablet (Advil) 200 mg PO Q6H PRN Pain 03/27/25 04/03/25 History lorazepam 0.5 mg tablet (Ativan) 0.5 mg PO DAILY 04/03/25 04/03/25 History Past Med/Surg History Problem List (Updated 04/03/25 @ 14:41 by Mark Callahan DO) Chronic prescription benzodiazepine use Alcohol use disorder, severe, dependence Alcohol withdrawal (Acute) Medical History Lump of right breast Dense breast tissue Bacteria in urine Herpes genitalis Alcohol withdrawal with inpatient treatment Alcohol use disorder Anxiety Open wound of second toe of left foot Cellulitis of second toe of left foot Hx of cold sores Somatic dysfunction of pelvic region Somatic dysfunction of lumbar region Somatic dysfunction of thoracic region Somatic dysfunction of cervical region Somatic dysfunction of rib Withdrawal syndrome Intentional overdose Surgical History History of oral surgery History of D&C Family History Sister Breast cancer Denies family history of Ovarian cancer Prostate cancer Myocardial infarction Colorectal cancer Social History Smoking Status: Never smoker Second Hand Exposure: No; Do You Dip or Chew Tobacco: No; Hx Alcohol Use: Yes Alcohol type: wine Hx Substance Use: No Preferred Language: Maltese Communication Ability: Effective Visual Impairment: No Limitations Hearing Ability: Normal Diamond Grader Required: No Beliefs That Will Affect Care: None marital status: Current Living Situation: Alone Current Living Situation Comment: Lives at home alone current occupational status: employed 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 How many Children do You have: 0 Feels Safe at Home: Yes Childhood Exposure to Second-Hand Smoke: No Diet: regular caffeine: Yes during the past year weight has: remained stable Dental Care, Regularly: Yes Physical Activity Frequency: Daily Seatbelt Use: always Sunscreen Use: Yes Do you think of yourself as: straight/heterosexual Sexual Activity: has been sexually active within the last 12 months Gender Identity: Female Assistive Devices: None Review of Systems Review of Systems: Review of cardiovascular, pulmonary, gastrointestinal, genitourinary, neurologic systems was overall unremarkable except for pertinent positives and negatives detailed in the assessment above Physical Exam Physical Exam: General: Adult female in mild acute distress secondary to withdrawal Vital Signs: Reviewed HEENT: Pupils equally round reactive to light, extraocular motion intact; moist mucous membranes Pulmonary: Symmetric chest wall excursion without restriction Cardiovascular: Regular rate and rhythm without murmurs, rubs, or gallops; normal S1 and S2; right radial pulse 2+ with brisk capillary refill Gastrointestinal: Soft, nontender Neurologic: Cranial nerves II through XII grossly intact; no discernible focal weakness nor paresthesia Psychiatric: Alert and oriented to self, place, time; impaired insight with respect to their recurrent hospitalizations, though they expressed goal oriented thoughts of ceasing alcohol use; hypermobile in bed, citing anxiety Skin: Flushed but without additional skin changes or rashes noted Results & Data Results & Data Vital Signs (Past 12 Hours) Vital Signs Temp Pulse Pulse Resp BP BP Pulse Ox 04/03/25 13:00 36.8 C 73 18 129/84 96 04/03/25 12:54 70 18 129/84 04/03/25 12:00 36.8 C 80 20 129/84 96 04/03/25 10:09 77 17 130/77 94 04/03/25 09:09 85 04/03/25 08:57 92 04/03/25 08:17 36.4 C L 94 H 20 133/90 95 O2 Del Method 04/03/25 13:00 Room Air 04/03/25 12:54 04/03/25 12:00 Room Air 04/03/25 10:09 Room Air 04/03/25 09:09 04/03/25 08:57 Room Air 04/03/25 08:17 Room Air Code Status & VTE Plan Code Status Full Code VTE Prophylaxis Plan VTE Prophylaxis will be ordered: Yes PG Care Time/CCT Total # of Minutes Spent Total Time Spent with Patient: Total time spent is greater than 50% in coordination of care (as documented) at patient's floor/unit and/or counseling patient: Coding Level of Care Code 20010 INT INP/OBS CARE 2/55MIN Diagnoses Alcohol withdrawal syndrome, with delirium F10.931 Complication of substance-induced condition: with delirium Chronic prescription benzodiazepine use Z79.899 Alcohol use disorder, severe, dependence F10.20 (1) Alcohol withdrawal Complication of substance-induced condition: with delirium Qualified Code(s): F10.931 - Alcohol use, unspecified with withdrawal delirium
[2025-04-03] MEDS: ONDANSETRON INJ 2 MG/ML 2 ML VIAL IV PRN (16:12)
[2025-04-03] MEDS: LACTATED RINGER'S 1,000 ML IV SCH (19:00)
[2025-04-03] MEDS ORDERED: METOCLOPRAMIDE HCL INJ 5 MG/ML 2 ML VIAL IV PRN (19:38)
[2025-04-03] MEDS: LORazepam 1 MG TAB SL PRN (21:40)
[2025-04-04 07:02] LABS: Alanine Aminotransferase 11.0 U/L (7-52); Albumin Globulin Ratio 1.7 (0.9-2); Albumin Level 3.9 gm/dl (3.4-5.0); Alkaline Phosphatase 31.0 U/L (34-104); Anion Gap 6.0 (3-11); Bilirubin,Total 0.8 mg/dl (0.2-1.0); Blood Urea Nitrogen 13.0 mg/dl (6-23); Calcium 8.4 mg/dl (8.6-10.3); Carbon Dioxide 29.0 mmol/L (21-32); Chloride 101.0 mmol/L (98-107); Creatinine Clr Calc Pharmacy 85.3 ml/min; Globulin 2.3 gm/dl (2.5-4.0); Glucose 93.0 mg/dl (70-99(Fasting)); Potassium 3.9 mmol/L (3.5-5.1); Sodium 136.0 mmol/L (136-145); Total Protein 6.2 gm/dl (6.0-8.3)
--- NOTE | 2025-04-04 07:09 | Hospitalist Progress Note ---
Date of Service April 04, 2025 Assessment & Plan (1) Alcohol withdrawal: (2) Chronic prescription benzodiazepine use: (3) Alcohol use disorder, severe, dependence: Plan In summary this is a 44-year-old female who presented to the [facility] on 04/03 due to symptomatic alcohol withdrawal requesting pharmacologic management of their withdrawal; the patient's last alcoholic drink was in the morning of 04/03. #Alcohol withdrawal // Alcohol use disorder with dependence PA WSS score of 8; we will initiate frontloaded phenobarbital management, given the patient's normal BMI and low fat percentage, we will not go with a full weight-based regimen at this time given the risk of excessive sedation however we will have low threshold of escalating doses if necessary based on their goal RASS of -1 to 0 Continuous cardiac telemetry Seizure precautions Continue with phenobarbital protocol - Continue thiamine and folic acid supplementation - Continue metoclopramide 10 mg IV every 6 hours as needed for nausea No indication for daily laboratory testing at this time #Generalized anxiety disorder Chronic condition, managed in the outpatient setting with escitalopram, gabapentin, and as needed ativan; considering the patient's alcohol dependence and lack of evidence supporting benzodiazepines for management of JAZLYN, we will not continue ativan for this condition; furthermore, gabapentin has little to no evidence for JAZLYN, and thus this will be discontinued as well; the patient has not noted any benefit with escitalopram, thus we will transition to sertraline during their hospitalization with outpatient titration to follow Admission and Anticipated Discharge Date Admission Date: April 03, 2025 Subjective Ms. Woo is a 44-year-old female whose active medical conditions include alcohol use disorder with dependence who presents to the [facility] on 04/03 due to symptomatic alcohol withdrawal. The patient states that her last drink was in the morning of 04/03; citing that they drink approximately 3-4 bottles of wine per day and occasionally has a few mixed drinks with vodka. They expressed frustration with regard to their recurrent presentations to the emergency department, their continued use of alcohol, and feeling need to "get out". Review of Systems Review of Systems: Review of cardiovascular, pulmonary, gastrointestinal, genitourinary, neurologic systems was overall unremarkable except for pertinent positives and negatives detailed in the assessment above Physical Exam Physical Exam: General: Adult female in mild acute distress secondary to withdrawal Vital Signs: Reviewed HEENT: Pupils equally round reactive to light, extraocular motion intact; moist mucous membranes Pulmonary: Symmetric chest wall excursion without restriction Cardiovascular: Regular rate and rhythm without murmurs, rubs, or gallops; normal S1 and S2; right radial pulse 2+ with brisk capillary refill Gastrointestinal: Soft, nontender Neurologic: Cranial nerves II through XII grossly intact; no discernible focal weakness nor paresthesia Psychiatric: Alert and oriented to self, place, time; impaired insight with respect to their recurrent hospitalizations, though they expressed goal oriented thoughts of ceasing alcohol use; hypermobile in bed, citing anxiety Skin: Flushed but without additional skin changes or rashes noted Results & Data Results & Data Vital Signs (Past 12 Hours) Vital Signs Temp Pulse Pulse Resp BP Pulse Ox O2 Del Method 04/04/25 04:52 36.7 C 67 16 125/72 95 Room Air 04/04/25 00:17 36.9 C 72 16 129/73 94 Room Air 04/03/25 22:00 78 04/03/25 20:33 68 22 PG Care Time/CCT Total # of Minutes Spent Total Time Spent with Patient: Total time spent is greater than 50% in coordination of care (as documented) at patient's floor/unit and/or counseling patient: Coding Level of Care Code 51142 SUB INP/OBS CARE 2/35MIN Diagnoses Alcohol withdrawal syndrome, with delirium F10.931 Complication of substance-induced condition: with delirium Chronic prescription benzodiazepine use Z79.899 Alcohol use disorder, severe, dependence F10.20 (1) Alcohol withdrawal Complication of substance-induced condition: with delirium Qualified Code(s): F10.931 - Alcohol use, unspecified with withdrawal delirium
[2025-04-04] MEDS: FOLIC ACID 1 MG TAB PO SCH (08:36)
[2025-04-04] MEDS: THIAMINE HCL 100 MG TAB PO SCH (08:37)
[2025-04-04] MEDS: SERTRALINE HCL 50 MG TABLET PO SCH (08:37)
[2025-04-04] MEDS ORDERED: ESCITALOPRAM OXALATE 10 MG TAB PO SCH (09:00)
[2025-04-05 02:46] VITALS: RESP 16; TEMP 98.2
[2025-04-05 07:29] VITALS: PULSE 75; O2SAT 94
[2025-04-05 07:31] VITALS: BP 122/75
--- NOTE | 2025-04-05 10:38 | Discharge Summary ---
Discharge Summary Date of Service April 05, 2025 Principal Dx & Hospital Course #1 = Principal Diagnosis (1) Alcohol withdrawal: (2) Chronic prescription benzodiazepine use: (3) Alcohol use disorder, severe, dependence: Plan In summary this is a 44-year-old female who presented to the [facility] on 04/03 due to symptomatic alcohol withdrawal requesting pharmacologic management of their withdrawal; the patient's last alcoholic drink was in the morning of 04/03. #Alcohol withdrawal // Alcohol use disorder with dependence PA WSS score of 8; we will initiate frontloaded phenobarbital management, given the patient's normal BMI and low fat percentage, we will not go with a full weight-based regimen at this time given the risk of excessive sedation however we will have low threshold of escalating doses if necessary based on their goal RASS of -1 to 0 Uncomplicated withdrawal with standard phenobarbital protocol; patient requested early discharge in order to attend one of their multiple jobs on 04/05, after discussion of the risks regarding early discharge and thorough education regarding avoiding any sedating medications including but not limited to benzodiazepines, alcohol, narcotics while taking phenobarbital, the patient was discharged with strict return precautions #Generalized anxiety disorder Chronic condition, managed in the outpatient setting with escitalopram, gabapentin, and as needed ativan; considering the patient's alcohol dependence and lack of evidence supporting benzodiazepines for management of JAZLYN, we will not continue ativan for this condition; furthermore, gabapentin has little to no evidence for JAZLYN, and thus this will be discontinued as well; the patient has not noted any benefit with escitalopram, thus we will transition to sertraline during their hospitalization with outpatient titration to follow Notes For Next Care Provider Medication Changes From Visit Stop gabapentin, escitalopram, ativan Start Sertraline 50 mg p.o. daily Continue Phenobarbital 30 mg p.o. every 12 hours through the morning of 04/06 Admission HPI Per Admitting Provider Ms. Woo is a 44-year-old female whose active medical conditions include alcohol use disorder with dependence who presents to the [facility] on 04/03 due to symptomatic alcohol withdrawal. The patient states that her last drink was in the morning of 04/03; citing that they drink approximately 3-4 bottles of wine per day and occasionally has a few mixed drinks with vodka. They expressed frustration with regard to their recurrent presentations to the emergency department, their continued use of alcohol, and feeling need to "get out". Discharge Exam General: Adult female in mild acute distress secondary to withdrawal Vital Signs: Reviewed HEENT: Pupils equally round reactive to light, extraocular motion intact; moist mucous membranes Pulmonary: Symmetric chest wall excursion without restriction Cardiovascular: Regular rate and rhythm without murmurs, rubs, or gallops; normal S1 and S2; right radial pulse 2+ with brisk capillary refill Gastrointestinal: Soft, nontender Neurologic: Cranial nerves II through XII grossly intact; no discernible focal weakness nor paresthesia Psychiatric: Alert and oriented to self, place, time; impaired insight with respect to their recurrent hospitalizations, though they expressed goal oriented thoughts of ceasing alcohol use; hypermobile in bed, citing anxiety Skin: Flushed but without additional skin changes or rashes noted Discharge Plan Discharge Items Patient Disposition: Home - Self-Care Reason For Visit: ALCOHOL WITHDRAWAL Discharge Diagnosis: Symptomatic alcohol withdrawal Condition on Discharge: Fair Activity: Per Instructions section Non-emergency contact: Primary Care Provider Call non-emergency contact if: you have any medication questions and your symptoms worsen Follow-up/Referrals: Jair Cui DO [Primary Care Provider] - 04/12/25 10:00 am Diet: Regular Fluids: 2000ml (8 cups) Addtl Attending Provider Instructions: You were admitted to [facility] due to symptomatic alcohol withdrawal. Your stay, overall, was uncomplicated. After discussion of potential early discharge due to concern of possible job security, it was determined that we would discharge you slightly earlier than usually expected for patients who are struggling with alcohol withdrawal. It is imperative with this condition that you take the medications that we prescribed at discharge exactly as they are prescribed, and avoid any additional benzodiazepines, alcohol use, or other medications that may cause respiratory suppression or altered mental status including but not limited to narcotics, marijuana, cocaine, stimulants, and other common recreational drugs. If you begin to experience recurrent symptoms of withdrawal after discharge, please immediately return to the emergency department for evaluation. This is unlikely, but may occur. Given your concomitant struggles with generalized anxiety in the setting of your alcohol use, your previously prescribed medications in the outpatient setting for management of this though these are not optimal nor have they been especially helpful per your report at the time of your admission. I recommend discontinuation of your escitalopram, Ativan, and gabapentin. Instead, I recommend continuation of sertraline 50 mg p.o. daily with close follow-up with your primary care physician to discuss increasing to 100 mg p.o. daily. Furthermore, I strongly recommend continued follow-up with outpatient alcohol rehabilitation resources and services, which you are already established with. Pending Studies at Discharge: No Stand-Alone Forms: [facility] Medications and DC Order Prescriptions: New thiamine HCl (vitamin B1) 100 mg Tablet 100 mg PO QAM 30 Days Qty: 30 0RF phenobarbital 30 mg Tablet 30 mg PO Q12H 1 Days Qty: 2 0RF folic acid 1 mg Tablet 1 mg PO QAM 30 Days Qty: 30 0RF sertraline 50 mg Tablet 50 mg PO QAM 30 Days Qty: 30 0RF Continued valacyclovir 500 mg tablet 500 mg PO BID PRN (Reason: herpes flare) Qty: 20 3RF Rx Instructions: 500 mg twice daily x 3 days for Genital herpes flare. 2 g twice daily x 1 day for cold sore flare. epinephrine [EpiPen] 0.3 mg/0.3 mL Auto-Injector 0.3 mg IM DIRECTED PRN (Reason: Allergic Reaction) dicyclomine 10 mg Capsule 10 mg PO Q4H PRN (Reason: abdominal pain) Qty: 12 0RF Discontinued ondansetron HCl 4 mg tablet 4 mg PO DAILY PRN (Reason: Nausea) 30 Days Qty: 20 0RF hydroxyzine HCl 25 mg tablet 25 mg PO Q8H PRN (Reason: anxiety) Qty: 30 0RF gabapentin 100 mg Capsule 200 mg PO BID Qty: 60 0RF escitalopram oxalate 10 mg tablet 10 mg PO DAILY ibuprofen [Advil] 200 mg Tablet 200 mg PO Q6H PRN (Reason: Pain) lorazepam [Ativan] 0.5 mg tablet 0.5 mg PO DAILY Discharge Orders: Discharge Order (Routine); Ordered 04/05/25 Ordered By: Mark Pineda/Other Patient Handouts: Addiction Disease, Alcoholism Resources Admission Data Admit Date/Time: 04/03/25 11:12 Attending Provider: Mark Callahan Admit Provider: Mark Callahan Primary Care Provider: Jair Cui Other Providers: Mark Callahan Other Interventions: Discharge Summary Assessment (RN) Last Done: 04/05/25 07:30 Hospital Stay Data Consultations 04/03/25 11:01 ED Decision to Admit Stat Pending Results Patient Have Any Pending Studies at Discharge: No Discharge Instructions Given to Patient (Per Discharging Provider) You were admitted to [facility] due to symptomatic alcohol w ithdrawal. Your stay, overall, was uncomplicated. After discussion of potential early discharge due to concern of possible job security, it was determined that we would discharge you slightly earlier than usually expected for patients who are struggling with alcohol withdrawal. It is imperative with this condition that you take the medications that we prescribed at discharge exactly as they are prescribed, and avoid any additional benzodiazepines, alcohol use, or other medications that may cause respiratory suppression or altered mental status including but not limited to narcotics, marijuana, cocaine, stimulants, and other common recreational drugs. If you begin to experience recurrent symptoms of withdrawal after discharge, please immediately return to the emergency department for evaluation. This is unlikely, but may occur. Given your concomitant struggles with generalized anxiety in the setting of your alcohol use, your previously prescribed medications in the outpatient setting for management of this though these are not optimal nor have they been especially helpful per your report at the time of your admission. I recommend discontinuation of your escitalopram, Ativan, and gabapentin. Instead, I recommend continuation of sertraline 50 mg p.o. daily with close follow-up with your primary care physician to discuss increasing to 100 mg p.o. daily. Furthermore, I strongly recommend continued follow-up with outpatient alcohol rehabilitation resources and services, which you are already established with. Total Time Total Time Spent Total Time Spent (In Minutes): I personally spent 40 minutes in the coordination of the patient's discharge including counselling at bedside, physical exam, chart review, medication reconciliation, and coordination of outpatient addiction rehabilitation resources Coding Level of Care Code 68986 INP/OBS DISCH >30 MIN Diagnoses Alcohol withdrawal syndrome, with delirium F10.931 Complication of substance-induced condition: with delirium Chronic prescription benzodiazepine use Z79.899 Alcohol use disorder, severe, dependence F10.20
== END 2025-04-05 09:51 | disposition home or self-care (01) | DRG 897 ==
LOC: ED 08:16 → EDINP 11:12 → 2S 12:28

== ENCOUNTER 2025-05-24 13:35 | Observation (INO) ==
[2025-05-24 14:31] LABS: Hematocrit (blood only) 44.3 % (37.0-47.0); Hemoglobin 15.5 g/dL (12.0-16.0); Immature Granulocytes # (auto) 0.01 K/uL (0.01-0.20); Immature Granulocytes % (auto) 0.1 %; Mean Corpuscular Hemoglobin 32.5 pg (25.0-34.0); Mean Corpuscular Volume 92.9 fL (80.0-100.0); Platelet Count 237 K/uL (130-400); RDW Standard Deviation 42.7 fL (36.4-46.3); Red Blood Count 4.77 M/uL (4.20-5.40); White Blood Count 6.84 K/ul (4.8-10.8)
[2025-05-24 14:56] LABS: Alanine Aminotransferase 22.0 U/L (7-52); Albumin Globulin Ratio 1.3 (0.9-2); Albumin Level 4.4 gm/dl (3.4-5.0); Alkaline Phosphatase 36.0 U/L (34-104); Anion Gap 10.0 (3-11); Bilirubin,Total 0.3 mg/dl (0.2-1.0); Blood Urea Nitrogen 10.0 mg/dl (6-23); Calcium 8.9 mg/dl (8.6-10.3); Carbon Dioxide 29.0 mmol/L (21-32); Chloride 102.0 mmol/L (98-107); Creatinine Clr Calc Pharmacy 109.2 ml/min; Globulin 3.4 gm/dl (2.5-4.0); Glucose 116.0 mg/dl (70-99(Fasting)); Potassium 3.9 mmol/L (3.5-5.1); Sodium 141.0 mmol/L (136-145); Total Protein 7.8 gm/dl (6.0-8.3)
--- NOTE | 2025-05-24 15:19 | Emergency Department Note ---
Impression & Plan Alcohol use disorder, severe, dependence, Alcoholic intoxication, Alcohol withdrawal syndrome ED Provider Note NAME: DAGMAR LI AGE: 44 SEX: F : 1980 ARRIVES VIA: Walk-In INFORMANT: Patient, ED PROVIDER(S): Carito Trujillo MD CHIEF COMPLAINT: Detox HPI: This this is a 44-year-old female presenting for concerns of detox. Patient states that she had been drinking about 4 bottles of wine per day. She notes requesting detox. She states no falls, chest pain, shortness of breath, fever or chills. She states anxiety/headache from alcohol withdrawal currently. No fevers, chills, nausea or vomiting ROS: See above HPI for pertinent positives & negatives. A total of 10 systems reviewed and were otherwise negative. PAST MEDICAL HISTORY: See Below PAST SURGICAL HISTORY: See Below FAMILY HISTORY: See Below SOCIAL HISTORY: See Below HOME MEDICATIONS: See Below ALLERGIES: See Below VITALS: See Below PHYSICAL EXAMINATION: General: disheveled, intoxicated Head: Normocephalic and atraumatic Eyes: Normal inspection, extraocular muscles intact Ear, nose, throat: Normal external exam Neck: Normal range of motion Respiratory: lungs clear to auscultation bilaterally Cardiovascular: Regular rate/rhythm, no murmur GI: soft, nontender, no guarding or rebound Extremities: nontender, moves all extremities Neuro: The patient awake and alert, appropriately conversive, no focal deficits, symmetric faces Skin: Warm, dry, and intact MEDICAL DECISION MAKING: This is a 44-year-old female presenting for alcohol withdrawal/detox. Patient requesting patient is not at this time. She is already tachycardic upon arrival. She states she feels somewhat anxious. She did recently drink. Will get alcohol level and basic blood work. - Bloodwork is reviewed showing no significant leukocytosis, anemia, electrolyte or creatinine abnormality. - Alcohol elevated at 315. - Patient becoming more tremulous and tachycardic while here. Will start on phenobarbital as per hospital policy - Care discussed with [place] hospitalist team for admission Differential diagnosis: Alcohol tox occasion, withdrawal, detox, delirium tremens Diagnostics interpreted by me: ECG: None Cardiac Monitoring: An order was placed for continuous cardiac monitoring. The monitor shows a rate of 120 with sinus tachycardia rhythm. Critical Care Note: I have personally spent 34 minutes of critical care time in the direct management of this patient. This includes bedside care, interpretation of diagnostic studies, and testing, discussion with consultants, patient, and family members, and other required patient management activities. This 34 minutes is in excess of all separately billable procedures. Past Med/Surg History Problem List (Updated 05/24/25 @ 23:37 by Carito Trujillo MD) Alcohol withdrawal syndrome (Acute) Alcoholic intoxication (Acute) Chronic prescription benzodiazepine use Alcohol use disorder, severe, dependence (Acute) Medical History Alcohol withdrawal Lump of right breast Dense breast tissue Herpes genitalis Alcohol withdrawal with inpatient treatment Alcohol use disorder Anxiety Open wound of second toe of left foot Cellulitis of second toe of left foot Hx of cold sores Somatic dysfunction of pelvic region Somatic dysfunction of lumbar region Somatic dysfunction of thoracic region Somatic dysfunction of cervical region Somatic dysfunction of rib Withdrawal syndrome Intentional overdose Surgical History History of oral surgery History of D&C Family History Sister Breast cancer Denies family history of Ovarian cancer Prostate cancer Myocardial infarction Colorectal cancer Social History Smoking Status: Never smoker Second Hand Exposure: No; Do You Dip or Chew Tobacco: No; Hx Alcohol Use: Yes Alcohol type: beer, wine and hard liquor Hx Substance Use: Yes Last Used Substance: Hours (ago) Last Used Substance Other:: xanax Substance Use Type Other:: "pills" Preferred Language: Korean Communication Ability: Effective Visual Impairment: No Limitations Hearing Ability: Normal Hair Tinter Required: No Beliefs That Will Affect Care: None marital status: Current Living Situation: Alone Current Living Situation Comment: Lives at home alone current occupational status: employed 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 How many Children do You have: 0 Feels Safe at Home: Yes Childhood Exposure to Second-Hand Smoke: No Diet: regular caffeine: Yes during the past year weight has: remained stable Dental Care, Regularly: Yes Physical Activity Frequency: Daily Seatbelt Use: always Sunscreen Use: Yes Do you think of yourself as: straight/heterosexual Sexual Activity: has been sexually active within the last 12 months Gender Identity: Female Assistive Devices: None Allergies Allergies Allergy/AdvReac Type Severity Reaction Status Date / Time hornet venom Allergy Severe Anaphylaxis Verified 04/08/25 09:54 Home Meds Home Medications Medication Instructions Recorded Confirmed gabapentin 100 mg capsule 200 mg PO BID 05/24/25 05/24/25 lorazepam 0.5 mg tablet 0.5 mg PO DAILY 05/24/25 05/24/25 Results & Data (ED) Vital Signs Vital Signs - 24 hr 05/24/25 13:35 05/24/25 13:35 05/24/25 13:43 Temperature 36.9 C Temperature Source Temporal Artery Scan Pulse Rate 125 H Pulse Rate [Left Finger] 103 H Respiratory Rate 22 18 Respiratory Effort / Characteristics Non-Labored Respiratory Depth Normal Respiratory Pattern Regular Blood Pressure 141/94 H Blood Pressure [Left Arm] 139/97 Blood Pressure Mean 109 Blood Pressure Mean [Left Arm] 111 Pulse Oximetry 91 95 Oxygen Delivery Method Room Air Room Air Room Air Sepsis Recent Fever Within 48 Hours No Sepsis New/Unexplained Change in Mental Status N/A Sepsis Action Taken by Nursing No Action Required 05/24/25 14:12 05/24/25 15:20 05/24/25 15:41 Temperature Temperature Source Pulse Rate 105 H 105 H Pulse Rate [Left Finger] 113 H Respiratory Rate 19 20 Respiratory Effort / Characteristics Respiratory Depth Respiratory Pattern Blood Pressure 128/79 Blood Pressure [Left Arm] 113/77 Blood Pressure Mean Blood Pressure Mean [Left Arm] 89 Pulse Oximetry 93 Oxygen Delivery Method Room Air Sepsis Recent Fever Within 48 Hours Sepsis New/Unexplained Change in Mental Status Sepsis Action Taken by Nursing 05/24/25 16:20 Temperature Temperature Source Pulse Rate Pulse Rate [Left Finger] 111 H Respiratory Rate 18 Respiratory Effort / Characteristics Respiratory Depth Respiratory Pattern Blood Pressure Blood Pressure [Left Arm] 126/91 Blood Pressure Mean Blood Pressure Mean [Left Arm] 102 Pulse Oximetry 98 Oxygen Delivery Method Sepsis Recent Fever Within 48 Hours Sepsis New/Unexplained Change in Mental Status Sepsis Action Taken by Nursing Laboratory Data 05/24/25 14:10 05/24/25 14:10 Lab Results 05/24/25 Range/Units 14:10 WBC 6.84 (4.8-10.8) K/ul RBC 4.77 (4.20-5.40) M/uL Hgb 15.5 (12.0-16.0) g/dL Hct 44.3 (37.0-47.0) % MCV 92.9 (80.0-100.0) fL MCH 32.5 (25.0-34.0) pg MCHC 35.0 (32.0-36.0) g/dL RDW Std Deviation 42.7 (36.4-46.3) fL RDW Coeff of Zahraa 12.4 (11.5-14.5) % Plt Count 237 (130-400) K/uL MPV 9.6 (9.4-12.4) fL Immature Gran % (Auto) 0.1 % Neut % (Auto) 59.9 % Lymph % (Auto) 30.8 % [place] % (Auto) 5.4 % Eos % (Auto) 3.5 % Baso % (Auto) 0.3 % Neut # (Auto) 4.09 (1.40-6.50) K/uL Lymph # (Auto) 2.11 (1.20-3.40) K/uL [place] # (Auto) 0.37 (0.11-0.59) K/uL Eos # (Auto) 0.24 (0.00-0.50) K/uL Baso # (Auto) 0.02 (0.00-0.20) K/uL Immature Gran # (Auto) 0.01 (0.01-0.20) K/uL Sodium 141 (136-145) mmol/L Potassium 3.9 (3.5-5.1) mmol/L Chloride 102 (98-107) mmol/L Carbon Dioxide 29 (21-32) mmol/L Anion Gap 10 (3-11) BUN 10 (6-23) mg/dl Creatinine 0.68 (0.6-1.2) mg/dl Est Cr Clr Drug Dosing 109.2 ml/min eGFR 109.38 BUN/Creatinine Ratio 14.7 (10-20) Glucose 116 H (70-99(Fasting)) mg/dl Calcium 8.9 (8.6-10.3) mg/dl Total Bilirubin 0.3 (0.2-1.0) mg/dl AST 19 (13-39) U/L ALT 22 (7-52) U/L Alkaline Phosphatase 36 (34-104) U/L Total Protein 7.8 (6.0-8.3) gm/dl Albumin 4.4 (3.4-5.0) gm/dl Globulin 3.4 (2.5-4.0) gm/dl Albumin/Globulin Ratio 1.3 (0.9-2) Ethyl Alcohol mg/dL 315.4 H (<10.0) mg/dl Administered Medications Sodium Chloride (Nss) 1,000 mls @ 100 mls/hr IV .Q10H LEXX Stop: 05/27/25 18:16 Last Admin: 05/24/25 18:47 Dose: 100 mls/hr Documented By: ABRAHAM Discontinued Medications Phenobarbital Sodium 325 mg/ (Sodium Chloride) 52.5 mls @ 315 mls/hr IV ONE ONE Stop: 05/24/25 15:36 Last Infusion: 05/24/25 15:59 Dose: Infused Documented By: nella Admin: 05/24/25 15:41 Dose: 315 mls/hr Documented By: nella Phenobarbital Sodium (Phenobarbital Sodium 130 Mg/Ml Vial) 260 mg 3.6 mg/kg (260 mg) IM ONE ONE Stop: 05/24/25 18:36 Last Admin: 05/24/25 19:33 Dose: 260 mg Documented By: DA Phenobarbital Sodium (Phenobarbital Sodium 130 Mg/Ml Vial) 260 mg 3.6 mg/kg (260 mg) IM ONE ONE Stop: 05/24/25 21:46 Last Admin: 05/24/25 22:07 Dose: 260 mg Documented By: DA Discharge Plan Visit Data Chief Complaint: Detox Request Stated Complaint: DETOX REQUEST ED Provider: Carito Trujillo Discharge Problem: Alcohol use disorder, severe, dependence, Alcoholic intoxication, Alcohol withdrawal syndrome Patient Disposition: Admitted As Inpatient Condition: Fair Discharge Instructions Interventions: ED Discharge Assessment Last Done: 05/24/25 18:05
[2025-05-24] MEDS ORDERED: STAT IV/IM STA (15:20)
--- NOTE | 2025-05-24 17:10 | History & Physical Report ---
Date of Service May 24, 2025 Assessment & Plan (1) Alcohol use disorder, severe, dependence: (2) Alcohol withdrawal: (3) Alcohol withdrawal with inpatient treatment: Plan This a 44-year-old female with a history of severe alcohol use disorder and severe dependence. Presents to the hospital seeking detox. 1. Severe alcohol use disorder: Received a loading dose of phenobarbital in the emergency department. Will add a as needed dose of 130 mg twice daily as needed for agitation Monitor telemetry Fall and seizure precautions Thiamine and folic acid daily IV normal saline 100 cc/h Monitor electrolytes 2. Anxiety disorder: Patient is known to be noncompliant with her medications Often does not pickle solution maker her prescriptions Follows up with PCP outpatient. History of Present Illness Chief Complaint: Alcohol intoxication, withdrawal Primary Care Provider: Jair Cui DO Is a 44-year-old with a history of severe alcohol use disorder, anxiety who presents to the hospital today on account of alcohol intoxication and withdrawal. Patient is requesting detoxification. According to the patient, she has been struggling with alcohol dependence for several years and says she drinks approximately 4 bottles of wine every day and occasionally drinks vodka as well. He said her last drink was earlier today. She presents to the emergency department with tremors, vital signs showed she was tachycardic and had a blood alcohol level of the above 300. She has had previous hospital admissions admissions for alcohol withdrawal. She received loading dose of phenobarbital in the emergency department, will be admitted to the hospital further management. Allergies Allergy/AdvReac Type Severity Reaction Status Date / Time hornet venom Allergy Severe Anaphylaxis Verified 04/08/25 09:54 Home Medications Medication Instructions Recorded Confirmed Type gabapentin 100 mg capsule 200 mg PO BID 05/24/25 05/24/25 History lorazepam 0.5 mg tablet 0.5 mg PO DAILY 05/24/25 05/24/25 History Past Med/Surg History Problem List (Updated 05/23/25 @ 00:07 by Chace Still) Chronic prescription benzodiazepine use Alcohol use disorder, severe, dependence Medical History Alcohol withdrawal Lump of right breast Dense breast tissue Herpes genitalis Alcohol withdrawal with inpatient treatment Alcohol use disorder Anxiety Open wound of second toe of left foot Cellulitis of second toe of left foot Hx of cold sores Somatic dysfunction of pelvic region Somatic dysfunction of lumbar region Somatic dysfunction of thoracic region Somatic dysfunction of cervical region Somatic dysfunction of rib Withdrawal syndrome Intentional overdose Surgical History History of oral surgery History of D&C Family History Sister Breast cancer Denies family history of Ovarian cancer Prostate cancer Myocardial infarction Colorectal cancer Social History Smoking Status: Never smoker Second Hand Exposure: No; Do You Dip or Chew Tobacco: No; Hx Alcohol Use: Yes Alcohol type: wine and hard liquor Hx Substance Use: No Preferred Language: Gabonese Communication Ability: Effective Visual Impairment: No Limitations Hearing Ability: Normal V Belt Inspector Required: No Beliefs That Will Affect Care: None marital status: Current Living Situation: Alone Current Living Situation Comment: Lives at home alone current occupational status: employed 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 Physical Exam Physical Exam: The patient is awake, alert and oriented 3, well developed and well nourished, normocephalic and atraumatic, lying in bed and in no acute distress. HEENT--PERRL, EOMI, mucous membranes and oropharynx mildly dry Neck--supple. No JVD. No bruits. Thyroid normal, trachea midline, no adenopathy. Heart--normal S1 and S2. No murmurs, rubs or gallops. Lungs--clear bilaterally, no respiratory distress, no accessory muscle use. Abdomen--normal bowel sounds and soft. Extremities--no cyanosis or clubbing. No edema. Dermatologic--normal skin turgor, normal color, no abnormal lymph nodes, no rash. Neurologic--cranial nerves II through XII grossly intact.Tremors Rheumatologic--normal range of motion. Psychiatric--normal affect. Results & Data Results & Data Vital Signs (Past 12 Hours) Vital Signs Temp Pulse Pulse Resp BP BP Pulse Ox 05/24/25 16:20 111 H 18 126/91 98 05/24/25 15:41 105 H 20 128/79 05/24/25 15:20 113 H 19 113/77 93 05/24/25 14:12 105 H 05/24/25 13:43 98.4 F 125 H 18 141/94 H 95 05/24/25 13:35 103 H 22 139/97 91 05/24/25 13:35 O2 Del Method 05/24/25 16:20 05/24/25 15:41 05/24/25 15:20 Room Air 05/24/25 14:12 05/24/25 13:43 Room Air 05/24/25 13:35 Room Air 05/24/25 13:35 Room Air PG Care Time/CCT Total # of Minutes Spent Total Time Spent with Patient: Total time spent is greater than 50% in coordination of care (as documented) at patient's floor/unit and/or counseling patient: Coding Level of Care Code 26954 INT INP/OBS CARE 2/55MIN Diagnoses Alcohol use disorder, severe, dependence F10.20 Alcohol withdrawal syndrome, with delirium F10.931 Complication of substance-induced condition: with delirium Alcohol withdrawal with inpatient treatment F10.939 Time Spent (min) 55 (2) Alcohol withdrawal Complication of substance-induced condition: with delirium Qualified Code(s): F10.931 - Alcohol use, unspecified with withdrawal delirium
[2025-05-24] MEDS: SODIUM CHLORIDE 0.9% 1,000 ML IV SCH (18:47)
[2025-05-25] MEDS: ACETAMINOPHEN 325 MG TAB PO PRN (00:38)
[2025-05-25] MEDS: LORazepam 0.5 MG TAB PO ONE (05:07)
[2025-05-25] MEDS: THIAMINE HCL 100 MG TAB PO SCH (08:02)
[2025-05-25] MEDS: FOLIC ACID 1 MG TAB PO SCH (08:02)
--- NOTE | 2025-05-25 11:22 | Hospitalist Progress Note ---
Date of Service May 25, 2025 Assessment & Plan (1) Alcohol use disorder, severe, dependence: (2) Alcohol withdrawal: (3) Alcohol withdrawal with inpatient treatment: Plan This a 44-year-old female with a history of severe alcohol use disorder and severe dependence. Presents to the hospital seeking detox. 1. Severe alcohol use disorder: Received a loading dose of phenobarbital in the emergency department. Will add a dose of 120 mg twice daily as needed for agitation Monitor telemetry Fall and seizure precautions Thiamine and folic acid daily IV normal saline 100 cc/h Monitor electrolytes Feels a lot better today, some tremors 2. Anxiety disorder: Patient is known to be noncompliant with her medications Often does not support services manager her prescriptions Follows up with PCP outpatient. Disposition: Hopefully d/c home tomorrow Admission and Anticipated Discharge Date Admission Date: May 24, 2025 Subjective patient seen and examined, feels better, still some weakness and mild tremors Review of Systems Review of Systems: All systems reviewed are negative, apart from the ones contained in the history. Physical Exam Physical Exam: The patient is awake, alert and oriented 3, well developed and well nourished, normocephalic and atraumatic, lying in bed and in no acute distress. HEENT--PERRL, EOMI, mucous membranes and oropharynx mildly dry Neck--supple. No JVD. No bruits. Thyroid normal, trachea midline, no adenopathy. Heart--normal S1 and S2. No murmurs, rubs or gallops. Lungs--clear bilaterally, no respiratory distress, no accessory muscle use. Abdomen--normal bowel sounds and soft. Extremities--no cyanosis or clubbing. No edema. Dermatologic--normal skin turgor, normal color, no abnormal lymph nodes, no rash. Neurologic--cranial nerves II through XII grossly intact.Tremors Rheumatologic--normal range of motion. Psychiatric--normal affect. Results & Data Results & Data Vital Signs (Past 12 Hours) Vital Signs Temp Pulse Pulse Resp BP Pulse Ox O2 Del Method 05/25/25 07:49 97.9 F 85 16 127/82 96 Room Air 05/25/25 07:37 88 05/25/25 06:30 97.9 F 96 H 16 120/65 94 Room Air 05/25/25 04:30 98.2 F 92 H 18 129/61 93 Room Air 05/25/25 02:25 98.4 F 91 H 16 116/74 93 Room Air 05/25/25 00:30 99.7 F H 94 H 16 108/69 92 Room Air 05/24/25 23:30 98.4 F 98 H 16 110/73 91 Room Air PG Care Time/CCT Total # of Minutes Spent Total Time Spent with Patient: Total time spent is greater than 50% in coordination of care (as documented) at patient's floor/unit and/or counseling patient: Coding Level of Care Code 31785 SUB INP/OBS CARE 2/35MIN Diagnoses Alcohol use disorder, severe, dependence F10.20 Alcohol withdrawal syndrome, with delirium F10.931 Complication of substance-induced condition: with delirium Alcohol withdrawal with inpatient treatment F10.939 Time Spent (min) 35 (2) Alcohol withdrawal Complication of substance-induced condition: with delirium Qualified Code(s): F10.931 - Alcohol use, unspecified with withdrawal delirium
[2025-05-25 14:27] VITALS: O2SAT 96
[2025-05-25 15:34] VITALS: BP 146/86; PULSE 88; RESP 18; TEMP 98.6
--- NOTE | 2025-05-25 16:00 | Discharge Summary ---
Date of Service May 25, 2025 Admission HPI Per Admitting Provider Is a 44-year-old with a history of severe alcohol use disorder, anxiety who presents to the hospital today on account of alcohol intoxication and withdrawal. Patient is requesting detoxification. According to the patient, she has been struggling with alcohol dependence for several years and says she drinks approximately 4 bottles of wine every day and occasionally drinks vodka as well. He said her last drink was earlier today. She presents to the emergency department with tremors, vital signs showed she was tachycardic and had a blood alcohol level of the above 300. She has had previous hospital admissions admissions for alcohol withdrawal. She received loading dose of phenobarbital in the emergency department, will be admitted to the hospital further management. Admission Exam (Per Admitting) Constitutional The patient is awake, alert and oriented 3, well developed and well nourished, normocephalic and atraumatic, lying in bed and in no acute distress. HEENT--PERRL, EOMI, mucous membranes and oropharynx mildly dry Neck--supple. No JVD. No bruits. Thyroid normal, trachea midline, no adenopathy. Heart--normal S1 and S2. No murmurs, rubs or gallops. Lungs--clear bilaterally, no respiratory distress, no accessory muscle use. Abdomen--normal bowel sounds and soft. Extremities--no cyanosis or clubbing. No edema. Dermatologic--normal skin turgor, normal color, no abnormal lymph nodes, no rash. Neurologic--cranial nerves II through XII grossly intact. Rheumatologic--normal range of motion. Psychiatric--normal affect. Discharge Data Consultations 05/24/25 16:49 ED Decision to Admit Stat Hospital Course (1) Alcohol use disorder, severe, dependence: (2) Alcohol withdrawal: (3) Alcohol withdrawal with inpatient treatment: Plan This a 44-year-old female with a history of severe alcohol use disorder and severe dependence. Presents to the hospital seeking detox. 1. Severe alcohol use disorder: Received a loading dose of phenobarbital in the emergency department. Will add a dose of 120 mg twice daily as needed for agitation Monitor telemetry Fall and seizure precautions Thiamine and folic acid daily IV normal saline 100 cc/h Monitor electrolytes Feels a lot better today, Expressed a willingness to be discharged. Will discharge her and asked her to follow-up with her regular PCP. She was also advised to refrain from alcohol 2. 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 Disposition: Hopefully d/c home tomorrow Coding Level of Care Code 77637 INP/OBS DISCH >30 MIN Diagnoses Alcohol use disorder, severe, dependence F10.20 Alcohol withdrawal syndrome, with delirium F10.931 Complication of substance-induced condition: with delirium Alcohol withdrawal with inpatient treatment F10.939 Time Spent (min) 35
== END 2025-05-25 16:30 | disposition home or self-care (01) | DRG 897 ==
LOC: ED 13:35 → 2S 16:45 → INTOOBSV 16:45 → 2S 18:05